=== PATIENT | male | born 1975 | race Hispanic/Latino ===

== ENCOUNTER 2023-10-17 01:21 | Inpatient (IN) | payer BC ==
--- OUTSIDE RECORDS SUMMARY | 2023-10-17 01:24 | XMS REPORT | Continuity of Care Document ---
Author Name Unknown Address [address] [facility] [address] [place] [address] [facility] Address [address] [facility] 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 Role Phone John Pruett Primary Care Physician [phone] SINDI HOWELL Attending Clinician Unavailable Sindi Howell MD Attending Clinician [phone] LUMA JEFF Attending Clinician Unavailable CHAIM THOMAS Attending Clinician CHAIM Trinh Attending Clinician Janessa cantu Doctor Unassigned, Sammy Martinez Attending Clinician U fabiolaailLuma Lion Attending Clinician [phone] [facility] Attending Clinician Chaim Trinh MD Attending Clinician [phone] Payers Payer Name Policy Type Policy Number Effective Date Expirati on Date Source Problems Condition Name Condition Details Condition Category Status Onset Date Resolution Date Last Treatment Date Treating Clinician Comments Source Primary hypertensi on Primary hypertensi on Disease Active 01-10 00:00: 00 [facility] Leg edema Leg edema Disease Active 01-10 00:00: 00 [facility] KWAKU (obstructi ve sleep apnea) KWAKU (obstructi ve sleep apnea) Disease Active 01-10 00:00: 00 [facility] Type 2 diabetes mellitus without complicati on, without long-term current use of insulin Type 2 diabetes mellitus without complicati on, without long-term current use of insulin Disease Active 2021-10 00:00: 00 [facility] Hyperlipid emia, unspecifie d hyperlipid emia type Hyperlipid emia, unspecifie d hyperlipid emia type Disease Active 2021-10 018 00:00: 00 [facility] Cigarette smoker Cigarette smoker Disease Active 2021-10 0 00:00: 00 [facility] Morbid obesity Morbid obesity Disease Active 2021-10 0 00:00: 00 [facility] Hypertensi ve urgency Hypertensi ve urgency Disease Active 2021-10 00:00: 00 [facility] Allergies, Adverse Reactions, Alerts Allergy Name Allergy Type Status Severity Reaction(s) Onset Date Inactive Date Treating Clinician Comments Source NO KNOWN ALLERGIE S Drug Class Active [facility] Social History Social Habit Start Date Stop Date Quantity Comments Source History of tobacco use Cigarette Smoker [facility] Alcohol intake 2023-08-01 00:00:00 2023-08-01 00:00:00 Ex-drinker (finding) [facility] History of Social function 2023-08-01 00:00:00 2023-08-01 00:00:00 [facility] Exposure to SARS-CoV-2 (event) 2022-12-31 00:00:00 2023-01-10 13:29:00 Not sure [facility] Tobacco use and exposure 2022-08-03 00:00:00 2022-08-03 00:00:00 Smokeless tobacco non-user [facility] Sex Assigned At 1975 00:00:00 1975 00:00:00 [facility] Smoking Status Start Date Stop Date Source Tobacco smoking consumption unknown [facility] Occasional tobacco smoker 2022-08-03 00:00:00 [facility] Medications Ordered Medication Name Filled Medication Name Start Date Stop Date Current Medication? Ordering Clinician Indication Dosage Frequency Signature (SIG) Comments Components Source TERAZOSIN 1 mg capsule 2022-10 00:00: 00 Yes [id number] 1mg TAKE 1 CAPSULE BY MOUTH EVERYDAY AT BEDTIME [facility] terazosin 1 mg capsule 2022-1 0-16 00:00: 00 Yes [id number] 1mg Take 1 capsule by mouth at bedtime. [facility] terazosin 1 mg capsule 2022-1 0-16 00:00: 00 Yes [id number] 1mg Take 1 capsule by mouth at bedtime. [facility] terazosin 1 mg capsule 2022-1 0-16 00:00: 00 Yes [id number] 1mg Take 1 capsule by mouth at bedtime. [facility] terazosin 1 mg capsule 2022-1 0-16 00:00: 00 Yes [id number] 1mg Take 1 capsule by mouth at bedtime. [facility] terazosin 1 mg capsule 2022-1 0-16 00:00: 00 Yes [id number] 1mg Take 1 capsule by mouth at bedtime. [facility] terazosin 1 mg capsule 2022-1 0-16 00:00: 00 14 00:00 :00 No [id number] 1mg Take 1 capsule by mouth at bedtime. [facility] amLODIPine 5 mg tablet 3-0 6-23 00:00: 00 Yes 5mg Take 1 tablet by mouth in the morning. [facility] amLODIPine 5 mg tablet 2022-0 6-23 00:00: 00 Yes 5mg Take 1 tablet by mouth in the morning. [facility] amLODIPine 5 mg tablet 3-0 6-23 00:00: 00 Yes 5mg Take 1 tablet by mouth in the morning. [facility] amLODIPine 5 mg tablet 3-0 6-23 00:00: 00 Yes 5mg Take 1 tablet by mouth in the morning. [facility] amLODIPine 5 mg tablet 3-0 6-23 00:00: 00 Yes 5mg Take 1 tablet by mouth in the morning. [facility] amLODIPine 5 mg tablet 3-0 6-23 00:00: 00 Yes 5mg Take 1 tablet by mouth in the morning. [facility] amLODIPine 5 mg tablet 3-0 6-23 00:00: 00 Yes 5mg Take 1 tablet by mouth in the morning. [facility] glimepiride 2 mg tablet 3-0 27 14:20: 13 Yes 2mg Take 1 tablet by mouth in the morning and 1 tablet in the evening. [facility] glimepiride 2 mg tablet 2023-0 -27 14:20: 13 Yes 2mg Take 1 tablet by mouth in the morning and 1 tablet in the evening. [facility] glimepiride 2 mg tablet 3-0 01-10 14:20: 13 Yes 2mg Take 1 tablet by mouth in the morning and 1 tablet in the evening. [facility] glimepiride 2 mg tablet 3-0 01-10 14:20: 13 Yes 2mg Take 1 tablet by mouth in the morning and 1 tablet in the evening. [facility] glimepiride 2 mg tablet 3-0 01-10 14:20: 13 Yes 2mg Take 1 tablet by mouth in the morning and 1 tablet in the evening. [facility] glimepiride 2 mg tablet 3-0 01-10 14:20: 13 Yes 2mg Take 1 tablet by mouth in the morning and 1 tablet in the evening. [facility] glimepiride 2 mg tablet 3-0 01-10 14:20: 13 Yes 2mg Take 1 tablet by mouth in the morning and 1 tablet in the evening. [facility] glimepiride 2 mg tablet 3-0 01-10 14:20: 13 Yes 2mg Take 1 tablet by mouth in the morning and 1 tablet in the evening. [facility] glimepiride 2 mg tablet 3-0 01-10 14:20: 13 Yes 2mg Take 1 tablet by mouth in the morning and 1 tablet in the evening. [facility] glimepiride 2 mg tablet 3-0 27 14:20: 13 Yes 2mg Take 1 tablet by mouth in the morning and 1 tablet in the evening. [facility] glimepiride 2 mg tablet 3-0 27 14:20: 13 Yes 2mg Take 1 tablet by mouth in the morning and 1 tablet in the evening. [facility] glimepiride 2 mg tablet 2022-0 27 14:20: 13 Yes 2mg Take 1 tablet by mouth in the morning and 1 tablet in the evening. [facility] amLODIPine 5 mg tablet 2022-0 27 00:00: 00 Yes 5mg Take 1 tablet by mouth in the morning. [facility] amLODIPine 5 mg tablet 2022-0 27 00:00: 00 Yes 5mg Take 1 tablet by mouth in the morning. [facility] losartan 100 mg tablet 3-0 27 00:00: 00 Yes [id number] 100mg Take 1 tablet by mouth in the morning. [facility] amLODIPine 5 mg tablet 3-0 27 00:00: 00 Yes 5mg Take 1 tablet by mouth in the morning. [facility] losartan 100 mg tablet 3-0 27 00:00: 00 Yes [id number] 100mg Take 1 tablet by mouth in the morning. [facility] amLODIPine 5 mg tablet 2022-0 27 00:00: 00 Yes 5mg Take 1 tablet by mouth in the morning. [facility] losartan 100 mg tablet 3-0 27 00:00: 00 Yes [id number] 100mg Take 1 tablet by mouth in the morning. [facility] losartan 100 mg tablet 3-0 327 00:00: 00 Yes [id number] 100mg Take 1 tablet by mouth in the morning. [facility] losartan 100 mg tablet 3-0 327 00:00: 00 Yes [id number] 100mg Take 1 tablet by mouth in the morning. [facility] losartan 100 mg tablet 3-0 3-27 00:00: 00 Yes [id number] 100mg Take 1 tablet by mouth in the morning. [facility] losartan 100 mg tablet 3-0 3-27 00:00: 00 Yes [id number] 100mg Take 1 tablet by mouth in the morning. [facility] losartan 100 mg tablet 3-0 3-27 00:00: 00 Yes [id number] 100mg Take 1 tablet by mouth in the morning. [facility] losartan 100 mg tablet 2022-0 27 00:00: 00 Yes [id number] 100mg Take 1 tablet by mouth in the morning. [facility] amLODIPine 5 mg tablet 2022-0 01-10 00:00: 00 04-06 00:00 :00 No 5mg Take 1 tablet by mouth in the morning. [facility] hydrALAZINE 100 mg tablet 2022-0 01-09 00:00: 00 Yes [id number] 100mg Take 1 tablet by mouth every 8 (eight) hours. [facility] hydrALAZINE 100 mg tablet 2022-0 26 00:00: 00 Yes [id number] 100mg Take 1 tablet by mouth every 8 (eight) hours. [facility] hydrALAZINE 100 mg tablet 2022-0 01-09 00:00: 00 Yes [id number] 100mg Take 1 tablet by mouth every 8 (eight) hours. [facility] hydrALAZINE 100 mg tablet 2022-0 01-09 00:00: 00 Yes [id number] 100mg Take 1 tablet by mouth every 8 (eight) hours. [facility] hydrALAZINE 100 mg tablet 3-0 26 00:00: 00 Yes [id number] 100mg Take 1 tablet by mouth every 8 (eight) hours. [facility] hydrALAZINE 100 mg tablet 2022-0 26 00:00: 00 Yes [id number] 100mg Take 1 tablet by mouth every 8 (eight) hours. [facility] hydrALAZINE 100 mg tablet 3-0 26 00:00: 00 Yes [id number] 100mg Take 1 tablet by mouth every 8 (eight) hours. [facility] hydrALAZINE 100 mg tablet 3-0 -26 00:00: 00 Yes [id number] 100mg Take 1 tablet by mouth every 8 (eight) hours. [facility] hydrALAZINE 100 mg tablet 3-0 3-26 00:00: 00 Yes [id number] 100mg Take 1 tablet by mouth every 8 (eight) hours. [facility] hydrALAZINE 100 mg tablet 3-0 3-26 00:00: 00 Yes [id number] 100mg Take 1 tablet by mouth every 8 (eight) hours. [facility] hydrALAZINE 100 mg tablet 0 01-09 00:00: 00 Yes [id number] 100mg Take 1 tablet by mouth every 8 (eight) hours. [facility] hydrALAZINE 100 mg tablet 2022-0 01-09 00:00: 00 Yes [id number] 100mg Take 1 tablet by mouth every 8 (eight) hours. [facility] metFORMIN 1,000 mg tablet 2021-10 14:25: 07 Yes 1000mg Take 1,000 mg by mouth in the morning and 1,000 mg in the evening. Take with meals. [facility] glimepiride 2 mg tablet 2021-10 14:25: 07 Yes 2mg Take 2 mg by mouth in the morning and 2 mg in the evening. [facility] simvastatin 20 mg tablet 2021-10 14:25: 07 Yes 20mg Take 20 mg by mouth at bedtime. [facility] metFORMIN 1,000 mg tablet 2021-10 14:25: 07 Yes 1000mg Take 1,000 mg by mouth in the morning and 1,000 mg in the evening. Take with meals. [facility] glimepiride 2 mg tablet 2021-10 14:25: 07 Yes 2mg Take 2 mg by mouth in the morning and 2 mg in the evening. [facility] simvastatin 20 mg tablet 2021-10 14:25: 07 Yes 20mg Take 20 mg by mouth at bedtime. [facility] metFORMIN 1,000 mg tablet 2021-10 14:25: 07 Yes 1000mg Take 1,000 mg by mouth in the morning and 1,000 mg in the evening. Take with meals. [facility] glimepiride 2 mg tablet 2021-10 14:25: 07 Yes 2mg Take 2 mg by mouth in the morning and 2 mg in the evening. [facility] simvastatin 20 mg tablet 2021-10 14:25: 07 Yes 20mg Take 20 mg by mouth at bedtime. [facility] metFORMIN 1,000 mg tablet 2021-10 14:25: 07 Yes 1000mg Take 1,000 mg by mouth in the morning and 1,000 mg in the evening. Take with meals. [facility] glimepiride 2 mg tablet 2021-10 14:25: 07 Yes 2mg Take 2 mg by mouth in the morning and 2 mg in the evening. [facility] simvastatin 20 mg tablet 2021-10 14:25: 07 Yes 20mg Take 20 mg by mouth at bedtime. [facility] metFORMIN 1,000 mg tablet 2021-10 14:25: 07 Yes 1000mg Take 1,000 mg by mouth in the morning and 1,000 mg in the evening. Take with meals. [facility] simvastatin 20 mg tablet 2021-10 14:25: 07 Yes 20mg Take 20 mg by mouth at bedtime. [facility] metFORMIN 1,000 mg tablet 2021-10 14:25: 07 Yes 1000mg Take 1,000 mg by mouth in the morning and 1,000 mg in the evening. Take with meals. [facility] simvastatin 20 mg tablet 2021-10 14:25: 07 Yes 20mg Take 20 mg by mouth at bedtime. [facility] metFORMIN 1,000 mg tablet 2021-10 14:25: 07 Yes 1000mg Take 1,000 mg by mouth in the morning and 1,000 mg in the evening. Take with meals. [facility] simvastatin 20 mg tablet 2021-10 14:25: 07 Yes 20mg Take 20 mg by mouth at bedtime. [facility] metFORMIN 1,000 mg tablet 2021-10 14:25: 07 Yes 1000mg Take 1,000 mg by mouth in the morning and 1,000 mg in the evening. Take with meals. [facility] simvastatin 20 mg tablet 2021-10 14:25: 07 Yes 20mg Take 20 mg by mouth at bedtime. [facility] metFORMIN 1,000 mg tablet 2021-10 14:25: 07 Yes 1000mg Take 1,000 mg by mouth in the morning and 1,000 mg in the evening. Take with meals. [facility] simvastatin 20 mg tablet 2021-10 14:25: 07 Yes 20mg Take 20 mg by mouth at bedtime. [facility] metFORMIN 1,000 mg tablet 2021-10 14:25: 07 Yes 1000mg Take 1,000 mg by mouth in the morning and 1,000 mg in the evening. Take with meals. [facility] simvastatin 20 mg tablet 2021-10 14:25: 07 Yes 20mg Take 20 mg by mouth at bedtime. [facility] metFORMIN 1,000 mg tablet 2021-10 14:25: 07 Yes 1000mg Take 1,000 mg by mouth in the morning and 1,000 mg in the evening. Take with meals. [facility] simvastatin 20 mg tablet 2021-10 14:25: 07 Yes 20mg Take 20 mg by mouth at bedtime. [facility] metFORMIN 1,000 mg tablet 2021-10 14:25: 07 Yes 1000mg Take 1,000 mg by mouth in the morning and 1,000 mg in the evening. Take with meals. [facility] simvastatin 20 mg tablet 2021-10 14:25: 07 Yes 20mg Take 20 mg by mouth at bedtime. [facility] metFORMIN 1,000 mg tablet 2021-10 14:25: 07 Yes 1000mg Take 1,000 mg by mouth in the morning and 1,000 mg in the evening. Take with meals. [facility] simvastatin 20 mg tablet 2021-10 14:25: 07 Yes 20mg Take 20 mg by mouth at bedtime. [facility] metFORMIN 1,000 mg tablet 2021-10 14:25: 07 Yes 1000mg Take 1,000 mg by mouth in the morning and 1,000 mg in the evening. Take with meals. [facility] simvastatin 20 mg tablet 2021-10 14:25: 07 Yes 20mg Take 20 mg by mouth at bedtime. [facility] metFORMIN 1,000 mg tablet 2021-10 14:25: 07 Yes 1000mg Take 1,000 mg by mouth in the morning and 1,000 mg in the evening. Take with meals. [facility] simvastatin 20 mg tablet 2021-10 14:25: 07 Yes 20mg Take 20 mg by mouth at bedtime. [facility] metFORMIN 1,000 mg tablet 2021-10 14:25: 07 Yes 1000mg Take 1,000 mg by mouth in the morning and 1,000 mg in the evening. Take with meals. [facility] simvastatin 20 mg tablet 2021-10 14:25: 07 Yes 20mg Take 20 mg by mouth at bedtime. [facility] losartan 100 mg tablet 2021-10 14:24: 23 09-07 00:00 :00 No 100mg Take 100 mg by mouth in the morning. [facility] losartan 100 mg tablet 2021-10 14:24: 23 09-07 00:00 :00 No 100mg Take 100 mg by mouth in the morning. [facility] losartan 100 mg tablet 2021-10 14:24: 09-07 00:00 :00 No 100mg Take 100 mg by mouth in the morning. [facility] amLODIPine 10 mg tablet 2021-10 00:00: 00 Yes [id number] 10mg Take 1 tablet by mouth in the morning. [facility] hydrALAZINE 100 mg tablet 2021-10 00:00: 00 Yes [id number] 100mg Take 1 tablet by mouth every 8 (eight) hours. [facility] losartan 100 mg tablet 2021-10 00:00: 00 Yes [id number] 100mg Take 1 tablet by mouth in the morning. [facility] amLODIPine 10 mg tablet 2021-10 00:00: 00 Yes [id number] 10mg Take 1 tablet by mouth in the morning. [facility] hydrALAZINE 100 mg tablet 2021-10 00:00: 00 Yes [id number] 100mg Take 1 tablet by mouth every 8 (eight) hours. [facility] losartan 100 mg tablet 2021-10 00:00: 00 Yes [id number] 100mg Take 1 tablet by mouth in the morning. [facility] amLODIPine 10 mg tablet 2021-10 00:00: 00 Yes [id number] 10mg Take 1 tablet by mouth in the morning. [facility] hydrALAZINE 100 mg tablet 2021-10 00:00: 00 Yes [id number] 100mg Take 1 tablet by mouth every 8 (eight) hours. [facility] losartan 100 mg tablet 2021-10 00:00: 00 Yes [id number] 100mg Take 1 tablet by mouth in the morning. [facility] amLODIPine 10 mg tablet 2021-10 00:00: 00 Yes [id number] 10mg Take 1 tablet by mouth in the morning. [facility] hydrALAZINE 100 mg tablet 2021-10 00:00: 00 Yes [id number] 100mg Take 1 tablet by mouth every 8 (eight) hours. [facility] losartan 100 mg tablet 2021-10 00:00: 00 Yes [id number] 100mg Take 1 tablet by mouth in the morning. [facility] amLODIPine 10 mg tablet 2021-10 00:00: 00 Yes [id number] 10mg Take 1 tablet by mouth in the morning. [facility] hydrALAZINE 100 mg tablet 2021-10 00:00: 00 Yes [id number] 100mg Take 1 tablet by mouth every 8 (eight) hours. [facility] losartan 100 mg tablet 2021-10 00:00: 00 Yes [id number] 100mg Take 1 tablet by mouth in the morning. [facility] amLODIPine 10 mg tablet 2021-10 00:00: 00 Yes [id number] 10mg Take 1 tablet by mouth in the morning. [facility] hydrALAZINE 100 mg tablet 2021-10 00:00: 00 Yes [id number] 100mg Take 1 tablet by mouth every 8 (eight) hours. [facility] losartan 100 mg tablet 2021-10 00:00: 00 Yes [id number] 100mg Take 1 tablet by mouth in the morning. [facility] amLODIPine 10 mg tablet 2021-10 00:00: 00 Yes [id number] 10mg Take 1 tablet by mouth in the morning. [facility] hydrALAZINE 100 mg tablet 2021-10 00:00: 00 Yes [id number] 100mg Take 1 tablet by mouth every 8 (eight) hours. [facility] losartan 100 mg tablet 2021-10 00:00: 00 Yes [id number] 100mg Take 1 tablet by mouth in the morning. [facility] amLODIPine 10 mg tablet 2021-10 00:00: 00 Yes [id number] 10mg Take 1 tablet by mouth in the morning. [facility] hydrALAZINE 100 mg tablet 2021-10 00:00: 00 Yes [id number] 100mg Take 1 tablet by mouth every 8 (eight) hours. [facility] losartan 100 mg tablet 2021-10 00:00: 00 Yes [id number] 100mg Take 1 tablet by mouth in the morning. [facility] amLODIPine 10 mg tablet 2021-10 00:00: 00 Yes [id number] 10mg Take 1 tablet by mouth in the morning. [facility] losartan 100 mg tablet 2021-10 00:00: 00 Yes [id number] 100mg Take 1 tablet by mouth in the morning. [facility] losartan 100 mg tablet 2021-10 00:00: 00 Yes [id number] 100mg Take 1 tablet by mouth in the morning. [facility] losartan 100 mg tablet 2021-10 00:00: 00 Yes [id number] 100mg Take 1 tablet by mouth in the morning. [facility] amLODIPine 10 mg tablet 2021-10 00:00: 00 01-10 00:00 :00 No [id number] 10mg Take 1 tablet by mouth in the morning. [facility] amLODIPine 10 mg tablet 2021-10 00:00: 00 01-10 00:00 :00 No [id number] 10mg Take 1 tablet by mouth in the morning. [facility] losartan 100 mg tablet 2021-10 00:00: 00 01-10 00:00 :00 No [id number] 100mg Take 1 tablet by mouth in the morning. [facility] hydrALAZINE 100 mg tablet 2021-10 00:00: 00 01-09 00:00 :00 No [id number] 100mg Take 1 tablet by mouth every 8 (eight) hours. [facility] hydrALAZINE 50 mg tablet 2021-10 16:05: 39 08-20 00:00 :00 No 50mg Take 50 mg by mouth in the morning and 50 mg in the evening. [facility] hydrALAZINE 50 mg tablet 2021-10 16:05: 39 08-20 00:00 :00 No 50mg Take 50 mg by mouth in the morning and 50 mg in the evening. [facility] carvediloL 25 mg tablet 2021-10 00:00: 00 Yes [id number] 25mg Take 1 tablet by mouth in the morning and 1 tablet in the evening. Take with meals. [facility] amLODIPine 10 mg tablet 2021-10 00:00: 00 Yes [id number] 5mg Take 0.5 tablets by mouth in the morning. [facility] hydrALAZINE 50 mg tablet 2021-10 00:00: 00 Yes [id number] 50mg Take 1 tablet by mouth every 8 (eight) hours. [facility] carvediloL 25 mg tablet 2021-10 00:00: 00 Yes [id number] 25mg Take 1 tablet by mouth in the morning and 1 tablet in the evening. Take with meals. [facility] carvediloL 25 mg tablet 2021-10 00:00: 00 Yes [id number] 25mg Take 1 tablet by mouth in the morning and 1 tablet in the evening. Take with meals. [facility] carvediloL 25 mg tablet 2021-10 00:00: 00 Yes [id number] 25mg Take 1 tablet by mouth in the morning and 1 tablet in the evening. Take with meals. [facility] carvediloL 25 mg tablet 2021-10 00:00: 00 Yes [id number] 25mg Take 1 tablet by mouth in the morning and 1 tablet in the evening. Take with meals. [facility] carvediloL 25 mg tablet 2021-10 00:00: 00 Yes [id number] 25mg Take 1 tablet by mouth in the morning and 1 tablet in the evening. Take with meals. [facility] carvediloL 25 mg tablet 2021-10 00:00: 00 Yes [id number] 25mg Take 1 tablet by mouth in the morning and 1 tablet in the evening. Take with meals. [facility] carvediloL 25 mg tablet 2021-10 00:00: 00 Yes [id number] 25mg Take 1 tablet by mouth in the morning and 1 tablet in the evening. Take with meals. [facility] carvediloL 25 mg tablet 2021-10 00:00: 00 Yes [id number] 25mg Take 1 tablet by mouth in the morning and 1 tablet in the evening. Take with meals. [facility] carvediloL 25 mg tablet 2021-10 00:00: 00 Yes [id number] 25mg Take 1 tablet by mouth in the morning and 1 tablet in the evening. Take with meals. [facility] carvediloL 25 mg tablet 2021-10 00:00: 00 Yes [id number] 25mg Take 1 tablet by mouth in the morning and 1 tablet in the evening. Take with meals. [facility] carvediloL 25 mg tablet 2021-10 00:00: 00 Yes [id number] 25mg Take 1 tablet by mouth in the morning and 1 tablet in the evening. Take with meals. [facility] carvediloL 25 mg tablet 2021-10 00:00: 00 Yes [id number] 25mg Take 1 tablet by mouth in the morning and 1 tablet in the evening. Take with meals. [facility] carvediloL 25 mg tablet 2021-10 00:00: 00 Yes [id number] 25mg Take 1 tablet by mouth in the morning and 1 tablet in the evening. Take with meals. [facility] carvediloL 25 mg tablet 2021-10 00:00: 00 Yes [id number] 25mg Take 1 tablet by mouth in the morning and 1 tablet in the evening. Take with meals. [facility] carvediloL 25 mg tablet 2021-10 00:00: 00 Yes [id number] 25mg Take 1 tablet by mouth in the morning and 1 tablet in the evening. Take with meals. [facility] carvediloL 25 mg tablet 2021-10 00:00: 00 Yes [id number] 25mg Take 1 tablet by mouth in the morning and 1 tablet in the evening. Take with meals. [facility] carvediloL 25 mg tablet 2021-10 00:00: 00 Yes [id number] 25mg Take 1 tablet by mouth in the morning and 1 tablet in the evening. Take with meals. [facility] carvediloL 25 mg tablet 2021-10 00:00: 00 Yes [id number] 25mg Take 1 tablet by mouth in the morning and 1 tablet in the evening. Take with meals. [facility] carvediloL 25 mg tablet 2021-10 00:00: 00 Yes [id number] 25mg Take 1 tablet by mouth in the morning and 1 tablet in the evening. Take with meals. [facility] carvediloL 25 mg tablet 2021-10 00:00: 00 Yes [id number] 25mg Take 1 tablet by mouth in the morning and 1 tablet in the evening. Take with meals. [facility] carvediloL 25 mg tablet 2021-10 00:00: 00 Yes [id number] 25mg Take 1 tablet by mouth in the morning and 1 tablet in the evening. Take with meals. [facility] carvediloL 25 mg tablet 2021-10 00:00: 00 Yes [id number] 25mg Take 1 tablet by mouth in the morning and 1 tablet in the evening. Take with meals. [facility] amLODIPine 10 mg tablet 2021-10 00:00: 00 09-07 00:00 :00 No [id number] 5mg Take 0.5 tablets by mouth in the morning. [facility] hydrALAZINE 50 mg tablet 2021-10 00:00: 00 09-07 00:00 :00 No [id number] 50mg Take 1 tablet by mouth every 8 (eight) hours. [facility] amLODIPine 10 mg tablet 2021-10 00:00: 00 09-07 00:00 :00 No [id number] 5mg Take 0.5 tablets by mouth in the morning. [facility] hydrALAZINE 50 mg tablet 2021-10 00:00: 00 09-07 00:00 :00 No [id number] 50mg Take 1 tablet by mouth every 8 (eight) hours. [facility] amLODIPine 10 mg tablet 2021-10 00:00: 00 09-07 00:00 :00 No [id number] 5mg Take 0.5 tablets by mouth in the morning. [facility] hydrALAZINE 50 mg tablet 2021-10 00:00: 00 09-07 00:00 :00 No [id number] 50mg Take 1 tablet by mouth every 8 (eight) hours. [facility] carvediloL 12.5 mg tablet 2021-10 0- 00:00: 00 Yes [id number] 12.5mg Take 1 tablet by mouth in the morning and 1 tablet in the evening. Take with meals. [facility] carvediloL 12.5 mg tablet 2021-10 0-20 00:00: 00 Yes [id number] 12.5mg Take 1 tablet by mouth in the morning and 1 tablet in the evening. Take with meals. [facility] carvediloL 12.5 mg tablet 2021-10 0-20 00:00: 00 08-20 00:00 :00 No [id number] 12.5mg Take 1 tablet by mouth in the morning and 1 tablet in the evening. Take with meals. [facility] cloNIDine (CATAPRES) tablet 0.1 mg 2021-10 018 22:00: 00 08-03 21:05 :[id number] [facility] cloNIDine (CATAPRES) tablet 0.1 mg 2021-10 018 22:00: 00 08-03 21:05 :00 No [id number] .1mg 0.1 mg, Oral, ONCE, 1 dose, On Tue08/03/22 at 1700, Routine [facility] cloNIDine (CATAPRES) tablet 0.1 mg 2021-10 018 22:00: 00 08-03 21:05 :[id number] [facility] cloNIDine (CATAPRES) tablet 0.1 mg 2021-10 018 22:00: 00 08-03 21:05 :00 No [id number] .1mg 0.1 mg, Oral, ONCE, 1 dose, On Tue08/03/22 at 1700, Routine [facility] cloNIDine (CATAPRES) tablet 0.1 mg 2021-1018 22:00: 00 08-03 21:05 :[id number] [facility] cloNIDine (CATAPRES) tablet 0.1 mg 2021-10 018 22:00: 00 08-03 21:05 :00 No [id number] .1mg 0.1 mg, Oral, ONCE, 1 dose, On Tue08/03/22 at 1700, Routine [facility] metFORMIN 1,000 mg tablet 2021-10 16:09: 55 Yes 1000mg Take 1,000 mg by mouth in the morning and 1,000 mg in the evening. Take with meals. [facility] losartan 100 mg tablet 2021-10 16:09: 55 Yes 100mg Take 100 mg by mouth in the morning. [facility] glimepiride 2 mg tablet 2021-10 16:09: 55 Yes 2mg Take 2 mg by mouth in the morning and 2 mg in the evening. [facility] simvastatin 20 mg tablet 2021-10 16:09: 55 Yes 20mg Take 20 mg by mouth at bedtime. [facility] metFORMIN 1,000 mg tablet 2021-10 16:09: 55 Yes 1000mg Take 1,000 mg by mouth in the morning and 1,000 mg in the evening. Take with meals. [facility] glimepiride 2 mg tablet 2021-10 16:09: 55 Yes 2mg Take 2 mg by mouth in the morning and 2 mg in the evening. [facility] simvastatin 20 mg tablet 2021-10 16:09: 55 Yes 20mg Take 20 mg by mouth at bedtime. [facility] metFORMIN 1,000 mg tablet 2021-10 16:09: 55 Yes 1000mg Take 1,000 mg by mouth in the morning and 1,000 mg in the evening. Take with meals. [facility] glimepiride 2 mg tablet 2021-10 16:09: 55 Yes 2mg Take 2 mg by mouth in the morning and 2 mg in the evening. [facility] simvastatin 20 mg tablet 2021-10 16:09: 55 Yes 20mg Take 20 mg by mouth at bedtime. [facility] metFORMIN 1,000 mg tablet 2021-10 16:09: 55 Yes 1000mg Take 1,000 mg by mouth in the morning and 1,000 mg in the evening. Take with meals. [facility] glimepiride 2 mg tablet 2021-10 16:09: 55 Yes 2mg Take 2 mg by mouth in the morning and 2 mg in the evening. [facility] simvastatin 20 mg tablet 2021 16:09: 55 Yes 20mg Take 20 mg by mouth at bedtime. [facility] metFORMIN 1,000 mg tablet 2021-10 16:09: 55 Yes 1000mg Take 1,000 mg by mouth in the morning and 1,000 mg in the evening. Take with meals. [facility] glimepiride 2 mg tablet 2021-10 16:09: 55 Yes 2mg Take 2 mg by mouth in the morning and 2 mg in the evening. [facility] simvastatin 20 mg tablet 2021- 018 16:09: 55 Yes 20mg Take 20 mg by mouth at bedtime. [facility] metFORMIN 1,000 mg tablet 2021-1018 16:09: 55 Yes 1000mg Take 1,000 mg by mouth in the morning and 1,000 mg in the evening. Take with meals. [facility] glimepiride 2 mg tablet 2021-10 16:09: 55 Yes 2mg Take 2 mg by mouth in the morning and 2 mg in the evening. [facility] simvastatin 20 mg tablet 2021-10 16:09: 55 Yes 20mg Take 20 mg by mouth at bedtime. [facility] metFORMIN 1,000 mg tablet 2021-10 16:09: 55 Yes 1000mg Take 1,000 mg by mouth in the morning and 1,000 mg in the evening. Take with meals. [facility] glimepiride 2 mg tablet 2021-10 16:09: 55 Yes 2mg Take 2 mg by mouth in the morning and 2 mg in the evening. [facility] simvastatin 20 mg tablet 2021-10 16:09: 55 Yes 20mg Take 20 mg by mouth at bedtime. [facility] metFORMIN 1,000 mg tablet 2021-10 16:09: 55 Yes 1000mg Take 1,000 mg by mouth in the morning and 1,000 mg in the evening. Take with meals. [facility] glimepiride 2 mg tablet 2021-10 16:09: 55 Yes 2mg Take 2 mg by mouth in the morning and 2 mg in the evening. [facility] simvastatin 20 mg tablet 2021-10 16:09: 55 Yes 20mg Take 20 mg by mouth at bedtime. [facility] metFORMIN 1,000 mg tablet 2021-1018 16:09: 55 Yes 1000mg Take 1,000 mg by mouth in the morning and 1,000 mg in the evening. Take with meals. [facility] losartan 100 mg tablet 2021-18 16:09: 55 Yes 100mg Take 100 mg by mouth in the morning. [facility] hydrALAZINE 50 mg tablet 2021-18 16:09: 55 Yes 50mg Take 50 mg by mouth in the morning and 50 mg in the evening. [facility] glimepiride 2 mg tablet 2021-18 16:09: 55 Yes 2mg Take 2 mg by mouth in the morning and 2 mg in the evening. [facility] simvastatin 20 mg tablet 2021-18 16:09: 55 Yes 20mg Take 20 mg by mouth at bedtime. [facility] metFORMIN 1,000 mg tablet 2021-10 16:09: 55 Yes 1000mg Take 1,000 mg by mouth in the morning and 1,000 mg in the evening. Take with meals. [facility] losartan 100 mg tablet 2021- 16:09: 55 Yes 100mg Take 100 mg by mouth in the morning. [facility] hydrALAZINE 50 mg tablet 2021-10 16:09: 55 Yes 50mg Take 50 mg by mouth in the morning and 50 mg in the evening. [facility] glimepiride 2 mg tablet 2021-10 16:09: 55 Yes 2mg Take 2 mg by mouth in the morning and 2 mg in the evening. [facility] simvastatin 20 mg tablet 2021- 16:09: 55 Yes 20mg Take 20 mg by mouth at bedtime. [facility] metFORMIN 1,000 mg tablet 2021-10 16:09: 55 Yes 1000mg Take 1,000 mg by mouth in the morning and 1,000 mg in the evening. Take with meals. [facility] losartan 100 mg tablet 2021-10 16:09: 55 Yes 100mg Take 100 mg by mouth in the morning. [facility] hydrALAZINE 50 mg tablet 2021- 018 16:09: 55 Yes 50mg Take 50 mg by mouth in the morning and 50 mg in the evening. [facility] glimepiride 2 mg tablet 2021-10 16:09: 55 Yes 2mg Take 2 mg by mouth in the morning and 2 mg in the evening. [facility] simvastatin 20 mg tablet 2021-10 16:09: 55 Yes 20mg Take 20 mg by mouth at bedtime. [facility] metFORMIN 1,000 mg tablet 2021-10 16:09: 55 Yes 1000mg Take 1,000 mg by mouth in the morning and 1,000 mg in the evening. Take with meals. [facility] losartan 100 mg tablet 2021-10 16:09: 55 Yes 100mg Take 100 mg by mouth in the morning. [facility] hydrALAZINE 50 mg tablet 2021-10 16:09: 55 Yes 50mg Take 50 mg by mouth in the morning and 50 mg in the evening. [facility] glimepiride 2 mg tablet 2021-10 16:09: 55 Yes 2mg Take 2 mg by mouth in the morning and 2 mg in the evening. [facility] simvastatin 20 mg tablet 2021-10 16:09: 55 Yes 20mg Take 20 mg by mouth at bedtime. [facility] metFORMIN 1,000 mg tablet 2021-10 16:09: 55 Yes 1000mg Take 1,000 mg by mouth in the morning and 1,000 mg in the evening. Take with meals. [facility] losartan 100 mg tablet 2021-10 16:09: 55 Yes 100mg Take 100 mg by mouth in the morning. [facility] glimepiride 2 mg tablet 2021-10 16:09: 55 Yes 2mg Take 2 mg by mouth in the morning and 2 mg in the evening. [facility] simvastatin 20 mg tablet 2021-10 16:09: 55 Yes 20mg Take 20 mg by mouth at bedtime. [facility] triamterene -hydrochlor othiazide 37.5-25 mg per capsule 2021-10 00:00: 00 Yes [id number] 1{capsu le} Take 1 capsule by mouth every morning. [facility] amLODIPine 10 mg tablet 2021-10 0-18 00:00: 00 Yes [id number] 10mg Take 1 tablet by mouth in the morning. [facility] triamterene -hydrochlor othiazide 37.5-25 mg per capsule 2021-10 0-18 00:00: 00 Yes [id number] 1{capsu le} Take 1 capsule by mouth every morning. [facility] amLODIPine 10 mg tablet 2021-10 0-18 00:00: 00 Yes [id number] 10mg Take 1 tablet by mouth in the morning. [facility] amLODIPine 10 mg tablet 2021-10 018 00:00: 00 Yes [id number] 10mg Take 1 tablet by mouth in the morning. [facility] amLODIPine 10 mg tablet 2021-10 018 00:00: 00 Yes [id number] 10mg Take 1 tablet by mouth in the morning. [facility] amLODIPine 10 mg tablet 2021-10 018 00:00: 00 08-20 00:00 :00 No [id number] 10mg Take 1 tablet by mouth in the morning. [facility] amLODIPine 10 mg tablet 2021-10 018 00:00: 00 08-20 00:00 :00 No [id number] 10mg Take 1 tablet by mouth in the morning. [facility] triamterene -hydrochlor othiazide 37.5-25 mg per capsule 2021-10 018 00:00: 00 08-05 00:00 :00 No [id number] 1{capsu le} Take 1 capsule by mouth every morning. [facility] triamterene -hydrochlor othiazide 37.5-25 mg per capsule 2021-10 018 00:00: 00 08-05 00:00 :00 No [id number] 1{capsu le} Take 1 capsule by mouth every morning. [facility] Vital Signs Vital Name Observation Time Observation Value Comments S nadja Systolic blood pressure 2023-08-01 14:44:00 177 mm[Hg] [facility] Diastolic blood pressure 2023-08-01 14:44:00 101 mm[Hg] [facility] Heart rate 2023-08-01 14:44:00 72 /min Unive [facility] Oxygen saturation in Arterial blood by Pulse oximetry 2023-08-01 14:44:00 92 /min [facility] Respiratory rate 2023-08-01 14:42:00 18 /min [facility] Body height 2023-08-01 14:42:00 170.2 cm [facility] Body weight 2023-08-01 14:42:00 130.273 kg [facility] BMI 2023-08-01 14:42:00 44.98 kg/m2 [facility] Systolic blood pressure 2023-01-10 19:27:00 152 mm[Hg] [facility] Diastolic blood pressure 2023-01-10 19:27:00 85 mm[Hg] [facility] Heart rate 2023-01-10 19:27:00 73 /min Un[facility] Respiratory rate 2023-01-10 19:27:00 18 /min [facility] Oxygen saturation in Arterial blood by Pulse oximetry 2023-01-10 19:27:00 97 /min [facility] Body temperature 2023-01-10 19:24:00 36.5 Franci [facility] Body height 2023-01-10 19:24:00 170.2 cm [facility] Body weight 2023-01-10 19:24:00 130.137 kg [facility] BMI 2023-01-10 19:24:00 44.93 kg/m2 [facility] Systolic blood pressure 2022-10-07 20:30:00 154 mm[Hg] [facility] Diastolic blood pressure 2022-10-07 20:30:00 77 mm[Hg] [facility] Heart rate 2022-10-07 20:26:00 78 /min [facility] Body temperature 2022-10-07 20:26:00 37 Franci [facility] Respiratory rate 2022-10-07 20:26:00 16 /min [facility] Body height 2022-10-07 20:26:00 170.2 cm [facility] Body weight 2022-10-07 20:26:00 134.718 kg [facility] BMI 2022-10-07 20:26:00 46.52 kg/m2 [facility] Oxygen saturation in Arterial blood by Pulse oximetry 2022-10-07 20:26:00 96 /min [facility] Systolic blood pressure 2022-09-07 20:08:00 164 mm[Hg] [facility] Diastolic blood pressure 2022-09-07 20:08:00 95 mm[Hg] [facility] Heart rate 2022-09-07 20:08:00 75 /min [facility] Oxygen saturation in Arterial blood by Pulse oximetry 2022-09-07 20:08:00 98 /min [facility] Respiratory rate 2022-09-07 20:04:00 19 /min [facility] Body height 2022-09-07 20:04:00 170.2 cm [facility] Body weight 2022-09-07 20:04:00 134.673 kg [facility] BMI 2022-09-07 20:04:00 46.50 kg/m2 [facility] Systolic blood pressure 2022-08-03 21:42:00 229 mm[Hg] [facility] Diastolic blood pressure 2022-08-03 21:42:00 126 mm[Hg] [facility] Heart rate 2022-08-03 21:42:00 80 /min [facility] 2022-08-03 20:57:00 19 /min [facility] Body height 2022-08-03 20:57:00 168.9 cm [facility] Body weight 2022-08-03 20:57:00 137.44 kg Univ [facility] BMI 2022-08-03 20:57:00 48.17 kg/m2 [facility] Oxygen saturation in Arterial blood by Pulse oximetry 2022-08-03 20:57:00 94 /min [facility] Procedures Procedure Date / Time Performed Performing Clinician Source INSURANCE CORRESPONDENCE 2023-01-21 05:01:00 Doc tor Unassigned, Sammy Martinez [facility] EXTERNAL PROVIDER - ADC CARDIOLOGY 2022-10-30 06:01:00 Doctor Unassigned, Sammy Martinez [facility] SLEEP STUDY DATA REPORT 2022-09-07 06:01:00 Doct or Unassigned, Sammy Martinez [facility] EXTERNAL PROVIDER - [facility] CARDIOLOGY 2022-08-17 05:01:00 Doctor Unassigned, Sammy Martinez [facility] HB ECG ROUTINE & RHYTHM STRIP 2022-08-03 21:04:12 Sindi Howell [facility] ASSIGNMENT OF BENEFITS 2022-08-03 20:42:44 Docto r Unassigned, Sammy Martinez [facility] Encounters Start Date/Time End Date/Time Encounter Type Admission Type Attending [facility] Care Facility Care Department Encounter ID Source 2023-08-30 00:00:00 2023-08-30 00:00:00 [facility] 1.2.840.114 350.1.13.10 4.2.7.2.[id number] [facility] 2023-08-02 00:00:00 2023-08-02 00:00:00 [facility] 1.2.840.114 350.1.13.10 4.2.7.2.[id number] [facility] 2023-08-01 09:40:00 2023-08-01 10:00:07 Outpatient R SINDI HOWELL [facility] [id number] [facility] 2023-08-01 09:40:00 2023-08-01 10:00:07 [facility] 1.2.840.114 350.1.13.10 4.2.7.2.[id number] [facility] 2023-07-08 09:20:00 2023-07-08 09:20:00 Outpatient R LYNDA, QIANGJUN [facility] [id number] [facility] 2023-04-06 00:00:00 2023-04-06 00:00:00 [facility] 1.2.840.114 350.1.13.10 4.2.7.2.[id number] [facility] 2023-01-29 20:00:00 2023-01-29 20:00:00 Outpatient R DONTA, CHAIM KAYYGONZALEZ, JOAQUINANJGalilea [facility] [id number] [facility] 2023-01-21 00:00:00 2023-01-21 00:00:00 Orders Only Doctor Unassigned, Sammy Martinez [facility] 1.2840.114 350.1.13.10 4.2.7.2.[id number] [facility] 2023-01-10 14:20:00 2023-01-10 14:38:34 [id number] 2023-01-10 14:20:00 2023-01-10 14:38:34 Office Visit Lynda [facility] BU[facility] 1.2.840.114 350.1.13.10 4.2.7.2.[id number] [facility] 2023-01-10 00:00:00 2023-01-10 00:00:00 Refill Lynda [facility] BUILDING 1.2.840.114 350.1.13.10 4.2.7.2.[id number] [facility] 2023-01-07 00:00:00 2023-01-07 00:00:00 Refill Lynda [facility] BUILDING 1.2.840.114 350.1.13.10 4.2.7.2.[id number] [facility] 2022-10-30 00:00:00 2022-10-30 00:00:00 Orders Only Doctor Unassigned, Sammy Martinez [facility] 1.2.840.114 350.1.13.10 4.2.7.2.[id number] [facility] 2022-10-07 14:30:00 2022-10-07 15:12:57 [facility] [id number] [facility] 2022-10-07 14:30:00 2022-10-07 15:12:57 Office Visit Luma Jeff [facility] 1.2.840.114 350.1.13.10 4.2.7.2.[id number] [facility] 2022-09-13 00:00:00 2022-09-13 00:00:00 [facility] 1.2.840.114 350.1.13.10 4.2.7.2.[id number] [facility] 2022-09-09 00:00:00 2022-09-09 00:00:00 Patient Secure Msg Lynda [facility] BUILDING 1.2.840.114 350.1.13.10 4.2.7.2.[id number] [facility] 2022-09-07 14:00:00 2022-09-07 14:28:18 [facility] 1.2.840.114 350.1.13.10 4.2.7.2.[id number] [facility] 2022-09-07 10:00:00 2022-09-07 10:15:00 Social Media Project Manager Visit [facility] Chaim Thomas [facility] 1.2.840.114 350.1.13.10 4.2.7.2.[id number] [facility] 2022-09-07 10:00:00 2022-09-07 10:00:00 Outpatient R CHAIM THOMAS STRANJGalilea [facility] [id number] [facility] 2022-09-07 00:00:00 2022-09-07 00:00:00 Orders Only Doctor Unassigned, Sammy Martinez [facility] 1.2840.114 350.1.13.10 4.2.7.2.[id number] [facility] 2022-09-06 09:14:29 2022-09-06 09:15:00 [facility] [id number] [facility] 2022-08-20 00:00:00 2022-08-20 00:00:00 Delroy Howell [facility] 1.840.114 350.1.13.10 4.2.7.2.[id number] [facility] 2022-08-17 00:00:00 2022-08-17 00:00:00 Orders Only Doctor Unassigned, Sammy Martinez [facility] 1.2840.114 350.1.13.10 4.2.7.2.[id number] [facility] 2022-08-06 00:00:00 2022-08-06 00:00:00 [facility] 1.2.840.114 350.1.13.10 4.2.7.2.[id number] [facility] 2022-08-05 00:00:00 2022-08-05 00:00:00 [facility] 1.2.840.114 350.1.13.10 4.2.7.2.[id number] [facility] 2022-08-03 16:00:00 2022-08-03 16:49:12 [facility] [id number] [facility] 2022-08-03 16:00:00 2022-08-03 16:49:12 [facility] 1.2.840.114 350.1.13.10 4.2.7.2.[id number] [facility] 2022-08-03 00:00:00 2022-08-03 00:00:00 Orders Only Doctor Unassigned, Sammy Martinez [facility] 1.2.840.114 350.1.13.10 4.2.7.2.[id number] [facility]
[2023-10-17] MEDS ORDERED: CEFTRIAXONE 1000 MG/VIAL ONE (01:44)
[2023-10-17] MEDS ORDERED: ACETAMINOPHEN 500 MG TAB ONE (01:44)
[2023-10-17] MEDS ORDERED: NA CHLORIDE 0.9% 250 ML ONE (01:44)
[2023-10-17] MEDS ORDERED: AZITHROMYCIN 500 MG INJ IVPB ONE (01:44)
[2023-10-17] MEDS ORDERED: IBUPROFEN 400 MG TAB ONE (01:44)
[2023-10-17] MEDS ORDERED: NA CHLORIDE 0.9% 1,000 ML ONE (01:45)
[2023-10-17 02:04] LABS: Absolute Lymphocytes (CBC) 0.3 K/uL (0.7-4.9); Hematocrit 29.8 % (39.6-49.0); MCV 89.3 fL (80-100); MPV 8.4 fL (7.6-11.3); Platelets 157 thou/uL (152-406); RBC Red Blood Cell Count 3.33 M/uL (4.33-5.43)
[2023-10-17 02:10] LABS: Protime INR 1.23
[2023-10-17 02:11] LABS: SARS-CoV-2 Antigen Rapid Res Negative (Negative)
--- NOTE | 2023-10-17 02:22 | ER ---
Nurse's Notes [facility] Name: Irving Landis III Age: 47 yrs Sex: Male : 1975 Arrival Date: 10/17/2023 Time: 01:21 Bed 20 Private MD: Diagnosis: Influenza due to identified novel influenza A virus;Acute respiratory failure with hypoxia;Acute kidney failure, unspecified Presentation: 10/17 01:30 Initial Sepsis Screen: Does the patient meet any 2 criteria? RR > 20 per min. Temp pf1 <36.0*C (96.8*F)) or > 38.3*C (100.9*F). HR > 90 bpm. Yes. 01:30 Chief complaint: Patient states: SOB with cough,congestion and fever of highest temp pf1 102.1F,onset Tuesday, also C/O abdominal distention for 3-4 days. 01:30 Coronavirus screen: Vaccine status: Patient reports receiving the 2nd dose of the covid pf1 vaccine. [facility] Client denies travel out of the [place] in the last 14 days. Client presents with at least one sign or symptom that may indicate coronavirus-19. Ebola Screen: Patient negative for fever greater than or equal to 101.5 degrees Fahrenheit, and additional compatible Ebola Virus Disease symptoms. Initial Sepsis Screen: Does the patient meet any 2 criteria? RR > 20 per min. Temp <36.0*C (96.8*F)) or > 38.3*C (100.9*F). HR > 90 bpm. Yes Does the patient have a suspected source of infection? No. Patient's initial sepsis screen is negative. Risk Assessment: Do you want to hurt yourself or someone else?. 01:30 Method Of Arrival: Ambulatory pf1 02:01 Risk Assessment: Do you want to hurt yourself or someone else? Patient reports no ha1 desire to harm self or others. Onset of symptoms was October 12, 2024. 02:01 Acuity: THOMAS 2 pf1 Triage Assessment: 01:30 General: Appears uncomfortable, Behavior is cooperative, anxious. Pain: Denies pain. ha1 Neuro: Level of Consciousness is awake, alert, obeys commands, Oriented to person, place, time, situation. Cardiovascular: Capillary refill < 3 seconds Patient's skin is warm and dry. Cardiovascular: Reports shortness of breath, Denies chest pain. Respiratory: Airway is patent Respiratory effort is labored, Respiratory pattern is tachypnea. Respiratory: Reports shortness of breath at rest cough that is hacking, labored breathing pain with cough. GI: GI: Abdomen is round obese. : No signs and/or symptoms were reported regarding the genitourinary system. Derm: Skin is pink, warm \T\ dry. Musculoskeletal: Circulation, motion, and sensation intact. Range of motion: intact in all extremities. Historical: - Allergies: 04:19 No Known Allergies; km8 - Home Meds: 04:19 terazosin 1 mg oral capsule [Active]; amlodipine 5 mg tablet [Active]; losartan 100 mg km8 oral tablet [Active]; hydralazine 100 mg Oral tablet [Active]; carvedilol 25 mg oral tablet [Active]; metformin 1,000 mg Oral tablet [Active]; glimepiride 2 mg Oral tablet [Active]; simvastatin 20 mg Oral tablet [Active]; - PMHx: 04:19 Diabetes mellitus; Hypertensive disorder; Hypercholesterolemia; km8 - Immunization history:: Client reports receiving the 2nd dose of the Covid vaccine, . - Social history:: Smoking status: Patient/guardian denies using tobacco, Stopped _ months ago 1. Screenin:01 [facility] ED Fall Risk Assessment (Adult) History of falling in the last 3 months, ha1 including since admission No falls in past 3 months (0 pts) Confusion or Disorientation No (0 pts) Intoxicated or Sedated No (0 pts) Impaired Gait No (0 pts) Mobility Assist Device Used No (0 pt) Altered Elimination No (0 pt) Score/Fall Risk Level 0 - 2 = Low Risk Oriented to surroundings, Maintained a safe environment, Educated pt \T\ family on fall prevention, incl call for assistance when getting out of bed, Hourly rounding (assess needs \T\ fall precautionary measures) done. Abuse screen: Denies threats or abuse. Denies injuries from another. Nutritional screening: No deficits noted. Tuberculosis screening: No symptoms or risk factors identified. Assessment: 01:30 Reassessment: see triage assessment. ha1 02:30 Reassessment: Patient appears in no apparent distress at this time. Patient and/or km8 family updated on plan of care and expected duration. Pain level reassessed. Patient is alert, oriented x 3, equal unlabored respirations, skin warm/dry/pink. Cardiovascular: Capillary refill < 3 seconds Patient's skin is warm and dry. Respiratory: Airway is patent Respiratory effort is even, unlabored, Respiratory pattern is regular, symmetrical. 04:09 Reassessment: Patient appears in no apparent distress at this time. No changes from km8 previously documented assessment. Patient and/or family updated on plan of care and expected duration. Pain level reassessed. Patient is alert, oriented x 3, equal unlabored respirations, skin warm/dry/pink. 05:00 Reassessment: Patient appears in no apparent distress at this time. No changes from km8 previously documented assessment. Patient and/or family updated on plan of care and expected duration. Pain level reassessed. Patient is alert, oriented x 3, equal unlabored respirations, skin warm/dry/pink. 07:20 Reassessment: US at bedside . aa5 07:44 Reassessment: Patient is alert, oriented x 3, equal unlabored respirations, skin aa5 warm/dry/pink. Vital Signs: 01:30 BP 191 / 92; Pulse 112; Resp 24; Temp 102.1; Pulse Ox 80% on R/A; Weight 109.77 kg; pf1 Height 5 ft. 7 in. ; 01:55 BP 191 / 92; Pulse 107; Resp 24 S; Pulse Ox 98% on 15 lpm Non-rebreather mask; ha1 02:30 BP 169 / 82; Pulse 92; Resp 22; Pulse Ox 99% on 15 lpm Non-rebreather mask; km8 03:00 BP 166 / 74; Pulse 91; Resp 22; Pulse Ox 96% on 15 lpm Non-rebreather mask; km8 04:00 BP 145 / 74; Pulse 79; Resp 16; Temp 98.6(O); Pulse Ox 93% on 3 lpm NC; km8 05:00 BP 153 / 83; Pulse 80; Resp 16; Pulse Ox 92% on 3 lpm NC; km8 06:00 BP 160 / 77; Pulse 67; Resp 16; Pulse Ox 92% on 3 lpm NC; km8 07:40 BP 147 / 82; Pulse 67; Resp 18 S; Pulse Ox 94% on 3 lpm NC; aa5 01:30 Body Mass Index 37.90 (109.77 kg, 170.18 cm) pf1 ED Course: 01:28 Patient arrived in ED. vc1 01:28 Jason Byrd MD is Attending Physician. ec2 01:30 Arm band placed on right wrist. ha1 01:30 Patient has correct armband on for positive identification. Placed in gown. Bed in low ha1 position. Call light in reach. Side rails up X 1. Adult w/ patient. 01:40 Inserted saline lock: 20 gauge in right antecubital area, using aseptic technique. ha1 Blood collected. 01:55 Blood Culture Adult (2) Sent. ha1 01:55 Lactate w/ 2H reflex if indic. Sent. ha1 01:55 Protime (+inr) Sent. ha1 01:55 Ptt, Activated Sent. ha1 01:55 Basic Metabolic Panel Sent. ha1 01:55 CBC with Diff Sent. ha1 01:55 Troponin HS Sent. ha1 02:02 Triage completed. ha1 02:08 XRAY Chest (1 view) In Process Unspecified. EDMS 02:17 No provider procedures requiring assistance completed. km8 02:21 Mirela Sweet MD is Hospitalizing Provider. ec2 04:10 Provided Education on: admission process. km8 06:00 Patient admitted, IV remains in place. km8 Administered Medications: 01:56 Drug: Ibuprofen PO 800 mg PO once Route: PO; km8 04:16 Follow up: Response: No adverse reaction; Temperature is decreased km8 01:57 Drug: NS 0.9% IV 1000 ml IV at 1 bolus Per protocol; 1000 mL bolus Route: IV; Rate: 1 km8 bolus; Site: right antecubital; 03:00 Follow up: IV Status: Completed infusion; IV Intake: 1000ml km8 01:57 Drug: Acetaminophen PO 1000 mg PO once Route: PO; km8 04:16 Follow up: Response: No adverse reaction; Temperature is decreased 8 02:10 Drug: Rocephin IV 1 grams IV at calculated rate once; Given slow IV push per pharmacy km8 instructions Route: IV; Rate: calculated rate; Site: right antecubital; 02:12 Follow up: IV Status: Completed infusion; IV Intake: 10ml [facility] 02:10 Drug: AZITHromycin IVPB 500 mg IVPB once over 1 hrs; (mix in 250 mL NS) Route: IVPB; km8 Infused Over: 1 hrs; Site: right antecubital; 03:10 Follow up: Response: No adverse reaction; IV Status: Completed infusion; IV Intake: km8 250ml 02:26 Drug: Oseltamivir PO 75 mg PO once Route: PO; 8 04:15 Follow up: Response: No adverse reaction [facility] Medication: 02:17 VIS not applicable for this client. 8 Intake: 02:12 IV: 10ml; Total: 10ml. 8 03:00 IV: 1000ml; Total: 1010ml. km8 03:10 IV: 250ml; Total: 1260ml. Outcome: 02:22 Decision to Hospitalize by Provider. ec2 06:00 Admitted to ER Hold. Please see [facility] for further documentation. 06:00 Condition: stable 06:00 Instructed on the need for admit, Demonstrated understanding of instructions, 07:44 Admitted to Med/surg accompanied by tech, via wheelchair, with oxygen, Report called to francheska Glez RN 07:44 Condition: stable 07:44 Instructed on the need for admit, Demonstrated understanding of instructions, 08:06 Patient left the ED. ll1 Signatures: Dispatcher [employer] EDMS Layla Barrett RN RN Cristobal Givens RN RN ll1 Ivanna Louie RN RN 1 Meka Sneed RN RN radha1 Teresa Bran RN RN pf1 Jason Byrd MD MD ec2 Renay Govea RN RN km8 Corrections: (The following items were deleted from the chart) 01:56 01:41 Method Of Arrival: EMS: [facility] 02:02 02:01 Initial Sepsis Screen: Does the patient meet any 2 criteria? RR > 20 per min. pf1 Temp <36.0*C (96.8*F)) or > 38.3*C (100.9*F). HR > 90 bpm. Yes ha1 02:03 02:01 Acuity: THOMAS 3 ha1 pf1 04:15 04:00 BP 145 / 74; Pulse 79bpm; Pulse Ox 93% 2 lpm Nasal Cannula; [facility] 04:25 04:19 Immunization history: Adult Immunizations unknown, 8 km8 05:17 04:00 BP 145 / 74; Pulse 79bpm; Resp 16bpm; Pulse Ox 93% 2 lpm Nasal Cannula; Temp km8 98.6F Oral; km8
--- NOTE | 2023-10-17 02:22 | EDPHYS ---
Physician Documentation [facility] Name: Irving Landis III Age: 47 yrs Sex: Male : 1975 Arrival Date: 10/17/2023 Time: 01:21 Bed 20 Private MD: ED Physician Jason Byrd HPI: 10/17 01:37 This 47 yrs old Male presents to ER via Unassigned with complaints of cough, ec2 sob . 01:37 Patient with history of hypertension arrives today due to concern for cough and ec2 shortness of breath. Patient reports he is experiencing approximately 1 week of symptoms. Patient reports having cough and congestion and difficulty breathing. Patient reports fevers and chills, some nausea without vomiting. Denies any diarrhea symptoms. Patient reports no sick contacts at home. Reports no known underlying pulmonary disease. He is approximately a one third a pack per day smoker.. Historical: - Allergies: 04:19 No Known Allergies; km8 - Home Meds: 04:19 terazosin 1 mg oral capsule [Active]; amlodipine 5 mg tablet [Active]; losartan 100 mg km8 oral tablet [Active]; hydralazine 100 mg Oral tablet [Active]; carvedilol 25 mg oral tablet [Active]; metformin 1,000 mg Oral tablet [Active]; glimepiride 2 mg Oral tablet [Active]; simvastatin 20 mg Oral tablet [Active]; - PMHx: 04:19 Diabetes mellitus; Hypertensive disorder; Hypercholesterolemia; km8 - Immunization history:: Client reports receiving the 2nd dose of the Covid vaccine, . - Social history:: Smoking status: Patient/guardian denies using tobacco, Stopped _ months ago 1. ROS: 01:37 Constitutional: as per HPi ec2 Exam: 01:38 Constitutional: GEN: NAD Head: atraumatic Eyes: EOMI Ears: External ears are ec2 normal. CV: Tachycardic LUNGS: no respiratory distress, scattered rales noted ABD: non-distended SKIN: no evidence of rashes MSK: no evidence of trauma NEURO: moves all extremities equally Vital Signs: 01:30 BP 191 / 92; Pulse 112; Resp 24; Temp 102.1; Pulse Ox 80% on R/A; Weight 109.77 kg; pf1 Height 5 ft. 7 in. ; 01:55 BP 191 / 92; Pulse 107; Resp 24 S; Pulse Ox 98% on 15 lpm Non-rebreather mask; ha1 02:30 BP 169 / 82; Pulse 92; Resp 22; Pulse Ox 99% on 15 lpm Non-rebreather mask; km8 03:00 BP 166 / 74; Pulse 91; Resp 22; Pulse Ox 96% on 15 lpm Non-rebreather mask; km8 04:00 BP 145 / 74; Pulse 79; Resp 16; Temp 98.6(O); Pulse Ox 93% on 3 lpm NC; km8 05:00 BP 153 / 83; Pulse 80; Resp 16; Pulse Ox 92% on 3 lpm NC; km8 06:00 BP 160 / 77; Pulse 67; Resp 16; Pulse Ox 92% on 3 lpm NC; km8 07:40 BP 147 / 82; Pulse 67; Resp 18 S; Pulse Ox 94% on 3 lpm NC; aa5 01:30 Body Mass Index 37.90 (109.77 kg, 170.18 cm) pf1 MDM: 01:31 Patient medically screened. ec2 01:38 Data reviewed: vital signs. ED course: Patient arrives today for evaluation of ec2 shortness of breath and cough and cold symptoms. Examination remarkable for tachycardic individual was objectively febrile. Will obtain a septic workup and empirically treat for pulmonary pathology. Currently considered pneumonia, influenza/COVID, low suspicion for other bacterial process like UTI or bacteremia.. 02:13 ED course: CBC is reassuring with slight anemia noted. Coagulation profile is ec2 unremarkable, negative COVID testing . 02:19 ED course: Patient is flu a positive. Will give the patient Tamiflu.. ec2 02:23 ED course: I will admit the patient for hypoxia secondary to influenza A. Metabolic ec2 profile with appropriate electrolytes, creatinine 1 markedly elevated at 5.9 and GFR of 11. I discussed case with the hospitalist, pending admission.. 06:19 ED course: Rising drip to 135, relayed to primary team, Dr. Trent.. ec2 10/17 01:31 Order name: Basic Metabolic Panel; Complete Time: 06:18 ec2 10/17 01:31 Order name: CBC with Diff; Complete Time: 04:37 ec2 10/17 01:31 Order name: Troponin HS; Complete Time: 06:18 ec2 10/17 01:37 Order name: Blood Culture Adult (2) ec2 10/17 01:37 Order name: Lactate w/ 2H reflex if indic.; Complete Time: 02:19 ec2 10/17 01:37 Order name: Protime (+inr); Complete Time: 02:13 ec2 10/17 01:37 Order name: Ptt, Activated; Complete Time: 02:13 ec2 10/17 01:37 Order name: SARS RAPID; Complete Time: 02:13 ec2 10/17 01:37 Order name: Influenza Screen (a \T\ B); Complete Time: 02:19 ec2 10/17 02:12 Order name: Manual Differential; Complete Time: 04:37 EDMS 10/17 04:12 Order name: Procalcitonin EDMS 10/17 04:16 Order name: ABG Arterial Blood Gas; Complete Time: 06:18 EDMS 10/17 04:23 Order name: NT PRO-BNP; Complete Time: 06:18 EDMS 10/17 04:36 Order name: Urinalysis w/ reflexes EDMS 10/17 04:36 Order name: CBC with Automated Diff EDMS 10/17 04:36 Order name: CBC with Automated Diff EDMS 10/17 04:36 Order name: Comprehensive Metabolic Panel EDMS 10/17 04:36 Order name: Comprehensive Metabolic Panel EDMS 10/17 04:36 Order name: Magnesium EDMS 10/17 04:36 Order name: Magnesium EDMS 10/17 04:36 Order name: Phosphorus EDMS 10/17 04:36 Order name: Phosphorus EDMS 10/17 04:36 Order name: Troponin High Sensitivity EDMS 10/17 04:36 Order name: Troponin High Sensitivity; Complete Time: 06:19 EDMS 10/17 04:36 Order name: Troponin High Sensitivity EDMS 10/17 04:39 Order name: Ur Protein EDMS 10/17 04:39 Order name: Urinalysis W/Microscopic EDMS 10/17 04:39 Order name: Liver (Hepatic) Function EDMS 10/17 04:39 Order name: Liver (Hepatic) Function; Complete Time: 06:19 EDMS 10/17 04:39 Order name: Liver (Hepatic) Function EDMS 10/17 04:39 Order name: Uric Acid EDMS 10/17 04:39 Order name: Uric Acid; Complete Time: 06:19 EDMS 10/17 04:39 Order name: Uric Acid EDMS 10/17 01:31 Order name: XRAY Chest (1 view) ec2 10/17 04:12 Order name: Echo with Doppler EDMS 10/17 04:12 Order name: Renal Ultrasound-Limited EDMS 10/17 01:31 Order name: EKG; Complete Time: 01:32 ec2 10/17 04:16 Order name: CONS Physician Consult EDMS 10/17 04:17 Order name: CONS Physician Consult EDMS 10/17 01:31 Order name: Cardiac monitoring; Complete Time: 01:57 ec2 10/17 01:31 Order name: EKG - Nurse/Tech; Complete Time: 02:09 ec2 10/17 01:31 Order name: IV Saline Lock; Complete Time: :57 ec2 10/17 01:31 Order name: Labs collected and sent; Complete Time: 01:57 ec2 10/17 01:31 Order name: O2 Per Protocol; Complete Time: :57 ec2 10/17 01:31 Order name: O2 Sat Monitoring; Complete Time: :57 ec2 10/17 01:37 Order name: Accucheck; Complete Time: 01:55 ec2 10/17 01:37 Order name: IV Saline Lock - Large Bore; Complete Time: 01:55 ec2 10/17 01:37 Order name: Vital Signs; Complete Time: 01:55 ec2 Administered Medications: 01:56 Drug: Ibuprofen PO 800 mg PO once Route: PO; km8 04:16 Follow up: Response: No adverse reaction; Temperature is decreased km8 01:57 Drug: NS 0.9% IV 1000 ml IV at 1 bolus Per protocol; 1000 mL bolus Route: IV; Rate: 1 km8 bolus; Site: right antecubital; 03:00 Follow up: IV Status: Completed infusion; IV Intake: 1000ml km8 01:57 Drug: Acetaminophen PO 1000 mg PO once Route: PO; km8 04:16 Follow up: Response: No adverse reaction; Temperature is decreased km8 02:10 Drug: Rocephin IV 1 grams IV at calculated rate once; Given slow IV push per pharmacy km8 instructions Route: IV; Rate: calculated rate; Site: right antecubital; 02:12 Follow up: IV Status: Completed infusion; IV Intake: 10ml km8 02:10 Drug: AZITHromycin IVPB 500 mg IVPB once over 1 hrs; (mix in 250 mL NS) Route: IVPB; km8 Infused Over: 1 hrs; Site: right antecubital; 03:10 Follow up: Response: No adverse reaction; IV Status: Completed infusion; IV Intake: km8 250ml 02:26 Drug: Oseltamivir PO 75 mg PO once Route: PO; km8 04:15 Follow up: Response: No adverse reaction km8 Disposition Summary: 10/17/23 02:22 Hospitalization Ordered Notes: Hospitalization Status: Inpatient Admission ec2 Provider: Mirela Sweet ec2 Condition: Stable ec2 Problem: new ec2 Symptoms: have improved ec2 Bed/Room Type: Standard ec2 Location: Telemetry/MedSurg (Inpatient)(10/17/23 06:50) Room Assignment: 404(10/17/23 07:47) aa5 Diagnosis - Influenza due to identified novel influenza A virus ec2 - Acute respiratory failure with hypoxia ec2 - Acute kidney failure, unspecified ec2 Forms: - Medication Reconciliation Form ec2 - SBAR form ec2 - Leadership Thank You Letter ec2 Critical care time excluding procedures: 02:22 Critical care time: Bedside Care: 30 minutes, Consultation: 5 minutes. Total time: 35 ec2 minutes Signatures: Dispatcher [employer] Layla Santos RN RN aa5 Shannon Cheatham RN RN Arlette Peters Edwin, MD MD ec2 Renay Govea RN RN km8 Corrections: (The following items were deleted from the chart) 01:38 01:37 Patient with history of hypertension arrives today due to concern for cough and ec2 shortness of breath. Patient reports he is experiencing approximately 1 week of symptoms. Patient reports having cough and congestion and difficulty breathing. Patient reports fevers and chills, some nausea without vomiting. Denies any diarrhea symptoms. Patient reports no sick contacts at home. Reports no known underlying pulmonary disease.. ec2 01:38 01:37 Constitutional: GEN: NAD Head: atraumatic Eyes: EOMI Ears: External ears are ec2 normal. CV: Tachycardic LUNGS: no respiratory distress, scattered rales noted ABD: non-distended SKIN: no evidence of rashes MSK: no evidence of trauma NEURO: moves all extremities equally ec2 03:13 02:22 Telemetry/MedSurg (Inpatient) ec2 cg 03:13 02:22 ec2 cg 04:23 04:12 NT PRO-BNP ordered. EDMS EDMS 04:25 04:19 Immunization history: Adult Immunizations unknown, km8 km8 04:38 02:23 ED course: I will admit the patient for hypoxia secondary to influenza A. I ec2 discussed case with the hospitalist, pending admission.. ec2 06:50 03:13 [facility] ER HOLD cg eb 06:50 03:13 ERHOLD- cg eb 07:47 06:50 401 eb aa5
[2023-10-17 02:23] LABS: Potassium 4.4 mEq/L (3.5-5.1)
[2023-10-17] MEDS ORDERED: OSELTAMIVIR 75 MG CAP PO ONE (02:24)
[2023-10-17 02:35] LABS: Troponin High Sensitivity 65.6 pg/mL (<58.9)
[2023-10-17 04:01] LABS: Blood Morphology Comment NOT SEEN (NOT SEEN); Platelet Estimate ADEQ
--- NOTE | 2023-10-17 04:14 | P.HP ---
Certification for Inpatient Patient admitted to: Inpatient With expected LOS: >2 Midnights Patient will require the following post-hospital care: None Practitioner: I am a practitioner with admitting privileges, knowledge of patient current condition, hospital course, and medical plan of care. Services: Services provided to patient in accordance with Admission requirements found in Title 42 Section 412.3 of the Code of Federal Regulations Patient History Date of Service: 10/17/23 Reason for admission: Influenza pneumonia/acute kidney failure/type II myocardial infarction History of Present Illness: Patient is a 47-year-old gentleman who came to the hospital with shortness of breath. Patient has been short of breath for the last 24 hours. Patient states his clinical symptoms have not been improving. Since patient was not getting better he decided to come into the hospital for further evaluation. Patient states he has orthopnea but no PND. His symptoms pretty much started today. He states got a cardiac workup done about a year ago but he does not remember his cardiac status. He also has renal failure. He does not know the degree of his renal insufficiency. Patient follows up with nephrology, Dr. Cooper. His panel installer is Dr. Charles. Patient came into the ER for further evaluation. Patient was started on a nonrebreather. Patient has what appears to be a influenza pneumonia. Patient also with acute renal failure. No baseline creatinine. Will get a renal ultrasound and echocardiogram to further evaluate patient's baseline clinical status. Will order a stat BNP order procalcitonin and ABGs. Patient will be admitted for inpatient hospitalization. Will get his records from [facility] and placed in the chart. Patient may need more extensive renal and cardiac workup at this time. His creatinine is significantly elevated. - Past Medical/Surgical History -: Hypertension -: Type 2 diabetes -: Chronic kidney disease -: Severe obstructive sleep apnea Past Surgical History: Patient denies surgical history - Family History Father Family History: Reviewed- Non-Contributory - Social History Smoking Status: Former smoker (Quit 1 month ago) Alcohol use: No CD- Drugs: No Review of Systems 10-point ROS is otherwise unremarkable Physical Examination - Vital Signs Temperature: 98 F Blood Pressure: 140/80 Pulse: 80 Respirations: 18 Pulse Ox (%): 95 - Physical Exam General: Alert, In no apparent distress, Oriented x3, Obese HEENT: Atraumatic, PERRLA, Mucous membr. moist/pink, EOMI, Sclerae nonicteric Neck: Supple, 2+ carotid pulse no bruit, No LAD, Without JVD or thyroid abnormality Respiratory: Diminished, Expiratory wheezes, Rhonchi/gurgles Cardiovascular: Regular rate/rhythm, Normal S1 S2 Gastrointestinal: Normal bowel sounds, Soft and benign, Non-distended, No tenderness Musculoskeletal: No clubbing, No swelling, No tenderness Integumentary: No rashes Neurological: Normal gait, Normal speech, Normal strength at 5/5 x4 extr, Normal tone, Sensation intact, Cranial nerves 3-12 intact, Normal affect Lymphatics: No axilla or inguinal lymphadenopathy - Studies Laboratory Data (last 24 hrs) 10/17/23 10/17/23 10/17/23 01:45 01:45 01:45 WBC 8.70 Hgb 10.0 L Hct 29.8 L Plt Count 157 PT 13.4 H INR 1.23 APTT 35.1 Sodium 139 Potassium 4.4 BUN 59 H Creatinine 5.90 H Glucose 251 H Microbiology Data (last 24 hrs): 10/17/23 01:40 Nasopharnyx Influenza Type A Antigen Screen - Final 10/17/23 01:40 Nasopharnyx Influenza Type B Antigen Screen - Final Assessment & Plan - Problems (Diagnosis) (1) Acute kidney injury Current Visit: Yes Status: Acute (2) Influenzal pneumonia Current Visit: Yes Status: Acute (3) Acute CHF Current Visit: Yes Status: Acute (4) HTN (hypertension) Current Visit: Yes Status: Acute (5) DM2 (diabetes mellitus, type 2) Current Visit: Yes Status: Acute (6) NSTEMI (non-ST elevated myocardial infarction) Current Visit: Yes Status: Acute (7) KWKAU (obstructive sleep apnea) Current Visit: Yes Status: Acute - Plan Plan: 1. Patient with influenza pneumonia; will start on Tamiflu. Renal dose Tamiflu. Patient home with a history of tobacco use and just quit smoking about a month ago. Will do nebs as needed along with dose of steroids. Will check a procalcitonin level to see if patient has a bacterial component. Patient has been given antibiotics in the emergency room. 2. Patient with acute on chronic renal insufficiency. Patient's prior GFR on the chart was about 50. Currently his GFR is 11. Renal ultrasound done over a year ago did not reveal any significant pathology. I will go ahead and repeat the renal ultrasound and get a nephrology consultation. Renal dose all medications and will hold off on any contrast media at this time. Patient does have elevated troponin and he may need cardiac catheterization. If this is to be done patient will surely need hemodialysis. Will also check a phosphorus level as well as a urine analysis with microscopy. Urine protein creatinine ratio pending as well. 3. Non-STEMI; most likely type II myocardial infarction. Patient not complain of any chest pain. Will start beta-megan therapy. Continue with antiplatelet therapy. Heparin for DVT prophylaxis. Cardiology consultation has been obtained. Recent echocardiogram has been done. Normal ejection fraction at that time. This was done about a year ago. Will go ahead and repeat. If patient needs a cardiac catheterization that we may need to hemodialyzed during the short-term. Nephrology and cardiology have been consulted. Will check a BNP level. Anticipate that this will be elevated. Echocardiogram pending. 4. History of hypertension; continue with antihypertensives. Will do hydralazine and beta-megan therapy at this time. Hold JESSENIA and ARB pending renal workup. 5. History of type 2 diabetes; strict blood sugar control. Monitor his blood sugars and check hemoglobin A1c level. Adjust his oral hypoglycemic agents. No sliding scale at this time as patient will need sliding scale dosed to his renal insufficiency. 6. Patient with history of obstructive sleep apnea. ABGs does not reveal any significant degree of hypercapnia at this time. Patient does have a mild degree of hypoxemia and metabolic acidosis most likely related to his renal insufficiency. Patient's will start on oral bicarb at this time. Continue monitoring acidosis. 7. GI and DVT prophylaxis Discharge Plan: Home Plan to discharge in: Greater than 2 days - Advance Directives Does patient have a Living Will: No Does patient have a Durable POA for Healthcare: No - Code Status/Comfort Care Code Status Assessed: Yes Code Status: Full Code Critical Care: Yes Time Spent Managing PTS Care (In Minutes): 60
[2023-10-17] MEDS ORDERED: METHYLPREDNISOLONE 125 MG INJ IV ONE (04:25)
[2023-10-17] MEDS ORDERED: ALBUTEROL 2.5 MG/3 ML NEB SOL NEB PRN (04:25)
[2023-10-17] MEDS ORDERED: HYDRALAZINE HCL 20 MG/ML VIAL IV PRN (04:25)
[2023-10-17] MEDS ORDERED: ONDANSETRON 4 MG/2 ML VIAL IV PRN (04:25)
[2023-10-17] MEDS ORDERED: IPRATROPIUM BROM 0.5MG/2.5ML NEB PRN (04:25)
[2023-10-17] MEDS ORDERED: ASPIRIN EC 81 MG TAB PO ONE ×2 (04:43→05:46)
[2023-10-17 04:44] LABS: Arterial Blood Carboxyhemoglob 0.8 % (0-1.5); Blood Gas Oxyhemoglobin 91.2 % (94-97); Blood O2 Saturation 93.7 % (92-98.5)
[2023-10-17] MEDS ORDERED: METOPROLOL TAR 50 MG TAB ONE (05:45)
[2023-10-17] MEDS ORDERED: METHYLPREDNISOLONE 40 MG INJ ONE (05:46)
[2023-10-17] MEDS ORDERED: METOPROLOL TAR 25 MG TAB PO SCH (06:00)
[2023-10-17 06:13] LABS: Albumin 2.6 g/dL (3.4-5.0); Bilirubin Direct 0.1 mg/dL (0-0.2); Bilirubin Indirect, Calculated 0.2 mg/dL (0.2-0.8); Bilirubin Total 0.3 mg/dL (0.2-1.0); Protein, Total 6.7 g/dL (6.4-8.2); Uric Acid 10.3 mg/dL (3.5-7.2)
[2023-10-17 06:18] LABS: Troponin High Sensitivity 134.8 pg/mL (<58.9)
[2023-10-17] MEDS: ASPIRIN EC 81 MG TAB PO SCH (08:35)
[2023-10-17] MEDS: FUROSEMIDE 40 MG/4 ML VIAL IV SCH ×3 (08:42→20:48)
[2023-10-17] MEDS: SODIUM BICARB 325 MG TAB PO SCH ×2 (08:43→20:45)
[2023-10-17] MEDS: HEPARIN 5000 UNIT/ML 1 ML VIAL SQ SCH ×2 (08:43→20:46)
[2023-10-17] MEDS ORDERED: HYDRALAZINE HCL 25 MG TABLET PO SCH (09:00)
--- NOTE | 2023-10-17 09:01 | RAD REPORT ---
EXAM DESCRIPTION: US - Renal Ultrasound-Limited - 10/17/2023 7:23 am CLINICAL HISTORY: Acute renal failure COMPARISON: None. FINDINGS: The right kidney measures 12 cm with an increased echotexture. A 1.4 centimeter cyst The left kidney measures 11 cm with an increased echotexture. Hydronephrosis is not seen. No gross abnormality of bladder is noted IMPRESSION: Increased renal echotexture consistent with parenchymal disease
[2023-10-17] MEDS: OSELTAMIVIR 30 MG CAP PO SCH ×2 (09:34→20:45)
--- NOTE | 2023-10-17 10:00 | P.CNS ---
Date of Consult: 10/17/23 Reason for Consult: GILBERTO/ CKD Requesting Physician: Mirela Sweet Primary Care Provider: Dr. Pruett Chief Complaint: Influenza pneumonia/acute kidney failure/type II myocardial infarction History of Present Illness: Patient is a 47-year-old gentleman who came to the hospital with shortness of breath. Patient has been short of breath for the last 24 hours. Patient states his clinical symptoms have not been improving. Since patient was not getting better he decided to come into the hospital for further evaluation. Patient states he has orthopnea but no PND. His symptoms pretty much started today. He states got a cardiac workup done about a year ago but he does not remember his cardiac status. He also has renal failure. He does not know the degree of his renal insufficiency. Patient follows up with nephrology, Dr. Cooper. His furnace charger is Dr. Charles. Patient came into the ER for further evaluation. Patient was started on a nonrebreather. Patient has what appears to be a influenza pneumonia. Patient also with acute renal failure. No baseline creatinine. Will get a renal ultrasound and echocardiogram to further evaluate patient's baseline clinical status. Will order a stat BNP order procalcitonin and ABGs. Patient will be admitted for inpatient hospitalization. Will get his records from [facility] and placed in the chart. Patient may need more extensive renal and cardiac workup at this time. His creatinine is significantly elevated. juaquin 01:37 This 47 yrs old Male presents to ER via Unassigned with complaints of cough, ec2 sob . 01:37 Patient with history of hypertension arrives today due to concern for cough and ec2 shortness of breath. Patient reports he is experiencing approximately 1 week of symptoms. Patient reports having cough and congestion and difficulty breathing. Patient reports fevers and chills, some nausea without vomiting. Denies any diarrhea symptoms. Patient reports no sick contacts at home. Reports no known underlying pulmonary disease. He is approximately a one third a pack per day smoker.. He was last seen in clinic in November 2022. He has not been evaluated or treated for KWAKU yet. He has been working out of town and just came home for the holidays. He did quit cigarettes. No NSAIDs at home. Allergies No Known Allergies Allergy (Unverified 10/17/23 06:52) Home medications list reviewed: Yes Home Medications: Amlodipine [Norvasc*] 1 tab PO DAILY 10/17/23 Carvedilol [Coreg] 1 tab PO BID 10/17/23 Glimepiride 1 tab PO BID 10/17/23 Hydralazine HCl 1 tab PO Q8H 10/17/23 Losartan Potassium 100 mg PO DAILY 10/17/23 Metformin HCl 1 tab PO BID 10/17/23 Simvastatin 1 tab PO BEDTIME 10/17/23 Terazosin HCl 1 mg PO BEDTIME 10/17/23 - Past Medical/Surgical History Diabetic: Yes -: HTN -: Severe KWAKU not on CPAP -: CKD III with Proteinuria (Dr. Cooper/ Dr. Michele) -: DM II -: HLD - Family History Father Family History: Reviewed- Non-Contributory - Social History Smoking Status: Former smoker Alcohol use: Yes CD- Drugs: No Review of Systems 10-point ROS is otherwise unremarkable General: Weakness, Malaise Respiratory: SOB with Excertion Cardiovascular: Edema Physical Examination Temp Pulse Resp BP Pulse Ox 98.3 F 79 18 189/90 H 90 L 10/17/23 08:00 10/17/23 08:00 10/17/23 08:00 10/17/23 08:00 10/17/23 08:00 General: Alert, Oriented x3, Cooperative, Mild distress HEENT: Atraumatic Neck: Supple Respiratory: Crackles/rales Cardiovascular: Regular rate/rhythm, Edema Gastrointestinal: Soft and benign, Distended Musculoskeletal: No clubbing, No contractures Integumentary: No rashes Neurological: Normal speech Laboratory Data (last 24 hrs) 10/17/23 10/17/23 10/17/23 03:40 01:45 01:45 WBC 8.70 Hgb 10.0 L Hct 29.8 L Plt Count 157 PT 13.4 H INR 1.23 APTT 35.1 Sodium Potassium BUN Creatinine Glucose Uric Acid 10.3 H Total Bilirubin 0.3 AST 29 ALT 21 Alkaline Phosphatase 65 10/17/23 01:45 WBC Hgb Hct Plt Count PT INR APTT Sodium 139 Potassium 4.4 BUN 59 H Creatinine 5.90 H Glucose 251 H Uric Acid Total Bilirubin AST ALT Alkaline Phosphatase Normal CHARLENE, SPEP, UIFE 11-29-22 Imagings Data: darrenrice EXAM DESCRIPTION: US - Renal Ultrasound-Limited - 10/17/2023 7:23 am CLINICAL HISTORY: Acute renal failure COMPARISON: None. FINDINGS: The right kidney measures 12 cm with an increased echotexture. A 1.4 centimeter cyst The left kidney measures 11 cm with an increased echotexture. Hydronephrosis is not seen. No gross abnormality of bladder is noted IMPRESSION: Increased renal echotexture consistent with parenchymal disease Conclusions/Impression: Stage III GILBERTO may be progressive CKD complicated by CRS and Motrin given in the ER for fever CKD IIIa with Proteinuria -No NSAIDs -Continue diuresis Metabolic Acidosis -Agree with oral bicarb HTN with CKD/ CHF -Hydralazine prn -Clonidine prn -Change Coreg to Atenolol -Increase Terazosin -Hold Losartan KWAKU not on home therapy -Continue Bipap Acute respiratory failure CHF, A/C -Echocardiogram pending -Continue Bipap -Continue Lasix -Lasix 80mg X1 now -Metolazone 10mg X1 now DM II with CKD -Start RISS -DC Glimepiride and Metformin Hypoalbuminemia -Consider protein supplementation Anemia in chronic illness -Monitor H&H -Retacrit prn Former Cigarette Smoker Hospitalist and ER notes reviewed Case reviewed with Dr. Lyon Thank you kindly for the consultation Critical Care: Yes (>30min)
--- NOTE | 2023-10-17 11:11 | P.CNS ---
Date of Consult: 10/17/23 Reason for Consult: Shortness of breath Primary Care Provider: Dr. Pruett Chief Complaint: Influenza pneumonia/acute kidney failure/type II myocardial infarction History of Present Illness: Patient is 47 years of age with acute onset of shortness of breath history of obstructive airways disease former 1 pack a week smoker quit about a month ago admitted with presumed congestive heart failure severe renal failure also tested positive for influenza history of sleep apnea CKD/patient sees a cardiology apparently his heart is okay he is in respiratory distress Allergies No Known Allergies Allergy (Unverified 10/17/23 06:52) Home Medications: Amlodipine [Norvasc*] 1 tab PO DAILY 10/17/23 Carvedilol [Coreg] 1 tab PO DAILY 10/17/23 Glimepiride 1 tab PO BID 10/17/23 Hydralazine HCl 1 tab PO Q8H 10/17/23 Losartan Potassium 100 mg PO DAILY 10/17/23 Metformin HCl 1 tab PO BID 10/17/23 Simvastatin 1 tab PO BEDTIME 10/17/23 Terazosin HCl 1 mg PO BEDTIME 10/17/23 - Past Medical/Surgical History -: HTN -: KWAKU, Severe -: CKD (Dr. Cooper/ Dr. Michele) -: DM II -: HLD - Family History Father Family History: Reviewed- Non-Contributory - Social History Alcohol use: Yes CD- Drugs: No Review of Systems 10-point ROS is otherwise unremarkable General: Weakness Respiratory: Cough, Shortness of Breath Physical Examination Temp Pulse Resp BP Pulse Ox 98.3 F 79 18 189/90 H 90 L 10/17/23 08:00 10/17/23 08:00 10/17/23 08:00 10/17/23 08:00 10/17/23 08:00 General: Alert, Moderate distress Respiratory: Expiratory wheezes Cardiovascular: No edema, Regular rate/rhythm, Normal S1 S2 Gastrointestinal: Normal bowel sounds, Soft and benign Laboratory Data (last 24 hrs) 10/17/23 10/17/23 10/17/23 03:40 01:45 01:45 WBC 8.70 Hgb 10.0 L Hct 29.8 L Plt Count 157 PT 13.4 H INR 1.23 APTT 35.1 Sodium Potassium BUN Creatinine Glucose Uric Acid 10.3 H Total Bilirubin 0.3 AST 29 ALT 21 Alkaline Phosphatase 65 10/17/23 01:45 WBC Hgb Hct Plt Count PT INR APTT Sodium 139 Potassium 4.4 BUN 59 H Creatinine 5.90 H Glucose 251 H Uric Acid Total Bilirubin AST ALT Alkaline Phosphatase - Problems (1) Congestive heart failure Current Visit: Yes Status: Acute Plan: Patient is 47 years of age admitted with acute dyspnea suspect he has underlying congestive heart failure chest x-ray shows cardiomegaly with interstitial edema agree with IV Lasix. Patient on BiPAP history of obstructive sleep apnea I suspect he has underlying severe hypertension as he is on multiple drugs ReSound suggestive of chronic renal disease patient also has non-STEMI but I suspect his troponins are may be elevated from his underlying heart failure and renal failure denies any respiratory distress with hypoxemia on continuous BiPAP Qualifiers: Heart failure chronicity: unspecified
[2023-10-17] MEDS ORDERED: HOME MED 1 EA UNK (Hydralazine Hcl [Hydralazine Hcl] 100 MG Tablet) PO SCH (11:15)
[2023-10-17] MEDS: AMLODIPINE 5 MG TAB PO SCH (11:44)
[2023-10-17] MEDS: ACETAMINOPHEN 500 MG TAB PO PRN (11:58)
[2023-10-17] MEDS ORDERED: METOLAZONE 5 MG TABLET PO ONE (11:58)
[2023-10-17] MEDS ORDERED: carvediloL 25 MG TAB PO SCH (12:00)
[2023-10-17] MEDS ORDERED: LOSARTAN POTASSIUM 50 MG TABLET PO SCH (12:00)
[2023-10-17] MEDS ORDERED: atenoloL 25 MG TAB PO ONE (12:04)
[2023-10-17] MEDS ORDERED: D10W 250 ML BAG IV PRN (12:05)
[2023-10-17] MEDS ORDERED: GLUCAGON 1 MG/VIAL IM PRN (12:05)
[2023-10-17] MEDS ORDERED: FUROSEMIDE 40 MG/4 ML VIAL IV ONE (12:11)
[2023-10-17] MEDS: TERAZOSIN HCL 1 MG CAP PO SCH ×2 (12:15→20:46)
[2023-10-17] MEDS ORDERED: cloNIDine HCL 0.1 MG TAB PO PRN (12:56)
[2023-10-17] MEDS: ALBUTEROL 2.5 MG/3 ML NEB SOL NEB SCH ×2 (13:40→18:30)
[2023-10-17] MEDS: IPRATROPIUM BROM 0.5MG/2.5ML NEB SCH ×2 (13:40→18:30)
--- NOTE | 2023-10-17 14:04 | RAD REPORT ---
EXAM DESCRIPTION: RAD - Chest Single View - 10/17/2023 2:06 am CLINICAL HISTORY: The patient is 47 years old and is Male; DYSPNEA TECHNIQUE: Frontal view of the chest. COMPARISON: No relevant prior studies available. FINDINGS: Lungs: Mildly prominent interstitial markings which may indicate interstitial edema. No consolidation. Pleural space: Unremarkable. No pneumothorax. Heart: Unremarkable. Mediastinum: Unremarkable. Normal mediastinal contour. Bones/joints: No acute findings. IMPRESSION: Mildly prominent interstitial markings which may indicate interstitial edema. No consoli dation. Electronically signed by: Rudi Santos MD 10/17/2023 02:37 AM VOCATIONAL EDUCATION PROFESSIONAL Due to temporary technical issues with the PACS/Fluency reporting system, reports are being signed by the in house radiologists without review as a courtesy to insure prompt reporting. The interpreting radiologist is fully responsible for the content of the report.
[2023-10-17] MEDS: HYDRALAZINE HCL 25 MG TABLET PO SCH ×2 (15:58→20:45)
[2023-10-17] MEDS: INSULIN REGULAR (HUMAN) 100 UNIT/ML SQ SCH ×2 (15:58→20:46)
[2023-10-17] MEDS ORDERED: METFORMIN HCL 500 MG TAB PO SCH (17:00)
[2023-10-17] MEDS ORDERED: GLIMEPIRIDE 2 MG TABLET PO SCH (17:00)
[2023-10-17] MEDS ORDERED: LORazepam 2 MG/ML VIAL IV PRN (19:24)
[2023-10-17] MEDS: ATORVASTATIN 10 MG TAB PO SCH (20:45)
[2023-10-17] MEDS: atenoloL 25 MG TAB PO SCH (20:47)
[2023-10-17] MEDS ORDERED: HOME MED 1 EA UNK (Metformin Hcl [Metformin Hcl] 1,000 MG Tablet) PO SCH (21:00)
[2023-10-17] MEDS ORDERED: HOME MED 1 EA UNK (Simvastatin [Simvastatin] 20 MG Tablet) PO SCH (21:00)
[2023-10-17] MEDS ORDERED: TERAZOSIN HCL 1 MG CAP PO SCH (21:00)
[2023-10-17] MEDS ORDERED: ATORVASTATIN 40 MG TAB PO SCH (21:00)
[2023-10-18] MEDS: IPRATROPIUM BROM 0.5MG/2.5ML NEB SCH ×2 (02:38→08:15)
[2023-10-18] MEDS: ALBUTEROL 2.5 MG/3 ML NEB SOL NEB SCH ×2 (02:38→08:15)
[2023-10-18] MEDS: FUROSEMIDE 40 MG/4 ML VIAL IV SCH ×4 (05:00→21:48)
[2023-10-18 07:18] LABS: Absolute Lymphocytes (CBC) 0.4 K/uL (0.7-4.9); Hematocrit 28.9 % (39.6-49.0); Lymphocytes % 3.9 % (15.3-44.8); MCV 89.6 fL (80-100); Platelets 156 thou/uL (152-406); RBC Red Blood Cell Count 3.23 M/uL (4.33-5.43)
[2023-10-18 07:29] LABS: Urine Bacteria None Seen /HPF (<20); Urine Bilirubin NEGATIVE (Negative); Urine Blood 1+ (Negative); Urine Clarity Turbid (Clear); Urine Color Colorless (Yellow); Urine Crystals Unidentified Few /HPF (None Seen); Urine Glucose NEGATIVE (Negative); Urine Mucus Slight /HPF (None Seen); Urine Protein 2+ (Negative); Urine RBC <5 /HPF (None Seen); Urine Urobilinogen Normal (Normal); Urine pH 5.5 (5.0-7.0)
[2023-10-18 07:37] LABS: Albumin 2.4 g/dL (3.4-5.0); Bilirubin Total 0.3 mg/dL (0.2-1.0); Magnesium 1.9 mg/dL (1.6-2.4); Phosphorus 6.4 mg/dL (2.5-4.9); Potassium 4.9 mEq/L (3.5-5.1); Protein, Total 6.5 g/dL (6.4-8.2); Uric Acid 11.8 mg/dL (3.5-7.2)
[2023-10-18 08:28] LABS: UR PROTEIN 216.9 mg/dL (<11.9); Urine Protein/Creatinine Ratio 4.25 ratio (<0.15)
[2023-10-18 08:59] LABS: Hepatitis B Core Ab, Total Nonreactive (Nonreactive); Hepatitis B surface AG Interp. Nonreactive (Nonreactive); Hepatitis C Virus Ab Nonreactive (Nonreactive)
[2023-10-18 09:00] LABS: Hepatitis B Surface Ab - Quant < 3.10 mIU/mL (<8.0)
[2023-10-18] MEDS ORDERED: HOME MED 1 EA UNK (Losartan Potassium [Losartan Potassium] 100 MG Tablet) PO SCH (09:00)
[2023-10-18] MEDS: HEPARIN 5000 UNIT/ML 1 ML VIAL SQ SCH ×2 (09:07→22:18)
[2023-10-18] MEDS: INSULIN REGULAR (HUMAN) 100 UNIT/ML SQ SCH ×4 (09:07→21:47)
[2023-10-18] MEDS: AMLODIPINE 5 MG TAB PO SCH ×2 (09:08→21:46)
[2023-10-18] MEDS: OSELTAMIVIR 30 MG CAP PO SCH ×2 (09:08→21:47)
[2023-10-18] MEDS: ASPIRIN EC 81 MG TAB PO SCH (09:09)
[2023-10-18] MEDS: SODIUM BICARB 325 MG TAB PO SCH ×2 (09:09→21:46)
[2023-10-18] MEDS: HYDRALAZINE HCL 25 MG TABLET PO SCH ×3 (09:09→21:42)
[2023-10-18] MEDS: TERAZOSIN HCL 1 MG CAP PO SCH (09:10)
--- NOTE | 2023-10-18 10:37 | P.PN ---
Date of Service: 10/18/23 Subjective: Feeling better today Breathing is okay - currently on 6L NC; BIPAP overnight Dr. Talavera planning for heart cath today possibly afebrile ROS: 10 point ROS as noted above, otherwise negative Physical Exam: GEN: Alert, oriented, short of breath HEENT: Normal conjunctiva, sclera anicteric, CV: Regular rate and rhythm, no edema Pulm: Nonlabored respirations on 6L NC, +Crackles/rales, mild tachypnea ABD: soft, nontender, nondistended Neuro: Normal speech, normal affect Problem List: NSTEMI acute hypoxemic respiratory failure secondary to CHF exacerbastion, flu pneumonia Acute on chronic diastolic CHF GILBERTO on CKD Influenza Pneumonia Hypertension h/o severe obstructive sleep apnea NIDDM2 NSTEMI Acute on chronic CHF acute hypoxemic respiratory failure secondary to CHF exacerbastion, flu pneumonia Scott chest pain. His radio presenter is Dr. Charles. CXR (10/17): mild interstitial edema troponins elevated, monitor on tele BNP: 2468 on admission Echocardiogram ~1 year ago with normal EF per patient. Echo ordered to eval EF / stenosis Cardiology consulted NPO for possible heart cath today with Dr. Talavera Heparin on hold for Heart cath continue IV lasix GILBERTO on CKD Patient with acute on chronic renal insufficiency. Patient's prior GFR on the chart was about 50. Currently his GFR is 11. Renal ultrasound done over a year ago did not reveal any significant pathology. Renal u/s (10/17): Increased renal echotexture consistent with parenchymal disease. Nephrology consulted - renal dose all medications. Check urinalysis / Urine protein creatinine ratio Creatinine 5.9 -> 7.72 (10/18) Patient would likely benefit from acute HD. General surgery - Dr. Dunn consulted 10/18 for HD cath placement NPO after midnight, for tunneled HD Cath placement tomorrow Influenza Pneumonia Continue tamiflu Procal elevated j pulm consulted PRN nebs Hypertension confirm home meds, restart as appropriate h/o severe obstructive sleep apnea ABGs does not reveal any significant degree of hypercapnia at this time continue oral bicarb at this time. Continue monitoring acidosis. NIDDM2 ACHS accucheck. SSI VTE: given heparin sq 1/2 AM; on hold for heart cath Code: Full Dispo: Home, ~3 days Pending heart cath, ?dialysis setup
--- NOTE | 2023-10-18 12:05 | P.PN ---
Subjective Date of Service: 10/18/23 Primary Care Provider: Dr. Pruett Chief Complaint: CHF A/c Renal failure Subjective: Improving (Doing better is on BiPAP function is worse) Review of Systems General: Weakness Respiratory: Cough, Shortness of Breath Physical Examination - Vital Signs Temperature: 98.8 F Blood Pressure: 140/68 Pulse: 72 Respirations: 17 Pulse Ox (%): 93 - Physical Exam General: Alert, In no apparent distress, Oriented x3 Respiratory: Clear to auscultation bilaterally Cardiovascular: No edema, Regular rate/rhythm Assessment And Plan - Current Problems (Diagnosis) (1) Congestive heart failure Current Visit: Yes Status: Acute Plan: Patient admitted with congestive heart failure and end-stage renal disease renal function is worse probably had a non-STEMI on BiPAP doing much better oxygenation satisfactory blood pressure is controlled Qualifiers: Heart failure chronicity: unspecified
[2023-10-18] MEDS: ALBUTEROL 2.5 MG/3 ML NEB SOL NEB PRN (14:18)
[2023-10-18] MEDS: ACETAMINOPHEN 500 MG TAB PO PRN (16:40)
--- NOTE | 2023-10-18 19:47 | P.PN ---
Date of Service: 10/18/23 Vital Signs Temp Pulse Resp BP Pulse Ox 98.8 F 86 17 166/74 H 93 10/18/23 17:40 10/18/23 16:00 10/18/23 16:00 10/18/23 16:00 10/18/23 16:00 Medications Acetaminophen (Acetaminophen 500 Mg Tab) 500 mg PO Q4HP PRN PRN Reason: pain/fever Last Admin: 10/18/23 16:40 Dose: 500 mg Albuterol Sulfate (Albuterol 2.5 Mg/3 Ml Neb Kajal) 2.5 mg NEB [id number] PRN PRN Reason: SHORTNESS OF BREATH Last Admin: 10/18/23 14:18 Dose: 2.5 mg Amlodipine Besylate (Amlodipine 5 Mg Tab) 5 mg PO DAILY [facility] Last Admin: 10/18/23 09:08 Dose: 5 mg Aspirin (Aspirin Ec 81 Mg Tab) 162 mg PO DAILY [facility] Last Admin: 10/18/23 09:09 Dose: 162 mg Atenolol (Atenolol 25 Mg Tab) 25 mg PO BEDTIME [facility] Last Admin: 10/17/23 20:47 Dose: 25 mg Atorvastatin Calcium (Atorvastatin 10 Mg Tab) 10 mg PO BEDTIME [facility] Last Admin: 10/17/23 20:45 Dose: 10 mg Clonidine HCl (Clonidine Hcl 0.1 Mg Tab) 0.1 mg PO Q6H PRN PRN Reason: SBP GREATER THAN 170 Dextrose (D10w 250 Ml Bag) 125 ml IV PRN PRN PRN Reason: HYPOGLYCEMIA Furosemide (Furosemide 40 Mg/4 Ml Vial) 40 mg IV Q6H [facility] Last Admin: 10/18/23 16:40 Dose: 40 mg Glucagon (Glucagon 1 Mg/Vial) 1 mg IM 1X PRN PRN Reason: HYPOGLYCEMIA Heparin Sodium (Porcine) (Heparin 5000 Unit/Ml 1 Ml Vial) 5,000 unit SQ Q12HR [facility] Last Admin: 10/18/23 09:07 Dose: 5,000 unit Hydralazine HCl (Hydralazine Hcl 20 Mg/Ml Vial) 10 mg IV Q4HP PRN PRN Reason: Goal to achieve SBP in comment Last Admin: 10/17/23 11:21 Dose: 10 mg Hydralazine HCl (Hydralazine Hcl 25 Mg Tablet) 100 mg PO TID [facility] Last Admin: 10/18/23 14:12 Dose: 100 mg Insulin Human Regular (Insulin Regular (Human) 100 Unit/Ml) 0 unit SQ ACHS [facility]; Protocol Last Admin: 10/18/23 16:30 Dose: Not Given Lorazepam (Lorazepam 2 Mg/Ml Vial) 1 mg IV Q6H PRN PRN Reason: ANXIETY Last Admin: 10/17/23 20:48 Dose: 1 mg Ondansetron HCl (Ondansetron 4 Mg/2 Ml Vial) 4 mg IV Q6HP PRN PRN Reason: NAUSEA / VOMITING Oseltamivir Phosphate (Oseltamivir 30 Mg Cap) 30 mg PO BID [facility] Last Admin: 10/18/23 09:08 Dose: 30 mg Sodium Bicarbonate (Sodium Bicarb 325 Mg Tab) 650 mg PO BID [facility] Last Admin: 10/18/23 09:09 Dose: 650 mg Terazosin HCl (Terazosin Hcl 1 Mg Cap) 2 mg PO BID [facility] Last Admin: 10/18/23 09:10 Dose: 2 mg Microbiology Results 10/17/23 02:10 Blood - Blood Aerobic Blood Culture - Preliminary No growth in 24 hours. 10/17/23 02:10 Blood - Blood Anaerobic Blood Culture - Preliminary No growth in 24 hours. 10/17/23 01:45 Blood - Blood Aerobic Blood Culture - Preliminary No growth in 24 hours. 10/17/23 01:45 Blood - Blood Anaerobic Blood Culture - Preliminary No growth in 24 hours. 10/17/23 01:40 Nasopharnyx Influenza Type A Antigen Screen - Final 10/17/23 01:40 Nasopharnyx Influenza Type B Antigen Screen - Final Assessment/ Plan: Nephrology Feeling better Dyspnea improved No chest pain No acute events overnight Vitals, medications, blood work and imaging reviewed in the chart General: Alert, Oriented x3, Cooperative, Mild distress HEENT: Atraumatic Neck: Supple Respiratory: Crackles/rales Cardiovascular: Regular rate/rhythm, Edema Gastrointestinal: Soft and benign, Distended Musculoskeletal: No clubbing, No contractures Integumentary: No rashes Neurological: Normal speech Laboratory Data (last 24 hrs) 10/17/23 10/17/23 10/17/23 03:40 01:45 01:45 WBC 8.70 Hgb 10.0 L Hct 29.8 L Plt Count 157 PT 13.4 H INR 1.23 APTT 35.1 Sodium Potassium BUN Creatinine Glucose Uric Acid 10.3 H Total Bilirubin 0.3 AST 29 ALT 21 Alkaline Phosphatase 65 10/17/23 01:45 WBC Hgb Hct Plt Count PT INR APTT Sodium 139 Potassium 4.4 BUN 59 H Creatinine 5.90 H Glucose 251 H Uric Acid Total Bilirubin AST ALT Alkaline Phosphatase Normal CHARLENE, SPEP, UIFE 11-29-22 Imagings Data: darrenrice EXAM DESCRIPTION: US - Renal Ultrasound-Limited - 10/17/2023 7:23 am CLINICAL HISTORY: Acute renal failure COMPARISON: None. FINDINGS: The right kidney measures 12 cm with an increased echotexture. A 1.4 centimeter cyst The left kidney measures 11 cm with an increased echotexture. Hydronephrosis is not seen. No gross abnormality of bladder is noted IMPRESSION: Increased renal echotexture consistent with parenchymal disease Conclusions/Impression: Stage III GILBERTO may be progressive CKD complicated by CRS and Motrin given in the ER for fever CKD IIIa with Proteinuria -No NSAIDs -Continue diuresis -Surgery consulted for tunneled HD CVC -HBV negative Metabolic Acidosis -Continue oral bicarb HTN with CKD/ CHF -Hydralazine prn -Clonidine prn -Increase Amlodipine -Continue Atenolol -Increase Terazosin KWAKU not on home therapy -Continue Bipap prn Acute respiratory failure CHF, A/C -Echocardiogram pending -Continue Bipap -Continue Lasix -Metolazone 10mg X1 in the am DM II with CKD -Continue RISS Hypoalbuminemia -Consider protein supplementation Anemia in chronic illness -Monitor H&H -Retacrit prn CKD MBD -Start Phoslo -Start Ergo and Calcitriol Former Cigarette Smoker -Maintain cessation Case reviewed with Dr. Palmer
[2023-10-18] MEDS ORDERED: MANNITOL 25% 12.5 GM/50 ML VIAL IV PRN (19:52)
[2023-10-18] MEDS ORDERED: NA CHLORIDE 0.9% 1,000 ML IV PRN (19:52)
[2023-10-18] MEDS ORDERED: ALBUMIN HUMAN 25% 50 ML IV SCH (20:00)
[2023-10-18] MEDS: DOCUSATE NA 100 MG CAP PO SCH (21:43)
[2023-10-18] MEDS: atenoloL 25 MG TAB PO SCH (21:43)
[2023-10-18] MEDS: CALCIUM ACETATE 667 MG TAB PO SCH (21:43)
[2023-10-18] MEDS: ATORVASTATIN 10 MG TAB PO SCH (21:44)
[2023-10-18] MEDS: TERAZOSIN HCL 5 MG CAP PO SCH (21:47)
[2023-10-19] MEDS: FUROSEMIDE 40 MG/4 ML VIAL IV SCH ×4 (04:00→21:27)
[2023-10-19] MEDS ORDERED: METOLAZONE 5 MG TABLET PO ONE (06:00)
[2023-10-19 06:47] LABS: Hematocrit 28.6 % (39.6-49.0); MCV 87.6 fL (80-100); MPV 8.7 fL (7.6-11.3); Platelets 177 thou/uL (152-406); RBC Red Blood Cell Count 3.26 M/uL (4.33-5.43)
[2023-10-19 07:05] LABS: Magnesium 1.8 mg/dL (1.6-2.4); Phosphorus 6.8 mg/dL (2.5-4.9)
--- NOTE | 2023-10-19 07:10 | ECHO ---
HEIGHT: 5 ft 7 in WEIGHT: 242 lb 0 oz DATE OF STUDY: 10/18/[address]: Mirela Sweet MD 2-DIMENSIONAL: YES M.MODE: YES DOPPLER: YES COLOR FLOW: YES TDS: NO PORTABLE: YES DEFINITY: NO BUBBLE STUDY: NO DIAGNOSIS: CONGESTIVE HEART FAILURE, NSTEMI CARDIAC HISTORY: CATHERIZATION: NO SURGERY: NO PROSTHETIC VALVE: NO PACEMAKER: NO MEASUREMENTS (cm) DIASTOLIC (NORMALS) SYSTOLIC (NORMALS) IVSd 1.6 (0.6-1.2) LA Diam 3.5 (1.9-4.0) LVEF 53% LVIDd 4.8 (3.5-5.7) LVIDs 3.5 (2.0-3.5) %FS 27% LVPWd 1.5 (0.6-1.2) Ao Diam 2.5 (2.0-3.7) 2 DIMENSIONAL ASSESSMENT: RIGHT ATRIUM: NORMAL LEFT ATRIUM: NORMAL RIGHT VENTRICLE: NORMAL LEFT VENTRICLE: LEFT VENTRICULAR HYPERTROPHY TRICUSPID VALVE: MILD TRICUSPID REGURGITION MITRAL VALVE: MILD MITRAL REGURGITATION PULMONIC VALVE: NORMAL AORTIC VALVE: NORMAL PERICARDIAL EFFUSION: NONE AORTIC ROOT: NORMAL LEFT VENTRICULAR WALL MOTION: NORMAL DOPPLER/COLOR FLOW: MILD MITRAL REGURGITATION. COMMENTS: 1. NORMAL LEFT VENTRICULAR EJECTION FRACTION 55-60% AND NORMAL WALL MOTION. 2. NORMAL DIASTOLIC FUNCTION. 3. MILD CONCENTRIC LEFT VENTRICULAR HYPERTROPHY. 4. MILD MITRAL REGURGITATION. TECHNOLOGIST: [employer]ed [employer]
[2023-10-19] MEDS: INSULIN REGULAR (HUMAN) 100 UNIT/ML SQ SCH ×4 (07:30→21:26)
[2023-10-19] MEDS ORDERED: NA CHLORIDE 0.9% 500 ML ONE (07:42)
[2023-10-19] MEDS: CALCIUM ACETATE 667 MG TAB PO SCH ×3 (08:00→16:49)
[2023-10-19] MEDS ORDERED: LIDOCAINE 1% MPF 5 ML VIAL ONE (08:28)
[2023-10-19] MEDS ORDERED: FENTANYL CITR 100 MCG/2 ML ONE ×2 (08:29→10:31)
[2023-10-19] MEDS ORDERED: propofoL 200 MG/20 ML VIAL IV ONE (08:29)
[2023-10-19] MEDS: HEPARIN 5000 UNIT/ML 1 ML VIAL ONE ×4 (08:35→09:57)
[2023-10-19] MEDS ORDERED: HEPARIN 5000 UNIT/ML 1 ML VIAL ONE (08:36)
[2023-10-19] MEDS ORDERED: NA CHLORIDE 0.9% 100 ML ONE (08:37)
[2023-10-19] MEDS ORDERED: CEFAZOLIN SODIUM 1 GM/VIAL ONE (08:42)
[2023-10-19] MEDS: HYDRALAZINE HCL 25 MG TABLET PO SCH ×3 (08:47→21:25)
[2023-10-19] MEDS: DOCUSATE NA 100 MG CAP PO SCH ×2 (08:47→21:25)
[2023-10-19] MEDS: AMLODIPINE 5 MG TAB PO SCH ×2 (08:48→21:26)
[2023-10-19] MEDS: SODIUM BICARB 325 MG TAB PO SCH ×2 (08:48→21:26)
[2023-10-19] MEDS: CALCITROL 0.25 MCG CAP PO SCH (08:48)
[2023-10-19] MEDS: DRISDOL (VITAMIN D=ERGOCALCIFEROL) 50000 UNIT CAP PO SCH (08:48)
[2023-10-19] MEDS: TERAZOSIN HCL 5 MG CAP PO SCH ×2 (08:48→21:26)
[2023-10-19] MEDS: OSELTAMIVIR 30 MG CAP PO SCH (08:48)
[2023-10-19] MEDS ORDERED: MIDAZOLAM HCL 2 MG/2 ML INJ ONE (08:49)
[2023-10-19] MEDS ORDERED: ONDANSETRON 4 MG/2 ML VIAL ONE (09:11)
[2023-10-19] MEDS ORDERED: Phenylephrine HCl 10 MG/ML 1 ML VIAL ONE (09:31)
--- NOTE | 2023-10-19 09:39 | CON ---
Date of Consultation: 10/19/2023 Reason For Service: Placement of hemodialysis catheter. History Of Present Illness: This is the case of a 47-year-old patient, who came with multiple medica l problems including short of breath. The patient has been having workup of lungs and cardiac and al so renal and as of last night and this morning, it was decided that the patient need hemodialysis fir and I was consulted for placement of hemodialysis catheter. The patient is still on the workup fo r lungs, kidneys, and cardiac. He is supposed to have a cardiac cath, but they want to do the hemodi alysis first, so I was consulted. Past Medical History: Hypertension, diabetes, severe obstructive sleep apnea, chronic kidney disease . Past Surgical History: None. Family History: Noncontributory. Social History: The patient used to smoke, quit a month ago. Does not drink alcohol. Allergies: NONE. Review of Systems: At this moment, he does not have shortness of breath, chest pain, or abdominal pain. Physical Examination: General: The patient is awake, alert. HEENT: Pupils are equal and reactive. Anicteric. Neck: Supple. Chest: Clear. Heart: S1, S2. Abdomen: Soft and depressible. No guarding or rebound. No peritoneal signs. Extremities: Good capillary refill. Laboratory Data: Blood work shows WBC count of 6.7, hemoglobin of 9.8, platelets of 177, potassium i s 4.0, creatinine is 9.03, BUN is 92, INR is 1.23. Assessment: This is a 47-year-old patient, in need for immediate hemodialysis. I was consulted to ajit skinner a tunneled catheter by the Renal Service and Dr. Talavera and Dr. Cooper has been working on this patient too from the cardiac and medical standpoint and renal standpoint. The patient understood th e benefits, alternatives, and risks, which include, but not limited to infection, bleeding, damage to adjacent structures, anesthesia complication, pneumothorax, hemothorax, DVTs, heart attack, stroke, [place], and even . He also understands this may not relieve his symptoms. He might need more than one surgical intervention. He understands the risks of pneumothorax and hemothorax too. He understa nds also this is a temporary catheter as soon as possible should be removed whenever we see the Renal Service is not need it anymore. If he is going to be on chronic hemodialysis, then he is going to n eed peripheral access. He understands that part. He understands also he has a large bowling, so we ar e going to have to shave all that area to be able to put the catheter in safely in a sterile fashion. He understand and did agree. ADELA/MORENA Voice ID: [id number] Report ID: [id number]
--- NOTE | 2023-10-19 10:12 | P.BOP ---
Preoperative diagnosis: ESRD Postoperative diagnosis: same Primary procedure: 1. Placement of cuffed tunneled hemodialysis catheter Secondary procedure: 2. interpretation of fluoroscopy Other procedure(s): 3. right neck ultrasound Estimated blood loss: <10cc Specimen: none Findings: compressible jugular Anesthesia: General Complications: None Implants: hemosplit HD catheter Transferred to: Recovery Room Condition: Good
[2023-10-19] MEDS ORDERED: MORPHINE 2 MG/ML SYR IV PRN (10:17)
--- NOTE | 2023-10-19 11:24 | OP ---
Date of Procedure: 10/19/2023 Surgeon: Jerome Dunn MD Preoperative Diagnosis: End-stage renal disease. Postoperative Diagnosis: End-stage renal disease. Procedures: 1.Placement of a cuffed tunneled hemodialysis catheter in the right internal jugular vein. 2.Interpretation of fluoroscopy. 3.Right neck ultrasound. Estimated Blood Loss: Less than 10 cc. Specimen: None. Findings: Compressible jugular. Anesthesia: General plus local. Implant: 24 HemoSplit hemodialysis catheter. Indications: This is a case of a 47-year-old patient, asked for urgent placement of a hemodialysis c atheter. The benefits, alternatives, and risks were explained to the patient, which include, but not limited to infection, bleeding, damage to adjacent structures, anesthesia complication, pneumothorax , hemothorax, DVTs, PEs, endocarditis, [place], and even . He also understands this may not relieve any symptoms. He might need more than one surgical intervention. He understood and signed a consent . He also explained the importance of removing this catheter as soon as the Renal Service is not usi ng anymore. He signed a consent. Description Of Procedure: The patient was brought to the operating room and placed in supine positio n. Anesthesia was done without complication. Right neck and chest were prepped and draped in steril e fashion. A time-out was called. Right neck ultrasound was done to localize the right internal jug ular vein. The area was prepped and draped in a sterile fashion. Ultrasound once again to confirm p lacement of the catheter in the right internal jugular vein and also used to make sure the vein is vi able. An 18-gauge needle was placed in the right internal jugular vein at the first attempt with the patient in Trendelenburg position. The guidewire was passed through and got into superior vena cava using fluoroscopy. Needle was removed. A small incision was made in that area. A small incision w as made also in the right upper chest and we tunneled a HemoSplit hemodialysis catheter underneath th e subcutaneous tissue to meet that incision in the right neck region. Serial dilators were placed un nuvia fluoroscopy guidance through the guidewire until we have an introducer sheath. The introducer sh eath was placed in. A guidewire was removed. The catheter was placed in. Introducer sheath was pee led off. Excellent backflow and inflow. The line was secured in place with 3-0 nylon and the subcut aneous tissue closed with 3-0 chromic and flushed with heparinized solution. The patient brought kerri k from Trendelenburg position to normal position. No bleeding. The patient tolerated the procedure well. The patient was sent to Recovery in stable condition. ADELA/MORENA Voice ID: [id number] Report ID: [id number]
--- NOTE | 2023-10-19 11:25 | RAD REPORT ---
EXAM DESCRIPTION: RADChest Single View10/19/2023 10:33 am CLINICAL HISTORY: s/p HD cath placement COMPARISON: Chest Single View dated 10/17/2023 TECHNIQUE: Portable AP view of the chest. FINDINGS: IJ hemodialysis catheter with staggered tip, distal tip projects over the distal SVC. The lungs show no focal consolidation. Progressive pattern of perihilar fluffy opacities and interstitial central prominence more pronounced on the right. No pneumothorax or effusion. The cardiomediastinal contours are unremarkable. IMPRESSION: Right IJ hemodialysis catheter as above. Findings suggestive of pulmonary edema.
--- NOTE | 2023-10-19 11:50 | P.PN ---
Date of Service: 10/19/23 Subjective: Intermittent fever yesterday / today s/p temp HD cath placement today with Dr. Dunn Tolerating 6L NC ROS: 10 point ROS as noted above, otherwise negative Physical Exam: GEN: Alert, oriented, short of breath HEENT: Normal conjunctiva, sclera anicteric CV: Regular rate and rhythm, no edema Pulm: Nonlabored respirations on 6L NC, +Crackles/rales, mild tachypnea ABD: soft, nontender, nondistended Neuro: Normal speech, normal affect Problem List: NSTEMI acute hypoxemic respiratory failure secondary to CHF exacerbation, flu pneumonia Acute on chronic diastolic CHF GILBERTO on CKD Influenza Pneumonia Hypertension h/o severe obstructive sleep apnea NIDDM2 NSTEMI Acute on chronic CHF acute hypoxemic respiratory failure secondary to CHF exacerbation, flu pneumonia Scott chest pain. His manuscripts curator is Dr. Charles. CXR (10/17): mild interstitial edema CXR (10/19): pulm edema troponins elevated, monitor on tele BNP: 2468 on admission Echo ~1 year ago with normal EF per patient. Echo (10/18/23): 53% EF, normal diastolic function, mild concentric LVH, mild MR Cardiology consulted Heart cath canceled 10/18 Heparin on hold for Heart cath continue IV lasix GILBERTO on CKD Patient with acute on chronic renal insufficiency. Patient's prior GFR on the chart was about 50. Currently his GFR is 11. Renal ultrasound done over a year ago did not reveal any significant pathology. Renal u/s (10/17): Increased renal echotexture consistent with parenchymal disease. Nephrology consulted - renal dose all medications. Check urinalysis / Urine protein creatinine ratio Creatinine 7.72 -> 9 (10/19) General surgery - Dr. Dunn consulted 10/18 for HD cath placement s/p tunneled HD cath placement today 10/19 acute HD per nephrology - first HD likely today Influenza Pneumonia Continue tamiflu pulm consulted PRN nebs Hypertension confirm home meds, restart as appropriate h/o severe obstructive sleep apnea ABGs does not reveal any significant degree of hypercapnia at this time continue oral bicarb at this time. Continue monitoring acidosis. NIDDM2 ACHS accucheck. SSI VTE: heparin sq Code: Full Dispo: Home, ~3 days Pending HD cath placement / acute HD, afebrile > 24 hours, ?heart cath
--- NOTE | 2023-10-19 14:08 | RAD REPORT ---
EXAM DESCRIPTION: RAD - Fluoroscopy <1 Hour - 10/19/2023 10:11 am CLINICAL HISTORY: HD CATH COMPARISON: None available. FINDINGS: Four Images were sent to PACS, documenting fluoroscopy utilization during a hemodialysis c atheter placement procedure. No radiologist was available for the procedure, nor will any image inter pretation he provided. Please refer to the procedural report for additional details. Fluoroscopy time: 0.6 Minutes. IMPRESSION: Documentation of fluoroscopy utilization as above.
--- NOTE | 2023-10-19 15:12 | P.PN ---
Date of Service: 10/19/23 Vital Signs Temp Pulse Resp BP Pulse Ox 98.9 F 70 17 130/60 95 10/19/23 12:37 10/19/23 14:18 10/19/23 12:37 10/19/23 12:37 10/19/23 14:18 Medications Acetaminophen (Acetaminophen 500 Mg Tab) 500 mg PO Q4HP PRN PRN Reason: pain/fever Last Admin: 10/18/23 16:40 Dose: 500 mg Albuterol Sulfate (Albuterol 2.5 Mg/3 Ml Neb Kajal) 2.5 mg NEB [id number] PRN PRN Reason: SHORTNESS OF BREATH Last Admin: 10/18/23 14:18 Dose: 2.5 mg Amlodipine Besylate (Amlodipine 5 Mg Tab) 5 mg PO BID [facility] Last Admin: 10/19/23 08:48 Dose: Not Given Atenolol (Atenolol 25 Mg Tab) 25 mg PO BEDTIME [facility] Last Admin: 10/18/23 21:43 Dose: 25 mg Atorvastatin Calcium (Atorvastatin 10 Mg Tab) 10 mg PO BEDTIME [facility] Last Admin: 10/18/23 21:44 Dose: 10 mg Calcitriol (Calcitrol 0.25 Mcg Cap) 0.5 mcg PO DAILY [facility] Last Admin: 10/19/23 08:48 Dose: Not Given Calcium Acetate (Calcium Acetate 667 Mg Tab) 667 mg PO TIDWM [facility] Last Admin: 10/19/23 11:55 Dose: Not Given Clonidine HCl (Clonidine Hcl 0.1 Mg Tab) 0.1 mg PO Q6H PRN PRN Reason: SBP GREATER THAN 170 Dextrose (D10w 250 Ml Bag) 125 ml IV PRN PRN PRN Reason: HYPOGLYCEMIA Docusate Sodium (Docusate Na 100 Mg Cap) 100 mg PO BID [facility] Last Admin: 10/19/23 08:47 Dose: Not Given Epoetin Liam (Epoetin Liam 10,000 Unit/Ml Vial) 10,000 unit IV EVERY HD [facility] Ergocalciferol (Drisdol (Vitamin D=Ergocalciferol) 27331 Unit Cap) 50,000 unit PO Q48H [facility] Stop: 10/21/23 09:01 Last Admin: 10/19/23 08:48 Dose: Not Given Furosemide (Furosemide 40 Mg/4 Ml Vial) 40 mg IV Q6H [facility] Last Admin: 10/19/23 13:48 Dose: Not Given Glucagon (Glucagon 1 Mg/Vial) 1 mg IM 1X PRN PRN Reason: HYPOGLYCEMIA Heparin Sodium (Porcine) (Heparin 1,000 Unit/Ml Vial) 6,000 unit IV EVERY HD PRN PRN Reason: AFTER EACH Last Admin: 10/19/23 09:57 Dose: 6,000 unit Hydralazine HCl (Hydralazine Hcl 20 Mg/Ml Vial) 10 mg IV Q4HP PRN PRN Reason: Goal to achieve SBP in comment Last Admin: 10/17/23 11:21 Dose: 10 mg Hydralazine HCl (Hydralazine Hcl 25 Mg Tablet) 100 mg PO TID [facility] Last Admin: 10/19/23 13:48 Dose: Not Given Albumin Human (Albumin 25%) 50 mls @ 100 mls/hr IV EVERY HD [facility] Insulin Human Regular (Insulin Regular (Human) 100 Unit/Ml) 0 unit SQ ACHS [facility]; Protocol Last Admin: 10/19/23 11:30 Dose: Not Given Lorazepam (Lorazepam 2 Mg/Ml Vial) 1 mg IV Q6H PRN PRN Reason: ANXIETY Last Admin: 10/17/23 20:48 Dose: 1 mg Mannitol (Mannitol 25% 12.5 Gm/50 Ml Vial) 12.5 gm IV EVERY HD PRN PRN Reason: Titrate to SBP (MUST DEFINE) Morphine Sulfate (Morphine 2 Mg/Ml Syr) 2 mg IV Q6H PRN PRN Reason: Pain scale 8-10 (Severe) Ondansetron HCl (Ondansetron 4 Mg/2 Ml Vial) 4 mg IV Q6HP PRN PRN Reason: NAUSEA / VOMITING Oseltamivir Phosphate (Oseltamivir 30 Mg Cap) 30 mg PO BID [facility] Last Admin: 10/19/23 08:48 Dose: Not Given Sodium Bicarbonate (Sodium Bicarb 325 Mg Tab) 650 mg PO BID [facility] Last Admin: 10/19/23 08:48 Dose: Not Given Terazosin HCl (Terazosin Hcl 5 Mg Cap) 5 mg PO BID [facility] Last Admin: 10/19/23 08:48 Dose: Not Given Tramadol/Acetaminophen (Tramadol 37.5mg/Apap 325mg Per Tab) 1 tab PO Q6H PRN PRN Reason: Pain scale 5-7 (Moderate) Microbiology Results 10/17/23 02:10 Blood - Blood Aerobic Blood Culture - Preliminary No growth in 24 hours. 10/17/23 02:10 Blood - Blood Anaerobic Blood Culture - Preliminary No growth in 24 hours. 10/17/23 01:45 Blood - Blood Aerobic Blood Culture - Preliminary No growth in 24 hours. 10/17/23 01:45 Blood - Blood Anaerobic Blood Culture - Preliminary No growth in 24 hours. 10/17/23 01:40 Nasopharnyx Influenza Type A Antigen Screen - Final 10/17/23 01:40 Nasopharnyx Influenza Type B Antigen Screen - Final Assessment/ Plan: Nephrology Feeling better No dyspnea. HERRERA No chest pain No acute events overnight Vitals, medications, blood work and imaging reviewed in the chart General: Alert, Oriented x3, Cooperative, Mild distress HEENT: Atraumatic Neck: Supple Respiratory: Crackles/rales Cardiovascular: Regular rate/rhythm, Edema Gastrointestinal: Soft and benign, Distended Musculoskeletal: No clubbing, No contractures Integumentary: No rashes Neurological: Normal speech Laboratory Data (last 24 hrs) 10/17/23 10/17/23 10/17/23 03:40 01:45 01:45 WBC 8.70 Hgb 10.0 L Hct 29.8 L Plt Count 157 PT 13.4 H INR 1.23 APTT 35.1 Sodium Potassium BUN Creatinine Glucose Uric Acid 10.3 H Total Bilirubin 0.3 AST 29 ALT 21 Alkaline Phosphatase 65 10/17/23 01:45 WBC Hgb Hct Plt Count PT INR APTT Sodium 139 Potassium 4.4 BUN 59 H Creatinine 5.90 H Glucose 251 H Uric Acid Total Bilirubin AST ALT Alkaline Phosphatase Normal CHARLENE, SPEP, UIFE 11-29-22 Imagings Data: darrenrice EXAM DESCRIPTION: US - Renal Ultrasound-Limited - 10/17/2023 7:23 am CLINICAL HISTORY: Acute renal failure COMPARISON: None. FINDINGS: The right kidney measures 12 cm with an increased echotexture. A 1.4 centimeter cyst The left kidney measures 11 cm with an increased echotexture. Hydronephrosis is not seen. No gross abnormality of bladder is noted IMPRESSION: Increased renal echotexture consistent with parenchymal disease LEFT VENTRICULAR WALL MOTION: NORMAL DOPPLER/COLOR FLOW: MILD MITRAL REGURGITATION. COMMENTS: 1. NORMAL LEFT VENTRICULAR EJECTION FRACTION 55-60% AND NORMAL WALL MOTION. 2. NORMAL DIASTOLIC FUNCTION. 3. MILD CONCENTRIC LEFT VENTRICULAR HYPERTROPHY. 4. MILD MITRAL REGURGITATION. Conclusions/Impression: Stage III GILBERTO may be progressive CKD complicated by CRS and Motrin given in the ER for fever CKD IIIa with Proteinuria -No NSAIDs -Continue diuresis -Surgery placed tunneled HD CVC 10-19-23 -HD initiated 10-19-23 -HBV negative Metabolic Acidosis -Continue oral bicarb HTN with CKD/ CHF -Hydralazine prn -Clonidine prn -Continue Amlodipine -Continue Atenolol -Continue Terazosin KWAKU not on home therapy -Continue Bipap prn Acute respiratory failure Diastolic CHF, A/C LVH -Echocardiogram reviewed -Continue Bipap -Continue Lasix DM II with CKD -Continue RISS Hypoalbuminemia -Consider protein supplementation Anemia in chronic illness -Monitor H&H -Retacrit prn CKD MBD -Continue Phoslo -Continue Ergo and Calcitriol Former Cigarette Smoker -Maintain cessation
[2023-10-19] MEDS: EPOETIN ALFA 10,000 UNIT/ML VIAL IV SCH (18:00)
[2023-10-19] MEDS: ACETAMINOPHEN 500 MG TAB PO PRN (19:19)
[2023-10-19] MEDS: atenoloL 25 MG TAB PO SCH (21:25)
[2023-10-19] MEDS: ATORVASTATIN 10 MG TAB PO SCH (21:25)
[2023-10-19] MEDS: TRAMADOL 37.5mg/APAP 325mg PER TAB PO PRN (21:36)
[2023-10-20] MEDS: ACETAMINOPHEN 500 MG TAB PO PRN ×4 (02:45→20:32)
[2023-10-20] MEDS: FUROSEMIDE 40 MG/4 ML VIAL IV SCH ×2 (04:00→09:22)
[2023-10-20] MEDS: INSULIN REGULAR (HUMAN) 100 UNIT/ML SQ SCH ×4 (07:30→20:31)
[2023-10-20 08:35] LABS: Hematocrit 27.1 % (39.6-49.0); MCV 87.8 fL (80-100); MPV 8.2 fL (7.6-11.3); Platelets 168 thou/uL (152-406); RBC Red Blood Cell Count 3.08 M/uL (4.33-5.43)
[2023-10-20 08:59] LABS: Albumin 2.1 g/dL (3.4-5.0); Bilirubin Total 0.3 mg/dL (0.2-1.0); Potassium 3.9 mEq/L (3.5-5.1); Protein, Total 5.9 g/dL (6.4-8.2)
[2023-10-20] MEDS: CALCITROL 0.25 MCG CAP PO SCH (09:14)
[2023-10-20] MEDS: SODIUM BICARB 325 MG TAB PO SCH (09:14)
[2023-10-20] MEDS: HYDRALAZINE HCL 25 MG TABLET PO SCH (09:15)
[2023-10-20] MEDS: DOCUSATE NA 100 MG CAP PO SCH ×2 (09:15→21:00)
[2023-10-20] MEDS: AMLODIPINE 5 MG TAB PO SCH ×2 (09:15→20:33)
[2023-10-20] MEDS: CALCIUM ACETATE 667 MG TAB PO SCH ×3 (09:15→16:35)
[2023-10-20] MEDS: TERAZOSIN HCL 5 MG CAP PO SCH ×2 (09:16→20:32)
--- NOTE | 2023-10-20 10:36 | P.PN ---
Date of Service: 10/20/23 Subjective: Febrile overnight, +continues with low grade temps this morning Tolerated first acute HD yesterday down to 4L NC ROS: 10 point ROS as noted above, otherwise negative Physical Exam: GEN: Alert, oriented, short of breath HEENT: Normal conjunctiva, sclera anicteric CV: Regular rate and rhythm, no edema Pulm: Nonlabored respirations on 4L NC, +Crackles/rales, ABD: soft, nontender, nondistended Neuro: Normal speech, normal affect Problem List: NSTEMI acute hypoxemic respiratory failure secondary to CHF exacerbation, flu pneumonia Acute on chronic diastolic CHF GILBERTO on CKD Influenza Pneumonia Hypertension h/o severe obstructive sleep apnea NIDDM2 NSTEMI Acute hypoxemic respiratory failure secondary to CHF exacerbation, flu pneumonia Acute on chronic CHF Scott chest pain. His family services specialist is Dr. Charles. CXR (10/17): mild interstitial edema CXR (10/19): pulm edema troponins elevated, monitor on tele BNP: 2468 on admission Echo ~1 year ago with normal EF per patient. Echo (10/18/23): 53% EF, normal diastolic function, mild concentric LVH, mild MR Cardiology consulted Heart cath canceled 10/18 - delay until renal fxn stabilizes / HD started will f./u with cardiology today regarding timing of cath GILBERTO on CKD Patient with acute on chronic renal insufficiency. Patient's prior GFR on the chart was about 50. Currently his GFR is 11. Renal ultrasound done over a year ago did not reveal any significant pathology. Renal u/s (10/17): Increased renal echotexture consistent with parenchymal disease. Nephrology consulted - renal dose all medications. Dr. Dunn consulted for HD cath placement (10/18); s/p tunneled HD cath placement (10/19) tolerated first acute HD yesterday Creatinine 9.7 -> 9.2 (10/20) acute HD per nephrology Influenza Pneumonia Continue tamiflu x5 days pulm consulted PRN nebs 101 fever overnight Hypertension confirm home meds, restart as appropriate h/o severe obstructive sleep apnea ABGs does not reveal any significant degree of hypercapnia at this time continue oral bicarb at this time. Continue monitoring acidosis. NIDDM2 ACHS accucheck. SSI VTE: SCD Code: Full Dispo: Home, ~2-3 days Pending further acute HD / outpatient HD setup, afebrile > 24 hours, ?heart cath
[2023-10-20] MEDS: TRAMADOL 37.5mg/APAP 325mg PER TAB PO PRN (12:10)
--- NOTE | 2023-10-20 12:10 | P.PN ---
Date of Service: 10/20/23 Vital Signs Temp Pulse Resp BP Pulse Ox 100 F 71 18 107/54 L 95 10/20/23 11:26 10/20/23 11:26 10/20/23 11:26 10/20/23 11:26 10/20/23 11:26 Medications Acetaminophen (Acetaminophen 500 Mg Tab) 500 mg PO Q4HP PRN PRN Reason: Pain scale 2-4 (Mild)/Fever Last Admin: 10/20/23 09:14 Dose: 500 mg Albuterol Sulfate (Albuterol 2.5 Mg/3 Ml Neb Kajal) 2.5 mg NEB [id number] PRN PRN Reason: SHORTNESS OF BREATH Last Admin: 10/18/23 14:18 Dose: 2.5 mg Amlodipine Besylate (Amlodipine 5 Mg Tab) 5 mg PO BID [facility] Last Admin: 10/20/23 09:15 Dose: 5 mg Atenolol (Atenolol 25 Mg Tab) 25 mg PO BEDTIME [facility] Last Admin: 10/19/23 21:25 Dose: 25 mg Atorvastatin Calcium (Atorvastatin 10 Mg Tab) 10 mg PO BEDTIME [facility] Last Admin: 10/19/23 21:25 Dose: 10 mg Calcitriol (Calcitrol 0.25 Mcg Cap) 0.5 mcg PO DAILY [facility] Last Admin: 10/20/23 09:14 Dose: 0.5 mcg Calcium Acetate (Calcium Acetate 667 Mg Tab) 667 mg PO TIDWM [facility] Last Admin: 10/20/23 09:15 Dose: 667 mg Clonidine HCl (Clonidine Hcl 0.1 Mg Tab) 0.1 mg PO Q6H PRN PRN Reason: SBP GREATER THAN 170 Dextrose (D10w 250 Ml Bag) 125 ml IV PRN PRN PRN Reason: HYPOGLYCEMIA Docusate Sodium (Docusate Na 100 Mg Cap) 100 mg PO BID [facility] Last Admin: 10/20/23 09:15 Dose: 100 mg Epoetin Liam (Epoetin Liam 10,000 Unit/Ml Vial) 10,000 unit IV EVERY HD [facility] Last Admin: 10/19/23 18:00 Dose: 10,000 unit Ergocalciferol (Drisdol (Vitamin D=Ergocalciferol) 95180 Unit Cap) 50,000 unit PO Q48H [facility] Stop: 10/21/23 09:01 Last Admin: 10/19/23 08:48 Dose: Not Given Furosemide (Furosemide 40 Mg/4 Ml Vial) 40 mg IV Q6H [facility] Last Admin: 10/20/23 09:22 Dose: 40 mg Glucagon (Glucagon 1 Mg/Vial) 1 mg IM 1X PRN PRN Reason: HYPOGLYCEMIA Heparin Sodium (Porcine) (Heparin 1,000 Unit/Ml Vial) 6,000 unit IV EVERY HD PRN PRN Reason: AFTER EACH Last Admin: 10/19/23 18:46 Dose: 6,000 unit Hydralazine HCl (Hydralazine Hcl 20 Mg/Ml Vial) 10 mg IV Q4HP PRN PRN Reason: Goal to achieve SBP in comment Last Admin: 10/17/23 11:21 Dose: 10 mg Albumin Human (Albumin 25%) 50 mls @ 100 mls/hr IV EVERY HD [facility] Insulin Human Regular (Insulin Regular (Human) 100 Unit/Ml) 0 unit SQ ACHS [facility]; Protocol Last Admin: 10/20/23 07:30 Dose: Not Given Lorazepam (Lorazepam 2 Mg/Ml Vial) 1 mg IV Q6H PRN PRN Reason: ANXIETY Last Admin: 10/17/23 20:48 Dose: 1 mg Losartan Potassium (Losartan Potassium 50 Mg Tablet) 50 mg PO BID [facility] Mannitol (Mannitol 25% 12.5 Gm/50 Ml Vial) 12.5 gm IV EVERY HD PRN PRN Reason: Titrate to SBP (MUST DEFINE) Morphine Sulfate (Morphine 2 Mg/Ml Syr) 2 mg IV Q6H PRN PRN Reason: Pain scale 8-10 (Severe) Ondansetron HCl (Ondansetron 4 Mg/2 Ml Vial) 4 mg IV Q6HP PRN PRN Reason: NAUSEA / VOMITING Oseltamivir Phosphate (Oseltamivir 30 Mg Cap) 30 mg PO Q48H [facility] Stop: 10/22/23 21:01 Sodium Bicarbonate (Sodium Bicarb 325 Mg Tab) 650 mg PO BID [facility] Last Admin: 10/20/23 09:14 Dose: 650 mg Terazosin HCl (Terazosin Hcl 5 Mg Cap) 5 mg PO BID [facility] Last Admin: 10/20/23 09:16 Dose: 5 mg Tramadol/Acetaminophen (Tramadol 37.5mg/Apap 325mg Per Tab) 1 tab PO Q6H PRN PRN Reason: Pain scale 5-7 (Moderate) Last Admin: 10/19/23 21:36 Dose: 1 tab Microbiology Results 10/17/23 02:10 Blood - Blood Aerobic Blood Culture - Preliminary No growth in 24 hours. 10/17/23 02:10 Blood - Blood Anaerobic Blood Culture - Preliminary No growth in 24 hours. 10/17/23 01:45 Blood - Blood Aerobic Blood Culture - Preliminary No growth in 24 hours. 10/17/23 01:45 Blood - Blood Anaerobic Blood Culture - Preliminary No growth in 24 hours. 10/17/23 01:40 Nasopharnyx Influenza Type A Antigen Screen - Final 10/17/23 01:40 Nasopharnyx Influenza Type B Antigen Screen - Final Assessment/ Plan: Nephrology Feeling better No dyspnea. HERRERA No chest pain No acute events overnight Vitals, medications, blood work and imaging reviewed in the chart General: Alert, Oriented x3, Cooperative, Mild distress HEENT: Atraumatic Neck: Supple Respiratory: Crackles/rales Cardiovascular: Regular rate/rhythm, Edema none Gastrointestinal: Soft and benign, Distended Musculoskeletal: No clubbing, No contractures Integumentary: No rashes Neurological: Normal speech Laboratory Data (last 24 hrs) 10/17/23 10/17/23 10/17/23 03:40 01:45 01:45 WBC 8.70 Hgb 10.0 L Hct 29.8 L Plt Count 157 PT 13.4 H INR 1.23 APTT 35.1 Sodium Potassium BUN Creatinine Glucose Uric Acid 10.3 H Total Bilirubin 0.3 AST 29 ALT 21 Alkaline Phosphatase 65 10/17/23 01:45 WBC Hgb Hct Plt Count PT INR APTT Sodium 139 Potassium 4.4 BUN 59 H Creatinine 5.90 H Glucose 251 H Uric Acid Total Bilirubin AST ALT Alkaline Phosphatase Normal CHARLENE, SPEP, UIFE 11-29-22 Imagings Data: EXAM DESCRIPTION: US - Renal Ultrasound-Limited - 10/17/2023 7:23 am CLINICAL HISTORY: Acute renal failure COMPARISON: None. FINDINGS: The right kidney measures 12 cm with an increased echotexture. A 1.4 centimeter cyst The left kidney measures 11 cm with an increased echotexture. Hydronephrosis is not seen. No gross abnormality of bladder is noted IMPRESSION: Increased renal echotexture consistent with parenchymal disease LEFT VENTRICULAR WALL MOTION: NORMAL DOPPLER/COLOR FLOW: MILD MITRAL REGURGITATION. COMMENTS: 1. NORMAL LEFT VENTRICULAR EJECTION FRACTION 55-60% AND NORMAL WALL MOTION. 2. NORMAL DIASTOLIC FUNCTION. 3. MILD CONCENTRIC LEFT VENTRICULAR HYPERTROPHY. 4. MILD MITRAL REGURGITATION. Conclusions/Impression: Stage III GILBERTO may be progressive CKD complicated by CRS and Motrin given in the ER for fever CKD IIIa with Proteinuria -No NSAIDs -Continue diuresis -Surgery placed tunneled HD CVC 10-19-23 -HD initiated 10-19-23 -HBV negative -HD as ordered Metabolic Acidosis -DC oral bicarb HTN with CKD/ CHF -Hydralazine prn -Clonidine prn -Continue Amlodipine -Continue Atenolol -Continue Terazosin -Start Losartan bid KWAKU not on home therapy -Continue Bipap prn Acute respiratory failure Diastolic CHF, A/C LVH -Echocardiogram reviewed -Bipap prn -Change Lasix to oral Bumex DM II with CKD -Continue RISS Hypoalbuminemia -Consider protein supplementation Anemia in chronic illness -Monitor H&H -Retacrit prn CKD MBD -Continue Phoslo -Continue Ergo and Calcitriol Former Cigarette Smoker -Maintain cessation Case reviewed with Dr. Palmer
[2023-10-20] MEDS: EPOETIN ALFA 10,000 UNIT/ML VIAL IV SCH (13:05)
[2023-10-20] MEDS: BUMETANIDE 1 MG TABLET PO SCH (16:35)
[2023-10-20] MEDS: LOSARTAN POTASSIUM 50 MG TABLET PO SCH (20:32)
[2023-10-20] MEDS: OSELTAMIVIR 30 MG CAP PO SCH (20:32)
[2023-10-20] MEDS: ATORVASTATIN 10 MG TAB PO SCH (20:32)
[2023-10-20] MEDS: atenoloL 25 MG TAB PO SCH (20:33)
[2023-10-20] MEDS ORDERED: HYDRALAZINE HCL 25 MG TABLET PO SCH (21:00)
[2023-10-21] MEDS: ALBUTEROL 2.5 MG/3 ML NEB SOL NEB PRN (00:07)
[2023-10-21] MEDS: ACETAMINOPHEN 500 MG TAB PO PRN ×3 (00:23→20:45)
[2023-10-21] MEDS: INSULIN REGULAR (HUMAN) 100 UNIT/ML SQ SCH ×4 (07:30→20:46)
[2023-10-21 08:21] LABS: Absolute Lymphocytes (CBC) 0.9 K/uL (0.7-4.9); Hematocrit 24.8 % (39.6-49.0); Lymphocytes % 16.5 % (15.3-44.8); MCV 87.4 fL (80-100); MPV 9.1 fL (7.6-11.3); Platelets 153 thou/uL (152-406); RBC Red Blood Cell Count 2.84 M/uL (4.33-5.43)
[2023-10-21 08:34] LABS: Phosphorus 5.4 mg/dL (2.5-4.9); Uric Acid 8.5 mg/dL (3.5-7.2)
[2023-10-21] MEDS: DOCUSATE NA 100 MG CAP PO SCH ×2 (08:34→20:46)
[2023-10-21] MEDS: CALCIUM ACETATE 667 MG TAB PO SCH ×3 (08:34→16:55)
[2023-10-21] MEDS: AMLODIPINE 5 MG TAB PO SCH ×3 (08:35→20:51)
[2023-10-21] MEDS: LOSARTAN POTASSIUM 50 MG TABLET PO SCH ×2 (08:36→20:45)
[2023-10-21] MEDS: DRISDOL (VITAMIN D=ERGOCALCIFEROL) 50000 UNIT CAP PO SCH (08:36)
[2023-10-21] MEDS: TERAZOSIN HCL 5 MG CAP PO SCH ×2 (08:36→20:45)
[2023-10-21] MEDS: CALCITROL 0.25 MCG CAP PO SCH (08:37)
--- NOTE | 2023-10-21 08:43 | P.PN ---
Date of Service: 10/21/23 Subjective: Continues with intermittent fever throughout day/night no new symptoms/worsening tolerating HD ROS: 10 point ROS as noted above, otherwise negative Physical Exam: GEN: Alert, oriented, short of breath HEENT: Normal conjunctiva, sclera anicteric CV: Regular rate and rhythm, no edema Pulm: Nonlabored respirations on 4L NC, +Crackles/rales, ABD: soft, nontender, nondistended Neuro: Normal speech, normal affect Problem List: NSTEMI acute hypoxemic respiratory failure secondary to CHF exacerbation, flu pneumonia Acute on chronic diastolic CHF GILBERTO on CKD Influenza Pneumonia Hypertension h/o severe obstructive sleep apnea NIDDM2 NSTEMI Acute hypoxemic respiratory failure secondary to CHF exacerbation, flu pneumonia Acute on chronic CHF Scott chest pain. His master ocean is Dr. Charles. CXR (10/17): mild interstitial edema CXR (10/19): pulm edema troponins elevated, monitor on tele BNP: 2468 on admission Echo ~1 year ago with normal EF per patient. Echo (10/18/23): 53% EF, normal diastolic function, mild concentric LVH, mild MR Cardiology consulted Heart cath canceled 10/18 - delay until renal fxn stabilizes / HD started will f/u with cardiology regarding timing of cath GILBERTO on CKD Patient with acute on chronic renal insufficiency. Patient's prior GFR on the chart was about 50. Currently his GFR is 11. Renal u/s done over a year ago did not reveal any significant pathology. Renal u/s (10/17): Increased renal echotexture consistent with parenchymal disease. Nephrology consulted - renal dose all medications. Dr. Dunn consulted for HD cath placement (10/18); s/p tunneled HD cath placement (10/19) tolerated first acute HD (10/19) Creatinine 9.2 -> 9.66 (10/21) Acute HD per nephrology. Pending outpatient dialysis setup / chair time Influenza Pneumonia Continue tamiflu (10/17-10/22) x5 days pulm consulted PRN nebs Continues with intermittent fever throughout day/night Hypertension confirm home meds, restart as appropriate h/o severe obstructive sleep apnea ABGs does not reveal any significant degree of hypercapnia at this time continue oral bicarb at this time. Continue monitoring acidosis. NIDDM2 ACHS accucheck. SSI VTE: SCD Code: Full Dispo: Home, several days Pending further acute HD / outpatient HD setup, afebrile > 24 hours, heart cath
[2023-10-21] MEDS: BUMETANIDE 1 MG TABLET PO SCH ×2 (08:47→16:53)
[2023-10-21] MEDS ORDERED: ALBUMIN HUMAN 25% 50 ML IV SCH (13:00)
--- NOTE | 2023-10-21 13:53 | P.PN ---
Nephrology note (S) Pt has tolerated initial HD sessions, reports dyspnea stable, still on O2, some nasal drainage/cough, low grade temp within the past 24h. (O) Vitals, medications, blood work and imaging reviewed in the chart General: Alert, Oriented x3, Cooperative, HEENT: Atraumatic, sclera anicteric, LFNC Neck: Supple, IJ TDC Respiratory: no anterior rhonchi, reduced at bases Cardiovascular: Regular rate/rhythm, Edema none Gastrointestinal: Soft, obese, NT Musculoskeletal: No contractures Integumentary: No rashes Neurological: Normal speech, awake, alert Laboratory Data (last 24 hrs) Imagings Data: EXAM DESCRIPTION: US - Renal Ultrasound-Limited - 10/17/2023 7:23 am CLINICAL HISTORY: Acute renal failure COMPARISON: None. FINDINGS: The right kidney measures 12 cm with an increased echotexture. A 1.4 centimeter cyst The left kidney measures 11 cm with an increased echotexture. Hydronephrosis is not seen. No gross abnormality of bladder is noted IMPRESSION: Increased renal echotexture consistent with parenchymal disease LEFT VENTRICULAR WALL MOTION: NORMAL DOPPLER/COLOR FLOW: MILD MITRAL REGURGITATION. COMMENTS: 1. NORMAL LEFT VENTRICULAR EJECTION FRACTION 55-60% AND NORMAL WALL MOTION. 2. NORMAL DIASTOLIC FUNCTION. 3. MILD CONCENTRIC LEFT VENTRICULAR HYPERTROPHY. 4. MILD MITRAL REGURGITATION. Conclusions/Impression: Stage III ARF (multifactorial) on probable underlying progressive CKD (Cr level was > 2 mg/dl on prior office visit with Dr. Cooper early last year prior to being lost to f/u) with notable proteinuria. -Serologic w/u neg, renal biopsy not currently being pursued and unlikely to find a reversible etiology for any other primary glomerulopathy -Surgery placed tunneled HD CVC 10-19-23 -HD initiated 10-19-23 -Repeat HD today, with initial sessions of HD, no sig metab clearance seen. Will increase Rx time and flows on dialysis and will check pre and post BUN to calculate urea rate reduction. Hypertensive urgency, malignant HTN -BP sig improved on med and with diuresis/UF. Cont to monitor Acute hypoxic respiratory failure. Positive flu A status. Diastolic CHF, A/C Acute pulm edema -Stable clinically, wean off o2 as tolerated Herbert Michele MD. DARIN
--- NOTE | 2023-10-21 13:55 | EKG ---
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
[2023-10-21] MEDS: EPOETIN ALFA 10,000 UNIT/ML VIAL IV SCH (14:30)
--- NOTE | 2023-10-21 19:44 | RAD REPORT ---
EXAM DESCRIPTION: Latha Single View10/21/2023 7:15 pm CLINICAL HISTORY: Hypoxia COMPARISON: October 19, 2023 FINDINGS: Mild improvement in the bilateral pulmonary opacities. The heart remains enlarged. Central venous line place IMPRESSION: Mild improvement in the bilateral pulmonary opacities which may represent pulmonary danny a
[2023-10-21] MEDS: ATORVASTATIN 10 MG TAB PO SCH (20:45)
[2023-10-21] MEDS: atenoloL 25 MG TAB PO SCH (20:45)
[2023-10-22 06:44] LABS: Absolute Lymphocytes (CBC) 1.2 K/uL (0.7-4.9); Hematocrit 24.8 % (39.6-49.0); Lymphocytes % 24.1 % (15.3-44.8); MCV 87.6 fL (80-100); MPV 8.5 fL (7.6-11.3); Platelets 159 thou/uL (152-406); RBC Red Blood Cell Count 2.82 M/uL (4.33-5.43)
[2023-10-22 07:27] LABS: Albumin 1.9 g/dL (3.4-5.0); Bilirubin Total 0.2 mg/dL (0.2-1.0); Phosphorus 4.9 mg/dL (2.5-4.9); Potassium 3.6 mEq/L (3.5-5.1); Protein, Total 5.9 g/dL (6.4-8.2)
[2023-10-22] MEDS: INSULIN REGULAR (HUMAN) 100 UNIT/ML SQ SCH ×4 (07:30→21:02)
[2023-10-22] MEDS: ACETAMINOPHEN 500 MG TAB PO PRN (08:34)
[2023-10-22] MEDS: CALCITROL 0.25 MCG CAP PO SCH (08:35)
[2023-10-22] MEDS: BUMETANIDE 1 MG TABLET PO SCH ×2 (08:35→17:25)
[2023-10-22] MEDS: CALCIUM ACETATE 667 MG TAB PO SCH ×3 (08:35→17:25)
[2023-10-22] MEDS: AMLODIPINE 5 MG TAB PO SCH ×2 (08:35→21:00)
[2023-10-22] MEDS: DOCUSATE NA 100 MG CAP PO SCH ×2 (08:35→21:01)
[2023-10-22] MEDS: LOSARTAN POTASSIUM 50 MG TABLET PO SCH ×2 (08:36→21:01)
--- NOTE | 2023-10-22 10:44 | P.PN ---
Subjective Date of Service: 10/22/23 Primary Care Provider: Dr. Pruett Chief Complaint: Fever Subjective: Improving (Patient is improving currently undergoing dialysis has been running some fever eyes any cough chest pain) Review of Systems Unremarkable Physical Examination - Vital Signs Temperature: 100 F Blood Pressure: 122/60 Pulse: 73 Respirations: 18 Pulse Ox (%): 94 - Physical Exam General: Alert, Oriented x3 Respiratory: Clear to auscultation bilaterally Cardiovascular: No edema, Regular rate/rhythm, Normal S1 S2 - Studies Microbiology Data (last 24 hrs): 10/17/23 02:10 Blood - Blood Aerobic Blood Culture - Final No growth in 5 days. 10/17/23 02:10 Blood - Blood Anaerobic Blood Culture - Final No growth in 5 days. 10/17/23 01:45 Blood - Blood Aerobic Blood Culture - Final No growth in 5 days. 10/17/23 01:45 Blood - Blood Anaerobic Blood Culture - Final No growth in 5 days. 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 Augmentin patient has some intermittent fever since admission and is on antiviral drugs procalcitonin level was also elevated Qualifiers: Encounter type: initial encounter
--- NOTE | 2023-10-22 11:34 | P.PN ---
Date of Service: 10/22/23 Subjective: Febrile yesterday afternoon. +low grade temps this morning Breathing feels a little easier when ambulating per patient oxygen requirements improving. down to 2L NC no new / worsening problems tolerating HD ROS: 10 point ROS as noted above, otherwise negative Physical Exam: GEN: Alert, oriented, short of breath HEENT: Normal conjunctiva, sclera anicteric CV: Regular rate and rhythm, trace b/l pedal edema Pulm: Nonlabored respirations on 2L NC, +Crackles/rales, ABD: soft, nontender, nondistended Neuro: Normal speech, normal affect Problem List: NSTEMI acute hypoxemic respiratory failure secondary to CHF exacerbation, flu pneumonia Acute on chronic diastolic CHF GILBERTO on CKD Influenza Pneumonia Hypertension h/o severe obstructive sleep apnea NIDDM2 NSTEMI Acute hypoxemic respiratory failure secondary to CHF exacerbation, flu pneumonia Acute on chronic CHF Scott chest pain. His museum assistant is Dr. Charles. CXR (10/17): mild interstitial edema CXR (10/19): pulm edema CXR (10/22): Mild improvement in b/l pulmonary opacities Pulm following added rocephin (10/22-) troponins elevated, monitor on tele BNP: 2468 on admission Echo ~1 year ago with normal EF per patient. Echo (10/18/23): 53% EF, normal diastolic function, mild concentric LVH, mild MR Cardiology consulted Heart cath canceled (10/18) - delay until renal fxn stabilizes will f/u with cardiology regarding timing of cath discussed briefly on 10/22, tentative plan for Tuesday GILBERTO on CKD Patient with acute on chronic renal insufficiency. Patient's prior GFR on the chart was about 50. Currently his GFR is 11. Renal u/s done over a year ago did not reveal any significant pathology. Renal u/s (10/17): Increased renal echotexture consistent with parenchymal disease. Nephrology consulted - renal dose all medications. Dr. Dunn consulted for HD cath placement (10/18); s/p tunneled HD cath placement (10/19) tolerated first acute HD (10/19) Creatinine 9.66 -> 8.68 (10/22) Acute HD per nephrology. approved for chair time 6am MWF and a start date of 10/26/23 Influenza Pneumonia Continue tamiflu (10/17-10/22) x5 days pulm consulted PRN nebs Tmax last 24 hours: 102.4; +low grade temps today Hypertension confirm home meds, restart as appropriate h/o severe obstructive sleep apnea ABGs does not reveal any significant degree of hypercapnia at this time continue oral bicarb at this time. Continue monitoring acidosis. NIDDM2 ACHS accucheck. SSI VTE: SCD Code: Full Dispo: Home, several days Pending further acute HD, afebrile > 24 hours, heart cath
--- NOTE | 2023-10-22 11:34 | RAD REPORT ---
EXAM DESCRIPTION: RAD - Chest Pa And Lat (2 Views) - 10/22/2023 11:24 am CLINICAL HISTORY: Fever DDx penumonia Chest pain. COMPARISON: Chest Single View dated 10/21/2023; Chest Single View dated 10/19/2023; Chest Single View da chucho 10/17/2023 FINDINGS: Moderate bilateral pulmonary opacities are again seen, mildly improved since 10/21/2023 st [facility]. Findings may represent pulmonary edema or pneumonia. The heart is mildly enlarged in size. No di splaced fractures. Right-sided venous catheter tip in the SVC. IMPRESSION: Mild improvement in bilateral pulmonary opacities since yesterday's study.
--- NOTE | 2023-10-22 12:39 | P.PN ---
Date of Service: 10/22/23 Vital Signs Temp Pulse Resp BP Pulse Ox 100 F 73 18 122/60 94 10/22/23 10:44 10/22/23 10:44 10/22/23 10:44 10/22/23 10:44 10/22/23 10:44 Medications Acetaminophen (Acetaminophen 500 Mg Tab) 500 mg PO Q4HP PRN PRN Reason: Pain scale 2-4 (Mild)/Fever Last Admin: 10/22/23 08:34 Dose: 500 mg Albuterol Sulfate (Albuterol 2.5 Mg/3 Ml Neb Kajal) 2.5 mg NEB [id number] PRN PRN Reason: SHORTNESS OF BREATH Last Admin: 10/21/23 00:07 Dose: 2.5 mg Amlodipine Besylate (Amlodipine 5 Mg Tab) 5 mg PO BID [facility] Last Admin: 10/22/23 08:35 Dose: 5 mg Atenolol (Atenolol 25 Mg Tab) 25 mg PO BEDTIME [facility] Last Admin: 10/21/23 20:45 Dose: 25 mg Atorvastatin Calcium (Atorvastatin 10 Mg Tab) 10 mg PO BEDTIME [facility] Last Admin: 10/21/23 20:45 Dose: 10 mg Bumetanide (Bumetanide 1 Mg Tablet) 1 mg PO BIDAC [facility] Last Admin: 10/22/23 08:35 Dose: 1 mg Calcitriol (Calcitrol 0.25 Mcg Cap) 0.5 mcg PO DAILY [facility] Last Admin: 10/22/23 08:35 Dose: 0.5 mcg Calcium Acetate (Calcium Acetate 667 Mg Tab) 667 mg PO TIDWM [facility] Last Admin: 10/22/23 08:35 Dose: 667 mg Clonidine HCl (Clonidine Hcl 0.1 Mg Tab) 0.1 mg PO Q6H PRN PRN Reason: SBP GREATER THAN 170 Dextrose (D10w 250 Ml Bag) 125 ml IV PRN PRN PRN Reason: HYPOGLYCEMIA Docusate Sodium (Docusate Na 100 Mg Cap) 100 mg PO BID [facility] Last Admin: 10/22/23 08:35 Dose: 100 mg Epoetin Liam (Epoetin Liam 10,000 Unit/Ml Vial) 10,000 unit IV EVERY HD [facility] Last Admin: 10/21/23 14:30 Dose: 10,000 unit Glucagon (Glucagon 1 Mg/Vial) 1 mg IM 1X PRN PRN Reason: HYPOGLYCEMIA Heparin Sodium (Porcine) (Heparin 1,000 Unit/Ml Vial) 6,000 unit IV EVERY HD PRN PRN Reason: AFTER EACH Last Admin: 10/21/23 15:02 Dose: 6,000 unit Hydralazine HCl (Hydralazine Hcl 20 Mg/Ml Vial) 10 mg IV Q4HP PRN PRN Reason: Goal to achieve SBP in comment Last Admin: 10/17/23 11:21 Dose: 10 mg Albumin Human (Albumin 25%) 50 mls @ 100 mls/hr IV EVERY HD [facility] Ceftriaxone Sodium 1,000 mg/ (Sodium Chloride) 50 mls @ 100 mls/hr IVPB DAILY [facility]; Protocol Insulin Human Regular (Insulin Regular (Human) 100 Unit/Ml) 0 unit SQ ACHS [facility]; Protocol Last Admin: 10/22/23 07:30 Dose: Not Given Lorazepam (Lorazepam 2 Mg/Ml Vial) 1 mg IV Q6H PRN PRN Reason: ANXIETY Last Admin: 10/17/23 20:48 Dose: 1 mg Losartan Potassium (Losartan Potassium 50 Mg Tablet) 50 mg PO BID [facility] Last Admin: 10/22/23 08:36 Dose: Not Given Morphine Sulfate (Morphine 2 Mg/Ml Syr) 2 mg IV Q6H PRN PRN Reason: Pain scale 8-10 (Severe) Ondansetron HCl (Ondansetron 4 Mg/2 Ml Vial) 4 mg IV Q6HP PRN PRN Reason: NAUSEA / VOMITING Oseltamivir Phosphate (Oseltamivir 30 Mg Cap) 30 mg PO Q48H [facility] Stop: 10/22/23 21:01 Last Admin: 10/20/23 20:32 Dose: 30 mg Terazosin HCl (Terazosin Hcl 5 Mg Cap) 5 mg PO BEDTIME [facility] Last Admin: 10/21/23 20:45 Dose: 5 mg Tramadol/Acetaminophen (Tramadol 37.5mg/Apap 325mg Per Tab) 1 tab PO Q6H PRN PRN Reason: Pain scale 5-7 (Moderate) Last Admin: 10/20/23 12:10 Dose: 1 tab Microbiology Results 10/17/23 02:10 Blood - Blood Aerobic Blood Culture - Final No growth in 5 days. 10/17/23 02:10 Blood - Blood Anaerobic Blood Culture - Final No growth in 5 days. 10/17/23 01:45 Blood - Blood Aerobic Blood Culture - Final No growth in 5 days. 10/17/23 01:45 Blood - Blood Anaerobic Blood Culture - Final No growth in 5 days. 10/17/23 01:40 Nasopharnyx Influenza Type A Antigen Screen - Final 10/17/23 01:40 Nasopharnyx Influenza Type B Antigen Screen - Final Assessment/ Plan: Nephrology Doing well No dyspnea No chest pain No acute events overnight Vitals, medications, blood work and imaging reviewed in the chart General: Alert, Oriented x3, Cooperative, NAD. Obese. HEENT: Atraumatic Neck: Supple Respiratory: CTA Cardiovascular: Regular rate/rhythm, Edema none Gastrointestinal: Soft and benign, Distended Musculoskeletal: No clubbing, No contractures Integumentary: No rashes Neurological: Normal speech Laboratory Data (last 24 hrs) 10/17/23 10/17/23 10/17/23 03:40 01:45 01:45 WBC 8.70 Hgb 10.0 L Hct 29.8 L Plt Count 157 PT 13.4 H INR 1.23 APTT 35.1 Sodium Potassium BUN Creatinine Glucose Uric Acid 10.3 H Total Bilirubin 0.3 AST 29 ALT 21 Alkaline Phosphatase 65 10/17/23 01:45 WBC Hgb Hct Plt Count PT INR APTT Sodium 139 Potassium 4.4 BUN 59 H Creatinine 5.90 H Glucose 251 H Uric Acid Total Bilirubin AST ALT Alkaline Phosphatase Normal CHARLENE, SPEP, UIFE 11-29-22 Imagings Data: EXAM DESCRIPTION: US - Renal Ultrasound-Limited - 10/17/2023 7:23 am CLINICAL HISTORY: Acute renal failure COMPARISON: None. FINDINGS: The right kidney measures 12 cm with an increased echotexture. A 1.4 centimeter cyst The left kidney measures 11 cm with an increased echotexture. Hydronephrosis is not seen. No gross abnormality of bladder is noted IMPRESSION: Increased renal echotexture consistent with parenchymal disease LEFT VENTRICULAR WALL MOTION: NORMAL DOPPLER/COLOR FLOW: MILD MITRAL REGURGITATION. COMMENTS: 1. NORMAL LEFT VENTRICULAR EJECTION FRACTION 55-60% AND NORMAL WALL MOTION. 2. NORMAL DIASTOLIC FUNCTION. 3. MILD CONCENTRIC LEFT VENTRICULAR HYPERTROPHY. 4. MILD MITRAL REGURGITATION. Conclusions/Impression: Stage III GILBERTO may be progressive CKD complicated by CRS and Motrin given in the ER for fever CKD IIIa with Proteinuria -No NSAIDs -Continue diuresis -Surgery placed tunneled HD CVC 10-19-23 -HD initiated 10-19-23 -HBV negative -HD as ordered -Dialysis placement pending Metabolic Acidosis, improving HTN with CKD/ CHF -Hydralazine prn -Clonidine prn -Continue Amlodipine -Continue Atenolol -Continue Terazosin -Continue Losartan KWAKU not on home therapy -Continue Bipap prn Acute respiratory failure Diastolic CHF, A/C LVH -Echocardiogram reviewed -Bipap prn -Change Lasix to oral Bumex DM II with CKD -Continue RISS Hypoalbuminemia -Consider protein supplementation Anemia in chronic illness -Monitor H&H -Retacrit prn CKD MBD -Continue Phoslo -Continue Ergo and Calcitriol Former Cigarette Smoker -Maintain cessation Hospitalist note reviewed
[2023-10-22] MEDS: CEFTRIAXONE 1,000 MG in NA CHLORIDE 0.9% 50 ML IVPB SCH (12:43)
[2023-10-22] MEDS: TERAZOSIN HCL 5 MG CAP PO SCH (21:00)
[2023-10-22] MEDS: atenoloL 25 MG TAB PO SCH (21:00)
[2023-10-22] MEDS: ATORVASTATIN 10 MG TAB PO SCH (21:01)
[2023-10-22] MEDS: OSELTAMIVIR 30 MG CAP PO SCH (21:01)
[2023-10-23 05:30] VITALS: BMI 44.6
[2023-10-23] MEDS: INSULIN REGULAR (HUMAN) 100 UNIT/ML SQ SCH ×4 (07:30→20:18)
[2023-10-23 07:33] LABS: Potassium 3.5 mEq/L (3.5-5.1)
[2023-10-23] MEDS: CALCIUM ACETATE 667 MG TAB PO SCH ×3 (08:31→16:53)
[2023-10-23] MEDS: CALCITROL 0.25 MCG CAP PO SCH (08:31)
[2023-10-23] MEDS: LOSARTAN POTASSIUM 50 MG TABLET PO SCH ×2 (08:31→20:12)
[2023-10-23] MEDS: BUMETANIDE 1 MG TABLET PO SCH ×2 (08:31→16:54)
[2023-10-23] MEDS: DOCUSATE NA 100 MG CAP PO SCH ×2 (08:31→20:12)
[2023-10-23] MEDS: AMLODIPINE 5 MG TAB PO SCH ×2 (08:32→20:17)
[2023-10-23] MEDS: CEFTRIAXONE 1,000 MG in NA CHLORIDE 0.9% 50 ML IVPB SCH (08:32)
--- NOTE | 2023-10-23 08:41 | P.PN ---
Date of Service: 10/23/23 Subjective: Feeling better today denies any new / worsening symptoms Breathing okay on 2L NC afebrile for > 24 hours now Briefly spoke with Dr. Talavera yesterday; tentative plan for heart cath ~Tuesday (10/24) ROS: 10 point ROS as noted above, otherwise negative Physical Exam: GEN: Alert, oriented, NAD HEENT: Normal conjunctiva, sclera anicteric CV: Regular rate and rhythm, trace b/l pedal edema Pulm: Nonlabored respirations on 2L NC, diminished at bases bilaterally ABD: soft, nontender, nondistended Neuro: Normal speech, normal affect Problem List: NSTEMI acute hypoxemic respiratory failure secondary to CHF exacerbation, flu pneumonia Acute on chronic diastolic CHF GILBERTO on CKD Influenza Pneumonia Hypertension h/o severe obstructive sleep apnea NIDDM2 NSTEMI Acute hypoxemic respiratory failure secondary to CHF exacerbation, flu pneumonia Acute on chronic CHF Scott chest pain. His tax appraiser is Dr. Charles. CXR (10/17): mild interstitial edema CXR (10/19): pulm edema CXR (10/22): Mild improvement in b/l pulmonary opacities Pulm following added rocephin (10/22-) troponins elevated, monitor on tele BNP: 2468 on admission Echo ~1 year ago with normal EF per patient. Echo (10/18/23): 53% EF, normal diastolic function, mild concentric LVH, mild MR Cardiology consulted Heart cath canceled (10/18) - delay until renal fxn stabilizes Briefly spoke with Dr. Talavera on (10/22). tentative plan for heart cath ~Tuesday (10/24) GILBERTO on CKD Patient with acute on chronic renal insufficiency. Patient's prior GFR on the chart was about 50. Currently his GFR is 11. Renal u/s done over a year ago did not reveal any significant pathology. Renal u/s (10/17): Increased renal echotexture consistent with parenchymal disease. Nephrology consulted - renal dose all medications. Dr. Dunn consulted for HD cath placement (10/18); s/p tunneled HD cath placement (10/19) tolerated first acute HD (10/19) Creatinine 8.68 -> 10.5 (10/23) Acute HD per nephrology approved for chair time 6am MWF and a start date of 10/26/23 Influenza Pneumonia Completed 5 days of tamiflu (10/17-10/22) pulm consulted PRN nebs afebrile for > 24 hours now Hypertension confirm home meds, restart as appropriate h/o severe obstructive sleep apnea ABGs does not reveal any significant degree of hypercapnia at this time continue oral bicarb at this time. Continue monitoring acidosis. NIDDM2 ACHS accucheck. SSI VTE: SCD Code: Full Dispo: Home, several days Pending tentative heart cath Tuesday (10/24), further acute HD, remains afebrile
--- NOTE | 2023-10-23 11:31 | P.PN ---
Subjective Date of Service: 10/23/23 Primary Care Provider: Dr. Pruett Chief Complaint: Possible underlying pneumonia Subjective: Improving (Patient is improving doing well) Review of Systems General: Weakness Respiratory: Shortness of Breath Physical Examination - Vital Signs Temperature: 97.9 F Blood Pressure: 122/65 Pulse: 59 Respirations: 22 Pulse Ox (%): 96 - Physical Exam General: Alert, Oriented x3 Respiratory: Clear to auscultation bilaterally Cardiovascular: No edema, Regular rate/rhythm Assessment And Plan - Current Problems (Diagnosis) (1) Congestive heart failure Current Visit: Yes Status: Acute Plan: Shortness of breath is improving currently on hemodialysis vital signs oxygenation satisfactory Qualifiers: Heart failure chronicity: unspecified (2) Fever Current Visit: Yes Status: Acute Plan: I suspect that this patient has underlying superimposed bacterial pneumonia with IV Rocephin changed to p.o. Augmentin or equivalent tomorrow review of recent chest x-ray shows superimposed right lower lobe suspect bacterial pneumonia Qualifiers: Encounter type: initial encounter
[2023-10-23] MEDS: TERAZOSIN HCL 5 MG CAP PO SCH (20:12)
[2023-10-23] MEDS: ATORVASTATIN 10 MG TAB PO SCH (20:12)
[2023-10-23] MEDS: atenoloL 25 MG TAB PO SCH (20:12)
[2023-10-24] MEDS: INSULIN REGULAR (HUMAN) 100 UNIT/ML SQ SCH ×4 (07:30→20:31)
[2023-10-24] MEDS: BUMETANIDE 1 MG TABLET PO SCH ×2 (07:30→16:18)
[2023-10-24] MEDS: CALCIUM ACETATE 667 MG TAB PO SCH ×3 (07:59→16:18)
[2023-10-24] MEDS: DOCUSATE NA 100 MG CAP PO SCH ×2 (07:59→20:30)
[2023-10-24] MEDS: CALCITROL 0.25 MCG CAP PO SCH (08:01)
[2023-10-24] MEDS: AMLODIPINE 5 MG TAB PO SCH ×2 (08:01→20:30)
[2023-10-24] MEDS: LOSARTAN POTASSIUM 50 MG TABLET PO SCH ×2 (08:01→20:30)
[2023-10-24] MEDS: CEFTRIAXONE 1,000 MG in NA CHLORIDE 0.9% 50 ML IVPB SCH (08:01)
[2023-10-24 08:15] LABS: Hematocrit 25.9 % (39.6-49.0); MCV 86.2 fL (80-100); MPV 8.3 fL (7.6-11.3); Platelets 243 thou/uL (152-406); Protime INR 1.15; RBC Red Blood Cell Count 3.01 M/uL (4.33-5.43)
[2023-10-24 08:24] LABS: Albumin 2.2 g/dL (3.4-5.0); Phosphorus 6.3 mg/dL (2.5-4.9); Potassium 3.9 mEq/L (3.5-5.1)
--- NOTE | 2023-10-24 09:20 | P.PN ---
Date of Service: 10/24/23 Subjective: Feeling a little better remains afebrile no acute events overnight ROS: 10 point ROS as noted above, otherwise negative Physical Exam: GEN: Alert, oriented, NAD HEENT: Normal conjunctiva, sclera anicteric CV: Regular rate and rhythm, trace b/l pedal edema Pulm: Nonlabored respirations on 2L NC, diminished at bases bilaterally ABD: soft, nontender, nondistended Neuro: Normal speech, normal affect Problem List: NSTEMI acute hypoxemic respiratory failure secondary to CHF exacerbation, flu pneumonia Acute on chronic diastolic CHF GILBERTO on CKD Influenza Pneumonia Hypertension h/o severe obstructive sleep apnea NIDDM2 NSTEMI Acute hypoxemic respiratory failure secondary to CHF exacerbation, flu pneumonia Acute on chronic CHF Scott chest pain. His building estimator is Dr. Charles. CXR (10/17): mild interstitial edema CXR (10/19): pulm edema CXR (10/22): Mild improvement in b/l pulmonary opacities Pulm following added rocephin (10/22-) troponins elevated, monitor on tele BNP: 2468 on admission Echo ~1 year ago with normal EF per patient. Echo (10/18/23): 53% EF, normal diastolic function, mild concentric LVH, mild MR Cardiology consulted Heart cath canceled (10/18) - delayed until renal fxn stabilizes tentative plan for heart cath today (10/24) GILBERTO on CKD Patient with acute on chronic renal insufficiency. Patient's prior GFR on the chart was about 50. Currently his GFR is 11. Renal u/s done over a year ago did not reveal any significant pathology. Renal u/s (10/17): Increased renal echotexture consistent with parenchymal disease. Nephrology consulted - renal dose all medications. Dr. Dunn consulted for HD cath placement (10/18); s/p tunneled HD cath placement (10/19) tolerated first acute HD (10/19) Acute HD per nephrology approved for chair time 6am MWF and a start date of 10/26/23 Influenza Pneumonia Completed 5 days of tamiflu (10/17-10/22) pulm consulted PRN nebs Remains afebrile > 48 hours Hypertension confirm home meds, restart as appropriate h/o severe obstructive sleep apnea ABGs does not reveal any significant degree of hypercapnia at this time continue oral bicarb at this time. Continue monitoring acidosis. NIDDM2 ACHS accucheck. SSI VTE: SCD Code: Full Dispo: Home, ~1-2 days Pending tentative heart cath today/recovery, further acute HD, remains afebrile
[2023-10-24] MEDS ORDERED: HEPA 1000U/500MLS 2,000 UNIT/1,000 ML BAG IV ONE (10:15)
[2023-10-24] MEDS ORDERED: VERAPAMIL HCL 10 MG/4 ML VIAL IV ONE (10:16)
[2023-10-24] MEDS ORDERED: LIDOCAINE 1% 20 ML MDV ONE (10:16)
[2023-10-24] MEDS ORDERED: NITROGLYCERIN/D5W 25 MG/250 ML BTL IV ONE (10:16)
[2023-10-24] MEDS ORDERED: FENTANYL CITR 100 MCG/2 ML ONE (10:16)
[2023-10-24] MEDS ORDERED: MIDAZOLAM HCL 2 MG/2 ML INJ ONE (10:17)
[2023-10-24] MEDS ORDERED: HEPARIN 5000 UNIT/ML 1 ML VIAL ONE (10:17)
[2023-10-24] MEDS ORDERED: ATROPINE SULF 1 MG/10 ML SYR IV ONE (10:17)
[2023-10-24] MEDS ORDERED: HEPARIN 10,000 UNIT/10 ML VIAL IV ONE (10:18)
[2023-10-24] MEDS ORDERED: NA CHLORIDE 0.9% 500 ML ONE (10:58)
[2023-10-24] MEDS ORDERED: TICAGRELOR 90 MG TABLET PO ONE (11:40)
[2023-10-24] MEDS ORDERED: CLOPIDOGREL 75 MG TABLET ONE (11:40)
[2023-10-24] MEDS ORDERED: ASPIRIN 325 MG TAB ONE (11:41)
--- NOTE | 2023-10-24 12:07 | PN ---
Date of Progress Note: 10/24/2023 Subjective: Seen by bedside. Continues to have on and off chest pain. Troponin slightly elevated. Currently started on dialysis by Nephrology. Review of Systems: No active chest pain at the present time, but has been having on and off chest pain and no nausea, vo miting, diarrhea. No dysuria, polyuria, or urinary urgency. All other systems reviewed and are nega tive. Physical Examination: Vital Signs: Reviewed. Head and Neck: Pupils are equal, reactive to light. Intact eye movements. No JVD. No cervical lym phadenopathy. Neck is supple. Thyroid is not enlarged. Lungs: Clear to auscultation bilaterally. No rhonchi, wheezing, or crackles. No accessory muscle u se. Heart: Regular rate and rhythm. No extra sounds. Abdomen: Soft, nontender. Bowel sounds positive. No organomegaly. No masses or hernia. No rigidi ty or rebound. Extremities: No edema, clubbing, or cyanosis. Intact pulses. Skin: No rash. Neurologic: Alert, awake, oriented x3. No acute focal deficits appreciated. Investigations: Labs reviewed. Assessment/recommendation: 1.Non-ST elevation myocardial infarction. He is started on dialysis already. We will plan for naima nary angiogram today. Keep n.p.o. for that matter and continue baby aspirin daily. 2.Hypertension and blood pressure is controlled. 3.Dyslipidemia. Continue statin. 4.End-stage renal disease. Hemodialysis was started. SR/MODL Voice ID: [id number] Report ID: [id number]
--- NOTE | 2023-10-24 12:46 | OP ---
Date of Procedure: 10/24/2023 Surgeon: NAMAN DOWLING Procedures Performed: 1.Selective coronary angiogram. 2.Left heart catheterization. Indication: [id number] myocardial infarction. Access: Right radial artery 6-Ukrainian closed with TR band. Complications: None. Bleeding: Less than 20 mL. Anesthesia: Total sedation time was 30 minutes. Description Of Procedure: After risks, benefits, alternatives were explained, patient agreed to proc edure, and signed informed consent. Patient was brought into the cardiac catheterization laboratory, prepped and draped in the usual sterile fashion. Then I accessed right radial artery using Carmolex, c micropuncture kit, placed 6-Ukrainian Slender sheath and took a 5-Ukrainian [place] 4.0 catheter over a J-w thuan into the aortic root, crossed the aortic valve, measured the LVEDP, and the pullback did not brandon rd any gradient, then engaged left main, took standard views and then in the RCA, took standard views and then I removed the catheter and the sheath and placed TR band with good hemostasis. Findings: 1.Left main; very large and normal. It is about 8 mm. 2.LAD; large vessel. Proximal segment appears to be normal. Mid segment, there is a long diffuse 3 0% stenosis and distally about 20% stenosis. Diagonal branches with luminal irregularities. 3.Left circumflex; very large and dominant with luminal irregularities. 4.RCA; small, nondominant with mid 20%. 5.Elevated LVEDP at 29 mmHg. Conclusion: 1.Mild nonobstructive coronary artery disease. 2.Elevated LVEDP. Recommendation: Fluid management via dialysis and high-dose statin and baby aspirin. SR/MODL Voice ID: [id number] Report ID: [id number]
--- NOTE | 2023-10-24 12:55 | CON ---
Date of Consultation: 10/18/2023 Reason For Consultation: Elevated troponin. History Of Present Illness: 47-year-old male, history of hypertension, diabetes, chronic kidney dise ase, severe sleep apnea, presented to the emergency room with significant shortness of breath with mi nimal activities with chest discomfort, pressure-like, radiates to his shoulder. Does found to have an advanced kidney failure and also was diagnosed with influenza. At the present time, he has no kelly st pain. Past Medical History: As outlined above in the HPI. Medications: Refer to reconciliation sheet for detailed list. Allergies: NO KNOWN DRUG ALLERGIES. Family History: No premature coronary artery disease or cancer. Social History: He is an ex-smoker, quit about a month ago. Does not drink or use any drugs. Review of Systems: All systems reviewed and they were negative except as mentioned in the HPI. Physical Examination: Vital Signs: Reviewed. Head and Neck: Pupils are equal, reactive to light. Intact eye movements. No JVD. No cervical lym phadenopathy. Neck is supple. Thyroid is not enlarged. Lungs: Clear to auscultation bilaterally. No rhonchi, rales, or crackles. No accessory muscle use. Heart: Regular rate and rhythm. No extra sounds. Abdomen: Soft, nontender. Bowel sounds positive. No organomegaly. No masses or hernia. No rigidi ty or rebound. Extremities: No edema, clubbing, or cyanosis. Intact pulses. Skin: No rash or nodule. Neurological: Alert, awake, oriented x3. No acute focal deficits appreciated. Investigations: Troponin peaked at 188, and creatinine is 7.72. Assessment And Recommendations: 1.Elevated troponin with chest pain suggestive of [id number] myocardial infarction. At this m oment, he has advanced kidney disease. We will hold off on further cardiac workup. He will need cor onary angiogram. We will plan to do it once his kidneys are more stable and it seems like he might r equire dialysis. If this happens, we will plan for coronary angiogram during this hospital stay. Ot herwise, stress test will be recommended. Continue aspirin and heparin. 2.Advanced kidney failure, likely will require dialysis. 3.Hypertension. Blood pressure is controlled. 4.Dyslipidemia. Recommend Lipitor 40 mg q.h.s. SR/MODL Voice ID: [id number] Report ID: [id number]
[2023-10-24] MEDS: EPOETIN ALFA 10,000 UNIT/ML VIAL IV SCH (16:45)
[2023-10-24] MEDS: ATORVASTATIN 10 MG TAB PO SCH (20:29)
[2023-10-24] MEDS: atenoloL 25 MG TAB PO SCH (20:29)
[2023-10-24] MEDS: TERAZOSIN HCL 5 MG CAP PO SCH (20:30)
--- NOTE | 2023-10-24 21:08 | P.PN ---
Date of Service: 10/24/23 Vital Signs Temp Pulse Resp BP Pulse Ox 97.1 F 64 18 124/60 94 10/24/23 20:00 10/24/23 20:29 10/24/23 20:00 10/24/23 20:29 10/24/23 20:00 Medications Acetaminophen (Acetaminophen 500 Mg Tab) 500 mg PO Q4HP PRN PRN Reason: Pain scale 2-4 (Mild)/Fever Last Admin: 10/22/23 08:34 Dose: 500 mg Albuterol Sulfate (Albuterol 2.5 Mg/3 Ml Neb Kajal) 2.5 mg NEB [id number] PRN PRN Reason: SHORTNESS OF BREATH Last Admin: 10/21/23 00:07 Dose: 2.5 mg Amlodipine Besylate (Amlodipine 5 Mg Tab) 5 mg PO BID [facility] Last Admin: 10/24/23 20:30 Dose: Not Given Atenolol (Atenolol 25 Mg Tab) 25 mg PO BEDTIME [facility] Last Admin: 10/24/23 20:29 Dose: 25 mg Atorvastatin Calcium (Atorvastatin 10 Mg Tab) 10 mg PO BEDTIME [facility] Last Admin: 10/24/23 20:29 Dose: 10 mg Bumetanide (Bumetanide 1 Mg Tablet) 1 mg PO BIDAC [facility] Last Admin: 10/24/23 16:18 Dose: Not Given Calcitriol (Calcitrol 0.25 Mcg Cap) 0.5 mcg PO DAILY [facility] Last Admin: 10/24/23 08:01 Dose: Not Given Calcium Acetate (Calcium Acetate 667 Mg Tab) 667 mg PO TIDWM [facility] Last Admin: 10/24/23 16:18 Dose: Not Given Clonidine HCl (Clonidine Hcl 0.1 Mg Tab) 0.1 mg PO Q6H PRN PRN Reason: SBP GREATER THAN 170 Dextrose (D10w 250 Ml Bag) 125 ml IV PRN PRN PRN Reason: HYPOGLYCEMIA Docusate Sodium (Docusate Na 100 Mg Cap) 100 mg PO BID [facility] Last Admin: 10/24/23 20:30 Dose: Not Given Epoetin Liam (Epoetin Liam 10,000 Unit/Ml Vial) 10,000 unit IV EVERY HD [facility] Last Admin: 10/24/23 16:45 Dose: 10,000 unit Glucagon (Glucagon 1 Mg/Vial) 1 mg IM 1X PRN PRN Reason: HYPOGLYCEMIA Heparin Sodium (Porcine) (Heparin 1,000 Unit/Ml Vial) 2,000 unit IV EVERY HD PRN PRN Reason: Prevent HD System Clotting. Hydralazine HCl (Hydralazine Hcl 20 Mg/Ml Vial) 10 mg IV Q4HP PRN PRN Reason: Goal to achieve SBP in comment Last Admin: 10/17/23 11:21 Dose: 10 mg Albumin Human (Albumin 25%) 50 mls @ 100 mls/hr IV EVERY HD [facility] Ceftriaxone Sodium 1,000 mg/ (Sodium Chloride) 50 mls @ 100 mls/hr IVPB DAILY [facility]; Protocol Last Admin: 10/24/23 08:01 Dose: 50 mls Insulin Human Regular (Insulin Regular (Human) 100 Unit/Ml) 0 unit SQ ACHS [facility]; Protocol Last Admin: 10/24/23 20:31 Dose: 3 unit Losartan Potassium (Losartan Potassium 50 Mg Tablet) 50 mg PO BID [facility] Last Admin: 10/24/23 20:30 Dose: Not Given Morphine Sulfate (Morphine 2 Mg/Ml Syr) 2 mg IV Q6H PRN PRN Reason: Pain scale 8-10 (Severe) Ondansetron HCl (Ondansetron 4 Mg/2 Ml Vial) 4 mg IV Q6HP PRN PRN Reason: NAUSEA / VOMITING Terazosin HCl (Terazosin Hcl 5 Mg Cap) 5 mg PO BEDTIME [facility] Last Admin: 10/24/23 20:30 Dose: 5 mg Tramadol/Acetaminophen (Tramadol 37.5mg/Apap 325mg Per Tab) 1 tab PO Q6H PRN PRN Reason: Pain scale 5-7 (Moderate) Last Admin: 10/20/23 12:10 Dose: 1 tab Microbiology Results 10/17/23 02:10 Blood - Blood Aerobic Blood Culture - Final No growth in 5 days. 10/17/23 02:10 Blood - Blood Anaerobic Blood Culture - Final No growth in 5 days. 10/17/23 01:45 Blood - Blood Aerobic Blood Culture - Final No growth in 5 days. 10/17/23 01:45 Blood - Blood Anaerobic Blood Culture - Final No growth in 5 days. 10/17/23 01:40 Nasopharnyx Influenza Type A Antigen Screen - Final 10/17/23 01:40 Nasopharnyx Influenza Type B Antigen Screen - Final Assessment/ Plan: Nephrology Feeling better No dyspnea No chest pain No acute events overnight Vitals, medications, blood work and imaging reviewed in the chart General: Alert, Oriented x3, Cooperative, NAD. Obese. HEENT: Atraumatic Neck: Supple Respiratory: CTA Cardiovascular: Regular rate/rhythm, Edema none Gastrointestinal: Soft and benign, Distended Musculoskeletal: No clubbing, No contractures Integumentary: No rashes Neurological: Normal speech Laboratory Data (last 24 hrs) 10/17/23 10/17/23 10/17/23 03:40 01:45 01:45 WBC 8.70 Hgb 10.0 L Hct 29.8 L Plt Count 157 PT 13.4 H INR 1.23 APTT 35.1 Sodium Potassium BUN Creatinine Glucose Uric Acid 10.3 H Total Bilirubin 0.3 AST 29 ALT 21 Alkaline Phosphatase 65 10/17/23 01:45 WBC Hgb Hct Plt Count PT INR APTT Sodium 139 Potassium 4.4 BUN 59 H Creatinine 5.90 H Glucose 251 H Uric Acid Total Bilirubin AST ALT Alkaline Phosphatase Normal CHARLENE, SPEP, UIFE 11-29-22 Imagings Data: EXAM DESCRIPTION: US - Renal Ultrasound-Limited - 10/17/2023 7:23 am CLINICAL HISTORY: Acute renal failure COMPARISON: None. FINDINGS: The right kidney measures 12 cm with an increased echotexture. A 1.4 centimeter cyst The left kidney measures 11 cm with an increased echotexture. Hydronephrosis is not seen. No gross abnormality of bladder is noted IMPRESSION: Increased renal echotexture consistent with parenchymal disease LEFT VENTRICULAR WALL MOTION: NORMAL DOPPLER/COLOR FLOW: MILD MITRAL REGURGITATION. COMMENTS: 1. NORMAL LEFT VENTRICULAR EJECTION FRACTION 55-60% AND NORMAL WALL MOTION. 2. NORMAL DIASTOLIC FUNCTION. 3. MILD CONCENTRIC LEFT VENTRICULAR HYPERTROPHY. 4. MILD MITRAL REGURGITATION. Conclusions/Impression: Stage III GILBERTO may be progressive CKD complicated by CRS and Motrin given in the ER for fever CKD IIIa with Proteinuria -No NSAIDs -Continue diuresis -Surgery placed tunneled HD CVC 10-19-23 -HD initiated 10-19-23 -HBV negative -HD as ordered -Dialysis placement pending Metabolic Acidosis, improving HTN with CKD/ CHF -Hydralazine prn -Clonidine prn -Continue Amlodipine -Continue Atenolol -Continue Terazosin -Continue Losartan KWAKU not on home therapy -Bipap prn Acute respiratory failure Diastolic CHF, A/C LVH -Echocardiogram reviewed -Bipap prn -Continue oral Bumex DM II with CKD -Continue RISS Hypoalbuminemia -Consider protein supplementation Anemia in chronic illness -Monitor H&H -Retacrit prn CKD MBD -Continue Phoslo -Continue Ergo and Calcitriol Former Cigarette Smoker -Maintain cessation Hospitalist note reviewed Case reviewed with hospitalist team
[2023-10-25 05:15] VITALS: TEMP 97.1
[2023-10-25 06:53] LABS: Absolute Lymphocytes (CBC) 1.2 K/uL (0.7-4.9); Hematocrit 24.2 % (39.6-49.0); Lymphocytes % 16.6 % (15.3-44.8); MCV 87.4 fL (80-100); MPV 8.5 fL (7.6-11.3); Platelets 231 thou/uL (152-406); RBC Red Blood Cell Count 2.77 M/uL (4.33-5.43)
[2023-10-25 07:04] VITALS: BP 142/67
[2023-10-25 07:12] LABS: Phosphorus 5.7 mg/dL (2.5-4.9); Potassium 3.6 mEq/L (3.5-5.1)
--- NOTE | 2023-10-25 08:55 | P.DS ---
Admission Date: 10/17/23 Discharge Date: 10/25/23 Primary Care Provider: Dr. Pruett Disposition: ROUTINE DISCHARGE Reason for Admission: Possible underlying pneumonia Brief History of Present Illness: Patient is a 47-year-old gentleman who came to the hospital with shortness of breath. Patient has been short of breath for the 24 hours. He reported orthopnea. He got a cardiac workup done about a year prior but has no recollection of his test result.He reported history of renal failure. Patient follows up with nephrology, Dr. Cooper. His talent development coordinator is Dr. Charles. Patient came into the ER for further evaluation. Patient was started on a nonrebreather. Patient has what appears to be a influenza pneumonia. Patient also with acute renal failure. No baseline creatinine. Chest x-ray also demonstrated congestive heart failure/pulmonary edema. He was admitted for further management. Hospital Course: Diagnosis NSTEMI acute hypoxemic respiratory failure secondary to CHF exacerbation, flu pneumonia Acute on chronic diastolic CHF GILBERTO on CKD Influenza Pneumonia Hypertension h/o severe obstructive sleep apnea NIDDM2 NSTEMI Acute hypoxemic respiratory failure secondary to CHF exacerbation, flu pneumonia Acute on chronic CHF Scott chest pain. His talent development coordinator is Dr. Charles. CXR: pulm edema. Repeat chest x-ray showed improvement in pulmonary opacities. troponins elevated. BNP: 2468 on admission Echo ~1 year ago with normal EF per patient. Echo (10/18/23): 53% EF, normal diastolic function, mild concentric LVH, mild MR Cardiology consulted Heart catheterization showed mild coronary artery disease. Medical management recommended. GILBERTO on CKD Patient with acute on chronic renal insufficiency. Patient's prior GFR on the chart was about 50. It has decreased to 5. Renal u/s done over a year ago did not reveal any significant pathology. Renal u/s (10/17): Increased renal echotexture consistent with parenchymal disease. Nephrology consulted - renal dosed all medications. Associated metabolic acidosis. Dr. Cooper recommended initiating hemodialysis Dr. Dunn consulted for HD cath placement (10/18); s/p tunneled HD cath placed(10/19) Dialysis initiated. Nephrology recommend routine hemodialysis on Tuesday and Tuesday Patient has dialysis chair time as outpatient Influenza Pneumonia Completed 5 days of tamiflu (10/17-10/22) pulm Dr. Lyon assisted with management Hypertension Hypertensives adjusted during the hospital stay by nephrology. Blood pressure improved with the current regimen. h/o severe obstructive sleep apnea ABGs did not reveal any significant degree of hypercapnia. NIDDM2 Managed with ACHS accucheck. SSI. Metformin discontinued and replaced with Lantus insulin. Diabetes teaching done. Vital Signs/Physical Exam: Temp Pulse Resp BP Pulse Ox 97.1 F 62 18 142/67 H 95 10/25/23 07:03 10/25/23 07:03 10/25/23 07:03 10/25/23 07:03 10/25/23 07:03 General: Alert, In no apparent distress, Oriented x3, Obese HEENT: Mucous membr. moist/pink Neck: JVD not distended Respiratory: Clear to auscultation bilaterally, Normal air movement, Other (Right anterior chest dialysis catheter) Cardiovascular: No edema, Regular rate/rhythm, Normal S1 S2 Gastrointestinal: Normal bowel sounds, Soft and benign, Non-distended, No tenderness Musculoskeletal: No swelling Integumentary: No rashes, No cyanosis Neurological: Normal strength at 5/5 x4 extr Laboratory Data at Discharge: WBC 7.50 thou/uL (4.3-10.9) 10/25/23 06:10 Hgb 8.4 g/dL (13.6-17.9) L 10/25/23 06:10 Hct 24.2 % (39.6-49.0) L 10/25/23 06:10 Plt Count 231 thou/uL (152-406) 10/25/23 06:10 PT 12.6 SECONDS (9.5-12.5) H 10/24/23 07:59 INR 1.15 10/24/23 07:59 APTT 35.1 SECONDS (24.3-36.9) 10/17/23 01:45 Sodium 133 mEq/L (136-145) L 10/25/23 06:10 Potassium 3.6 mEq/L (3.5-5.1) 10/25/23 06:10 BUN 66 mg/dL (7-18) H 10/25/23 06:10 Creatinine 9.14 mg/dL (0.70-1.30) H 10/25/23 06:10 Glucose 251 mg/dL (74-106) H 10/25/23 06:10 Uric Acid 8.5 mg/dL (3.5-7.2) H 10/21/23 06:40 Phosphorus 5.7 mg/dL (2.5-4.9) H 10/25/23 06:10 Magnesium 2.0 mg/dL (1.6-2.4) 10/22/23 06:26 Total Bilirubin 0.2 mg/dL (0.2-1.0) 10/22/23 06:26 AST 52 U/L (15-37) H 10/22/23 06:26 ALT 22 U/L (16-61) 10/22/23 06:26 Alkaline Phosphatase 56 U/L (45-117) 10/22/23 06:26 Home Medications: Amlodipine [Norvasc*] 1 tab PO DAILY 10/17/23 Simvastatin 1 tab PO BEDTIME 10/17/23 Terazosin HCl 1 mg PO BEDTIME 10/17/23 Alcohol Antiseptic Pads [Alcohol Prep Pad] 1 each TP DAILY #1 box 10/25/23 Aspirin [Aspirin EC 81 MG] 81 mg PO DAILY #30 tab 10/25/23 Atorvastatin Calcium [Lipitor] 40 mg PO BEDTIME #30 tab 10/25/23 Blood Sugar Diagnostic [Glucose Test Strip] 1 each MC DAILY #30 strip 10/25/23 Blood-Glucose Meter [Blood Glucose Monitoring] 1 each MC DAILY #1 kit 10/25/23 Bumetanide [Bumex*] 1 mg PO BIDAC #60 tab 10/25/23 Calcium Acetate [Phoslo*] 667 mg PO TIDWM #90 tab 10/25/23 Docusate [Colace Cap*] 100 mg PO BID #60 cap 10/25/23 Epoetin [Procrit*] 10,000 unit IV EVERY HD vial 10/25/23 Insulin Glargine-Yfgn [Semglee (Yfgn)] 15 unit SQ DAILY #15 ml 10/25/23 Lancets 1 each MC DAILY #100 ea 10/25/23 Losartan Potassium [Cozaar*] 50 mg PO BID #60 tab 10/25/23 Pen Needle, Diabetic [Pen [place]] 1 each MC DAILY #100 10/25/23 atenoloL [Tenormin*] 25 mg PO BEDTIME #30 tab 10/25/23 calcitrioL [Calcitriol] 0.5 mcg PO DAILY #30 cap 10/25/23 New Medications: Alcohol Antiseptic Pads [Alcohol Prep Pad] 1 each TP DAILY #1 box Aspirin [Aspirin EC 81 MG] 81 mg PO DAILY #30 tab Blood-Glucose Meter [Blood Glucose Monitoring] 1 each MC DAILY #1 kit Bumetanide [Bumex*] 1 mg PO BIDAC #60 tab calcitrioL [Calcitriol] 0.5 mcg PO DAILY #30 cap Docusate [Colace Cap*] 100 mg PO BID #60 cap Losartan Potassium [Cozaar*] 50 mg PO BID #60 tab Blood Sugar Diagnostic [Glucose Test Strip] 1 each MC DAILY #30 strip Lancets 1 each MC DAILY #100 ea Atorvastatin Calcium [Lipitor] 40 mg PO BEDTIME #30 tab Pen Needle, Diabetic [Pen [place]] 1 each MC DAILY #100 Calcium Acetate [Phoslo*] 667 mg PO TIDWM #90 tab Insulin Glargine-Yfgn [Semglee (Yfgn)] 15 unit SQ DAILY #15 ml atenoloL [Tenormin*] 25 mg PO BEDTIME #30 tab Diet: Renal (diabetic diet) Activity: Ad leonel Followup: John Pruett DO, DO [Primary Care Provider] - Odell Cooper DO [ACTIVE - CAN ADMIT] - 1 Day (At the dialysis center tomorrow.) Time spent managing pt's care (in minutes): 38
[2023-10-25 08:59] LABS: Blood Morphology Comment NOT SEEN (NOT SEEN); Platelet Estimate ADEQ
[2023-10-25] MEDS: AMLODIPINE 5 MG TAB PO SCH (09:06)
[2023-10-25] MEDS: LOSARTAN POTASSIUM 50 MG TABLET PO SCH (09:06)
[2023-10-25] MEDS: DOCUSATE NA 100 MG CAP PO SCH (09:06)
[2023-10-25] MEDS: CALCIUM ACETATE 667 MG TAB PO SCH ×2 (09:06→12:15)
[2023-10-25] MEDS: CALCITROL 0.25 MCG CAP PO SCH (09:06)
[2023-10-25] MEDS: INSULIN REGULAR (HUMAN) 100 UNIT/ML SQ SCH ×2 (09:07→12:14)
[2023-10-25] MEDS: BUMETANIDE 1 MG TABLET PO SCH (09:07)
[2023-10-25] MEDS: CEFTRIAXONE 1,000 MG in NA CHLORIDE 0.9% 50 ML IVPB SCH (09:07)
[2023-10-25 10:12] VITALS: O2SAT 92
[2023-10-25] MEDS ORDERED: INSULIN GLARGINE 100 UNIT/ML SQ SCH (12:30)
--- NOTE | 2023-10-25 19:25 | P.PN ---
Date of Service: 10/25/23 Vital Signs Temp Pulse Resp BP Pulse Ox 97.1 F 62 18 142/67 H 95 10/25/23 07:03 10/25/23 07:03 10/25/23 07:03 10/25/23 07:03 10/25/23 07:03 Microbiology Results 10/17/23 02:10 Blood - Blood Aerobic Blood Culture - Final No growth in 5 days. 10/17/23 02:10 Blood - Blood Anaerobic Blood Culture - Final No growth in 5 days. 10/17/23 01:45 Blood - Blood Aerobic Blood Culture - Final No growth in 5 days. 10/17/23 01:45 Blood - Blood Anaerobic Blood Culture - Final No growth in 5 days. 10/17/23 01:40 Nasopharnyx Influenza Type A Antigen Screen - Final 10/17/23 01:40 Nasopharnyx Influenza Type B Antigen Screen - Final Assessment/ Plan: Nephrology Feeling better No dyspnea No chest pain No acute events overnight Vitals, medications, blood work and imaging reviewed in the chart General: Alert, Oriented x3, Cooperative, NAD. Obese. HEENT: Atraumatic Neck: Supple Respiratory: CTA Cardiovascular: Regular rate/rhythm, Edema none Gastrointestinal: Soft and benign Musculoskeletal: No clubbing, No contractures Integumentary: No rashes Neurological: Normal speech Laboratory Data (last 24 hrs) 10/17/23 10/17/23 10/17/23 03:40 01:45 01:45 WBC 8.70 Hgb 10.0 L Hct 29.8 L Plt Count 157 PT 13.4 H INR 1.23 APTT 35.1 Sodium Potassium BUN Creatinine Glucose Uric Acid 10.3 H Total Bilirubin 0.3 AST 29 ALT 21 Alkaline Phosphatase 65 10/17/23 01:45 WBC Hgb Hct Plt Count PT INR APTT Sodium 139 Potassium 4.4 BUN 59 H Creatinine 5.90 H Glucose 251 H Uric Acid Total Bilirubin AST ALT Alkaline Phosphatase Normal CHARLENE, SPEP, UIFE 11-29-22 Imagings Data: EXAM DESCRIPTION: US - Renal Ultrasound-Limited - 10/17/2023 7:23 am CLINICAL HISTORY: Acute renal failure COMPARISON: None. FINDINGS: The right kidney measures 12 cm with an increased echotexture. A 1.4 centimeter cyst The left kidney measures 11 cm with an increased echotexture. Hydronephrosis is not seen. No gross abnormality of bladder is noted IMPRESSION: Increased renal echotexture consistent with parenchymal disease LEFT VENTRICULAR WALL MOTION: NORMAL DOPPLER/COLOR FLOW: MILD MITRAL REGURGITATION. COMMENTS: 1. NORMAL LEFT VENTRICULAR EJECTION FRACTION 55-60% AND NORMAL WALL MOTION. 2. NORMAL DIASTOLIC FUNCTION. 3. MILD CONCENTRIC LEFT VENTRICULAR HYPERTROPHY. 4. MILD MITRAL REGURGITATION. Conclusions/Impression: Stage III GILBERTO may be progressive CKD complicated by CRS and Motrin given in the ER for fever CKD IIIa with Proteinuria -No NSAIDs -Continue diuresis -Surgery placed tunneled HD CVC 10-19-23 -HD initiated 10-19-23 -HBV negative -HD as ordered Metabolic Acidosis, improving HTN with CKD/ CHF -Hydralazine prn -Clonidine prn -Continue Amlodipine -Continue Atenolol -Continue Terazosin -Continue Losartan KWAKU not on home therapy -Bipap prn Acute respiratory failure Diastolic CHF, A/C LVH -Echocardiogram reviewed -Bipap prn -Continue oral Bumex DM II with CKD -Continue RISS Hypoalbuminemia -Consider protein supplementation Anemia in chronic illness -Monitor H&H -Retacrit prn CKD MBD -Continue Phoslo -Continue Ergo and Calcitriol Former Cigarette Smoker -Maintain cessation Hospitalist note reviewed Case reviewed with hospitalist team
== END 2023-10-25 14:05 | disposition home or self-care (01) | DRG 280 ==
LOC: ER 01:21 → ERHOLD 04:25 → 4TH 07:48
PROVIDERS: ADMIT Hospitalist; ATTEND Internal Medicine
PROC: 5A09557 Assistance with Respiratory Ventilation, Greater than 96 Consecutive Hours, Continuous Positive Airway Pressure (ICD-10-PCS; 2023-10-17)
PROC: 4A033R1 Measurement of Arterial Saturation, Peripheral, Percutaneous Approach (ICD-10-PCS; 2023-10-17)
PROC: 02HV33Z Insertion of Infusion Device into Superior Vena Cava, Percutaneous Approach (ICD-10-PCS; 2023-10-19)
PROC: 5A1D70Z Performance of Urinary Filtration, Intermittent, Less than 6 Hours Per Day (ICD-10-PCS; 2023-10-19)
PROC: 0JH63XZ Insertion of Tunneled Vascular Access Device into Chest Subcutaneous Tissue and Fascia, Percutaneous Approach (ICD-10-PCS; principal; 2023-10-19 09:45)
PROC: 4A023N7 Measurement of Cardiac Sampling and Pressure, Left Heart, Percutaneous Approach (ICD-10-PCS; 2023-10-24)
PROC: B2111ZZ Fluoroscopy of Multiple Coronary Arteries using Low Osmolar Contrast (ICD-10-PCS; 2023-10-24)
DX: I13.2 Hypertensive heart and chronic kidney disease with heart failure and with stage 5 chronic kidney disease, or end stage renal disease (principal); I21.A1 Myocardial infarction type 2; I50.33 Acute on chronic diastolic (congestive) heart failure; J10.00 Influenza due to other identified influenza virus with unspecified type of pneumonia; J96.01 Acute respiratory failure with hypoxia; N18.6 End stage renal disease; N17.9 Acute kidney failure, unspecified; E87.20 Acidosis, unspecified; E11.22 Type 2 diabetes mellitus with diabetic chronic kidney disease; D63.1 Anemia in chronic kidney disease; D63.8 Anemia in other chronic diseases classified elsewhere; I16.0 Hypertensive urgency; G47.33 Obstructive sleep apnea (adult) (pediatric); E88.09 Other disorders of plasma-protein metabolism, not elsewhere classified; E78.00 Pure hypercholesterolemia, unspecified; Z79.02 Long term (current) use of antithrombotics/antiplatelets; Z79.84 Long term (current) use of oral hypoglycemic drugs; Z11.52 Encounter for screening for COVID-19; Z79.899 Other long term (current) drug therapy; Z87.891 Personal history of nicotine dependence
CPT/HCPCS: 36415; 71045; 71046; 76000; 76775; 76937; 80048; 80053; 80069; 80076; 81001; 82043; 82435; 82570; 82805; 82947; 83520; 83605; 83735; 83880; 84100; 84132; 84145; 84156; 84300; 84484; 84520; 84550; 85025; 85027; 85610; 85730; 86021; 86160; 86704; 86706; 86803; 87040; 87340; 87804; 87811; 90935; 93005; 93306; 93458; 94010; 94640; 94660; 94760; 96365; 96375; 99152; 99153; 99285; C1752; C1893; J0360; J0461; J0690; J0696; J1644; J1815; J1940; J2001; J2250; J2270; J2371; J2405; J2704; J2920; J3010; J7030; J7040; J7050; J7613; J7644; P9047; Q4081; Q9966